=== PATIENT | female | born 1975 | race Caucasian/White ===

== ENCOUNTER → 2017-10-26 19:13 | Outpatient (CLI) | payer OTHER, SELFPAY ==
[2017-10-29 11:42] LABS: HPV Reflexed? NOT INDICATED
== END ==
PROVIDERS: Family Provider Family Medicine; PCP Family Medicine; Visit Provider Obstetrics & Gynecology
DX: Z12.4 Encounter for screening for malignant neoplasm of cervix (principal)
CPT/HCPCS: 88175; G0145

== ENCOUNTER → 2017-11-24 14:36 | Outpatient (CLI) | payer OTHER, SELFPAY ==
[2017-11-24 14:49] LABS: Red Blood Cells-Urine 0 SEEN /hpf (0-5)
[2017-11-24 16:14] LABS: Color, Urine Yellow (Yellow); Glucose, Dipstick Normal (Normal); Ketone-Dipstick Negative (Negative); Leukocyte Esterase-Dipstick 25 /ul (Negative); Nitrite-Dipstick Negative (Negative); Occult Blood-Urine 25 /ul (Negative); Protein-Dipstick 100 mg/dl (Negative); Specific Gravity, Urine 1.025 (1.002-1.030); Urine Bilirubin Dipstick Negative (Negative); Urine Clarity Sl. Cloudy (Clear); Urine Urobilinogen Normal (Normal)
[2017-11-24 16:24] LABS: Bacteria RARE /hpf (None Seen); Mucous, Urine 1+ /hpf (<or=2+); Squamous Epithelial Cells - UA 5-10 SEEN /hpf (5-10); White Blood Cells 0-5 SEEN /hpf (0-5)
== END ==
PROVIDERS: Family Provider Family Medicine; PCP Family Medicine
DX: N39.0 Urinary tract infection, site not specified (principal)
CPT/HCPCS: 81001; 87086; 87088

== ENCOUNTER → 2017-11-29 09:33 | Outpatient (CLI) | payer SELFPAY ==
--- NOTE | 2017-11-29 09:44 | US_ITS ---
STUDY: RENAL ULTRASOUND - COMPLETE REASON FOR EXAM: Female, 42 years old. Hematuria TECHNIQUE: Ultrasound evaluation of the kidneys was performed with real-time and static sneed-scale imaging. COMPARISON: None. FINDINGS: The study is technically limited secondary to patient obesity. RIGHT KIDNEY: Normal location of the right kidney, which is normal in size. The right kidney measures 13.3 x 4.5 x 5.9 cm. There is a normal cortex of the right kidney. The renal cortex measures 1.9 cm. There is no right renal mass or cyst. There are no right renal calculi. There is no right hydronephrosis. DISTAL RIGHT URETER: There is non-visualization of the distal right ureter. There is no demonstrated right ureterovesical junction calculus. There is no demonstrated right ureteral jet. LEFT KIDNEY: Normal location of the left kidney, which is normal in size. The left kidney measures 12.1 x 4.6 x 4.4 cm. There is a normal cortex of the left kidney. The renal cortex measures 1.3 cm. There is no left renal mass or cyst. There are no left renal calculi. There is no left hydronephrosis. DISTAL LEFT URETER: There is non-visualization of the distal left ureter. There is no demonstrated left ureterovesical junction calculus. There is a visualized left ureteral jet. BLADDER: The distended urinary bladder has a volume of 54 ml. There is a normal wall thickness of the distended urinary bladder. There is no demonstrated mass within the urinary bladder. There are no demonstrated bladder calculi. US/Kidney and Bladder IMPRESSION: Technically limited study secondary to patient obesity. The kidneys appear within normal limits. The left ureteral jet was identified. The right ureteral jet was not seen. The bladder is unremarkable. Electronically Signed: Michael Alejandro MD at 23:48 EDT , Service support ,
--- NOTE | 2017-11-29 11:03 | RAD_ITS ---
STUDY: X-RAY - ABDOMEN/PELVIS REASON FOR EXAM: Female, 42 years old. Hematuria times several months TECHNIQUE: Two AP supine views of the abdomen and pelvis. COMPARISON: None. FINDINGS: The lung bases are not included in the [id number] of the study. There is an unremarkable bowel gas pattern. There is no demonstrated free abdominal air. The visualized liver, spleen and kidneys are grossly normal in size and morphology. Normal soft tissue structures. Normal visualized osseous structures. RAD/Abdomen Single View IMPRESSION: Normal x-ray examination of the abdomen and pelvis. Electronically Signed: Michael Alejandro MD at 23:49 EDT , Service support ,
== END ==
PROVIDERS: Family Provider Family Medicine; PCP Family Medicine
DX: R31.9 Hematuria, unspecified (principal)
CPT/HCPCS: 74018; 76770

== ENCOUNTER 2017-12-10 13:23 | Emergency (ER) | payer OTHER, SELFPAY ==
[2017-12-10 13:25] VITALS: BP 156/86; PULSE 112; RESP 16; TEMP 36.8; O2SAT 100; BMI 35.0
[2017-12-10 13:41] VITALS: BP 129/99; BP 139/100; BP 140/91; PULSE 101; PULSE 105; PULSE 117
[2017-12-10 14:06] LABS: Absolute Lymphocyte Count 2.28 X10^3/ul (0.83-4.51); Basophil# 0.02 X10^3/uL; Basophil% 0.3 % (0-1); Eosinophil# 0.03 X10^3/uL; Eosinophils% 0.4 % (0-5); Hematocrit 41.7 % (37-47); Hemoglobin 13.7 g/dl (12.0-15.0); Lymphocyte # 2.28 X10^3/ul (4.0); Lymphocyte % 29.3 % (19-41); Mean Corp Hgb Conc 32.9 g/gl (32-36); Mean Corpuscular Hgb 29.7 pg (27.0-32.0); Mean Corpuscular Volume 90.5 fL (81-99); Monocyte# 0.42 X10^3/uL; Monocyte% 5.4 % (0-10); Neutrophil # 5.03 X10^3/uL (2.7-7.7); Neutrophil % 64.6 % (47-70); Platelet Count 83 K/mm3 (150-450); RBC Distribution Width CV 12.9 % (11.6-14.6); RBC Distribution Width SD 42.6 fl (35.1-43.9); Red Blood Count 4.61 M/mm3 (4.2-5.4); White Blood Count 7.8 K/mm3 (4.4-11.0)
[2017-12-10 14:09] LABS: POSITIVE COUNT NO; POSITIVE DIFFERENTIAL NO; POSITIVE MORPHOLOGY NO
[2017-12-10 14:24] LABS: Anion Gap 7 (5-15); BUN 14 mg/dL (7-18); BUN/Creat Ratio 22.2 RATIO (10-20); Calcium,Total 8.8 mg/dL (8.5-10.1); Chloride 108 mmol/L (98-107); Creatinine, Serum 0.63 mg/dL (0.55-1.02); EST Glomerular Filtration Rate 110 mL/min (>60); Est Glom Filt Rate - Afr Amer 133 mL/min (>60); Estimated Creatinine Clearance 101.48 ml/min; Glucose 89 mg/dL (74-106); Potassium 3.7 mmol/L (3.5-5.1); Sodium Level 139 mmol/L (136-145)
[2017-12-10 14:30] VITALS: BP 141/101
[2017-12-10 14:45] VITALS: BP 139/90
[2017-12-10 15:00] VITALS: BP 146/100
[2017-12-10 15:25] LABS: Bacteria 0 SEEN /hpf (None Seen); Mucous, Urine 0 SEEN /hpf (<or=2+); White Blood Cells 0 SEEN /hpf (0-5)
[2017-12-10 15:26] VITALS: BP 139/104; PULSE 93; RESP 14; O2SAT 98
[2017-12-10 15:28] LABS: Color, Urine Yellow (Yellow); Glucose, Dipstick Normal (Normal); Ketone-Dipstick Negative (Negative); Leukocyte Esterase-Dipstick Negative /ul (Negative); Nitrite-Dipstick Negative (Negative); Occult Blood-Urine 25 /ul (Negative); Protein-Dipstick 100 mg/dl (Negative); Urine Bilirubin Dipstick Negative (Negative); Urine Clarity Sl. Cloudy (Clear); Urine Urobilinogen Normal (Normal)
[2017-12-10 15:54] LABS: Red Blood Cells-Urine 0-5 SEEN /hpf (0-5); Squamous Epithelial Cells - UA 0-5 SEEN /hpf (5-10)
[2017-12-10 16:23] LABS: Platelet Count 207 K/mm3 (150-450)
--- NOTE | 2017-12-10 16:23 | ED.DCSUM_ITS ---
- ER Visit Summary Date of Service: 12/10/17 Chief Complaint: [Abnormal labs] History of Present Illness: The patient is a 42 F [presents the emergency department with complaint of abnormal labs and was told that she needed a blood transfusion. Patient states that she had blood work done at her primary care physician's office 2 days ago and today she was called and told that she may have lymphoma and that she needed a blood transfusion. Patient states that she had several urinary tract infections over last several months and is been having a lot of fatigue so basic labs were done yesterday. Patient denies urinary symptoms currently. Patient denies any fevers currently. She denies any chest pain or shortness of breath. Patient's last menstrual period was 5 days ago and it was very light. Patient denies any rectal bleeding. Blood work sent with patient showed a hemoglobin of 4.7 along with a platelet count of 18,000 and a white blood cell count of 1.6.] Physical Examination: [HEENT-PERRLA, EOMI. Cranial nerves II through XII grossly intact. TMs clear. Mucous membranes moist. No adenopathy. Cardiovascular-regular rate and rhythm without murmur or ectopy Lungs-clear to auscultation, chest wall stable without crepitus or subcu emphysema Abdomen-normoactive bowel sounds, soft, nontender, no rebound or rigidity, no peritoneal signs. Extremities-intact ?4, normal range of motion, normal pulses, atraumatic] Test Results: [CBC with differential obtained here showed a white count of 7.8, hemoglobin 13.7, hematocrit 46, platelets 83. Chemistries unremarkable. BUN was 14 and creatinine 0.63. Urinalysis was normal. Orthostatic vital signs were negative.] Emergency Department Course and Treatment: [I discussed case with patient's primary care physician who was able to send old lab values the patient had had drawn prior to the labs done on 12/09/2017. On prior CBCs one dated from September 2017 it was noted that her CBC was normal. Patient also had a CBC from 2016 and October which also was normal. I did discuss case with Dr. Erickson is on-call for oncology who asked that I send off a repeat platelet count and a sodium citrate tube and if normal then the patient did not need to follow-up with normal their office however if the platelet count is still low patient to follow -up as an outpatient with her office for the thrombocytopenia. At this point is felt that either a lab error occurred on the blood work from 2 days ago versus possibly accidental exchange of patient lab values. Patient clinically does not appear ill.] Treatment Plan: [Follow-up with primary care physician and Dr. Erickson] Disposition: [Discharged home in stable condition] Impression: [Feared complaint of abnormal labs] This note was generated with [employer] dictation software. It may contain incorrect words, spelling, and punctuation that were not noted in review of the chart prior to signing ED Disposition - Plan for ED Patient: Chief Complaint: General Illness Referrals: Scott Kurtz [Primary Care Provider] -
--- NOTE | 2017-12-10 16:23 | ED.DEP ---
ED Disposition - Plan for ED Patient: Chief Complaint: General Illness Referrals: Scott Kurtz [Primary Care Provider] - 3-5 Days Linnea Erickson MD [STAFF PHYSICIAN] - As Needed Additional Instructions: Concern for abnormal labs may have been to Laboratory error or accidental mixing of patient results.
== END 2017-12-10 16:54 | disposition home or self-care (01) ==
PROVIDERS: Emergency Provider Emergency Medicine
DX: Z03.89 Encounter for observation for other suspected diseases and conditions ruled out (principal); R79.9 Abnormal finding of blood chemistry, unspecified; R53.83 Other fatigue; Z87.440 Personal history of urinary (tract) infections; I25.10 Atherosclerotic heart disease of native coronary artery without angina pectoris; E11.9 Type 2 diabetes mellitus without complications; E03.9 Hypothyroidism, unspecified; Z86.79 Personal history of other diseases of the circulatory system; Z86.39 Personal history of other endocrine, nutritional and metabolic disease; Z79.899 Other long term (current) drug therapy
CPT/HCPCS: 80048; 81001; 85025; 85049; 86850; 86900; 99284; A4216

== ENCOUNTER → 2018-01-17 13:05 | Outpatient (CLI) | payer OTHER, SELFPAY ==
[2018-01-17 16:11] LABS: hCG Titer Quant., Serum 14 mIU/mL (<9 non-preg)
== END ==
PROVIDERS: Visit Provider Obstetrics & Gynecology
DX: O20.0 Threatened abortion (principal); N91.2 Amenorrhea, unspecified; Z3A.00 Weeks of gestation of pregnancy not specified
CPT/HCPCS: 36415; 84702

== ENCOUNTER → 2018-01-24 14:33 | Outpatient (CLI) | payer OTHER, SELFPAY ==
[2018-01-24 15:00] LABS: Hematocrit 43.1 % (37-47); Hemoglobin 14.2 g/dl (12.0-15.0); Mean Corp Hgb Conc 32.9 g/gl (32-36); Mean Corpuscular Hgb 30.3 pg (27.0-32.0); Mean Corpuscular Volume 92.1 fL (81-99); Mean Platelet Vol. 10.4 fl (6.2-12.0); Platelet Count 180 K/mm3 (150-450); RBC Distribution Width CV 12.5 % (11.6-14.6); RBC Distribution Width SD 41.2 fl (35.1-43.9); Red Blood Count 4.68 M/mm3 (4.2-5.4); White Blood Count 7.9 K/mm3 (4.4-11.0)
[2018-01-24 15:02] LABS: Scan Indicated on CBC? Y/N NO
== END ==
PROVIDERS: Visit Provider Obstetrics & Gynecology
DX: O03.9 Complete or unspecified spontaneous abortion without complication (principal); R51 Headache; R42 Dizziness and giddiness
CPT/HCPCS: 36415; 85027

== ENCOUNTER → 2018-03-22 15:09 | Outpatient (CLI) | payer OTHER, SELFPAY ==
[2018-03-22 15:57] LABS: Color, Urine Yellow (Yellow); Glucose, Dipstick Normal (Normal); Ketone-Dipstick 5 mg/dl (Negative); Leukocyte Esterase-Dipstick 25 /ul (Negative); Nitrite-Dipstick Negative (Negative); Occult Blood-Urine 25 /ul (Negative); Protein-Dipstick 100 mg/dl (Negative); Specific Gravity, Urine 1.025 (1.002-1.030); Urine Bilirubin Dipstick Negative (Negative); Urine Clarity Clear (Clear); Urine Urobilinogen 1 mg/dl (Normal)
[2018-03-22 16:11] LABS: Red Blood Cells-Urine 0-5 SEEN /hpf (0-5); Squamous Epithelial Cells - UA 0-5 SEEN /hpf (5-10); White Blood Cells 0-5 SEEN /hpf (0-5)
[2018-03-22 16:12] LABS: Bacteria 1+ /hpf (None Seen); Mucous, Urine RARE /hpf (<or=2+)
[2018-03-22 16:39] LABS: Anion Gap 10 (5-15); Chloride 105 mmol/L (98-107); Potassium 3.9 mmol/L (3.5-5.1); Sodium Level 139 mmol/L (136-145); Thyroid Stim Hormone (TSH) 0.08 uIU/mL (0.358-3.74)
== END ==
DX: E03.9 Hypothyroidism, unspecified (principal); E66.9 Obesity, unspecified
CPT/HCPCS: 36415; 80051; 81001; 84443; 84481

== ENCOUNTER → 2018-03-24 09:10 | Outpatient (CLI) | payer OTHER, SELFPAY ==
[2018-03-24 10:43] LABS: PTHIN 86.8 pg/mL (18.4-80.1)
[2018-03-25 09:02] LABS: Thyroid Peroxidase AB 9 IU/mL (0-34)
== END ==
DX: E03.9 Hypothyroidism, unspecified (principal); E66.9 Obesity, unspecified
CPT/HCPCS: 83970; 86376

== ENCOUNTER → 2018-04-12 15:18 | Outpatient (CLI) | payer OTHER, SELFPAY ==
[2018-04-12 16:34] LABS: Calcium,Total 9.1 mg/dL (8.5-10.1)
[2018-04-13 09:14] LABS: PTHIN 63.9 pg/mL (18.4-80.1)
[2018-04-13 09:16] LABS: Vitamin D,25 Hydroxy 18.4 ng/mL (29.95-100.01)
== END ==
DX: E03.9 Hypothyroidism, unspecified (principal); E21.0 Primary hyperparathyroidism
CPT/HCPCS: 36415; 82306; 82310; 82330; 83970

== ENCOUNTER → 2018-04-22 12:30 | Outpatient (CLI) | payer OTHER, SELFPAY ==
[2018-04-22 13:43] LABS: Calcium,Total 8.6 mg/dL (8.5-10.1)
[2018-04-22 13:58] LABS: PTHIN 165.3 pg/mL (18.4-80.1)
== END ==
DX: E21.0 Primary hyperparathyroidism (principal)
CPT/HCPCS: 36415; 82310; 82330; 83970

== ENCOUNTER → 2018-06-08 09:29 | Outpatient (CLI) | payer OTHER, SELFPAY ==
[2018-06-08 11:14] LABS: Calcium,Total 9.2 mg/dL (8.5-10.1); Free T3 5.2 pg/mL (2.18-3.98)
[2018-06-08 11:17] LABS: Vitamin D,25 Hydroxy 38.1 ng/mL (29.95-100.01)
--- OUTSIDE RECORDS SUMMARY | 2018-08-03 16:46 | XMS RPT_ITS ---
:1975 Author Organization OHIP Support Name Relationship Address Phone UE Unavailable Unavailable Unavailable GOODTONI BETANCOURTE Unavailable [address] + [place] [address] UE Unavailable Unavailable Unavailable GOODPATRIA BETANCOURT Unavailable [address] + [place] [address] UE Unavailable Unavailable Unavailable GOODTONI BETANCOURTE Unavailable [address] + [place] [address] UE Unavailable Unavailable Unavailable GOODTONIE Unavailable [address] + [place] [address] UE Unavailable Unavailable Unavailable GOODTONI BETANCOURTE Unavailable [address] + [place] [address] UE Unavailable Unavailable Unavailable GOODTONI BETANCOURTE Unavailable [address] + [place] [address] UE Unavailable Unavailable Unavailable GOODTONI BETANCOURTE Unavailable [address] + [place] [address] UE Unavailable Unavailable Unavailable GOOD PATRIA Unavailable [address] + [place] [address] UE Unavailable Unavailable Unavailable GOOD PATRIA Unavailable [address] + [place] [address] UE Unavailable Unavailable Unavailable GOOD PATRIA Unavailable [address] + [place] [address] UE Unavailable Unavailable Unavailable GOOD PATRIA Unavailable [address] + [place] [address] UE Unavailable Unavailable Unavailable GOOD PATRIA Unavailable [address] + [place] [address] UE Unavailable Unavailable Unavailable GOOD, PATRIA Unavailable [address] [phone] [place] [address] UE Unavailable Unavailable Unavailable GOOD, PATRIA Unavailable [address] [phone] [place] [address] UE Unavailable Unavailable Unavailable GOOD, PATRIA Unavailable [address] [phone] [place] [address] Care Team Providers Name Role Phone MARV LOUIE, DR. GEORGES Attending Unavailable MARV LOUIE, DR. GEORGES Primary Care Unavailable FANNING, CONCEPCION Oconnor Referring Unavailable FANNING, CONCEPCION Oconnor Referring Unavailable FANNING, CONCEPCION Oconnor Attending Unavailable RESSEGERSCOTT BENJIE Referring Unavailable FANNING, CONCEPCION Oconnor Referring Unavailable FANNING, CONCEPCION cOonnor Attending Unavailable FANNING, CONCEPCION Oconnor Referring Unavailable KilConnie cleary Attending Unavailable Ashtyn, Dennis Attending Unavailable RESSEGERSCOTT Referring Unavailable Benekos, Lindsey Attending Unavailable Luis Alberto, Skip Primary Care Unavailable Benekos, Lindsey Referring Unavailable Luis Alberto, Skip Primary Care Unavailable RESSCOTT KNOWLES Attending Unavailable RESSESCOTT MATTA Referring Unavailable RESSEPAXTON, SCOTT Attending Unavailable RESSEGER, SCOTT Referring Unavailable Luis Alberto, Skip Primary Care Unavailable Ashtyn, Dennis Attending Unavailable Ashtyn, Dennis Referring Unavailable RESSEGER, SCOTT Primary Care Unavailable UngSanjuana laird Attending Unavailable BERESESCOTT MATTA Primary Care Unavailable Benekoshravan, Lindsey Attending Unavailable BenekoLindsey cheney Attending Unavailable BERESEGER SCOTT Primary Care Unavailable RESSEGERSCOTT Attending Unavailable RESSEGER, SCOTT Primary Care Unavailable RESSEGERSCOTT Referring Unavailable RESSEGERSCOTT Attending Unavailable RESSESCOTT MATTA Primary Care Unavailable RESELENI SCOTT Referring Unavailable SHAHEEN ELIAS Attending Unavailable SHAHEEN ELIAS Referring Unavailable SCOTT KURTZ Primary Care Unavailable SCOTT KURTZ Consulting Unavailable SHAHEEN ELIAS Attending Unavailable SCOTT KURTZ Primary Care Unavailable SHAHEEN ELIAS Referring Unavailable SCOTT KURTZ Attending Unavailable SCOTT KURTZ Primary Care Unavailable SCOTT KURTZ Referring Unavailable SCOTT KURTZ Attending Unavailable BERESEGER, SCOTT Referring Unavailable RESSEGER, SCOTT Primary Care Unavailable PROBLEMS PROBLEMS DATE TYPE CONDITION / CODE ATTENDING STATUS SOURCE 06/27/2018 Unknown R06.09 - Other Ashtyn, Dennis Active [place] forms of dyspnea / Community R06.09(ICD-10) Hospital Repository 06/16/2018 Unknown E03.9 - RESSEGER, Active [place] Hypothyroidism, [facility] unspecified / Hospital E03.9(ICD-10) Repository 06/16/2018 Unknown N39.0 - Urinary RESSEGER, Active [place] tract infection, [facility] site not specified Hospital / N39.0(ICD-10) Repository 06/16/2018 Unknown E87.8 - Other RESSEGER, Active [place] disorders of [facility] electrolyte and Hospital fluid balance, not Repository elsewhere classified / E87.8(ICD-10) 06/21/2018 Unknown E55.9 - Vitamin D RESSEGER, Active [place] deficiency, [facility] unspecified / Hospital E55.9(ICD-10) Repository 01/17/2018 Unknown O20.0 - Threatened Lindsey Whaley Active [place] / Community O20.0(ICD-10) Hospital Repository 01/17/2018 Unknown N91.2 - Jovana Lindsey Active [place] Amenorrhea, Community unspecified / Hospital N91.2(ICD-10) Repository 12/15/2017 Active Other pancytopenia NA Active [facility] / D61.818(ICD-10) Main [place] Repository 04/18/2018 Unknown Z03.89 - Encounter Sanjuana Branch Active [place] for observation Community for other Hospital suspected diseases Repository and conditions ruled out / Z03.89(ICD-10) 10/27/2017 Unknown Z12.4 - Encounter Lindsey Whaley Active [place] for screening for Community malignant neoplasm [facility] cervix / Repository Z12.4(ICD-10) PROCEDURES PROCEDURES No Procedure Records FoundRESULTS RESULTS T4 TOTAL, THYROXIN Collected: 06/24/2018 Status: F Source: [place] 3:04 PM [facility] REPOSITORY TYPE CODE TESTS RESULT OUT OF RANGE REFERENCE UNITS LAB L501.9310 4.8-13.9 ug/dL T4 Normal THYROXIN 11.6 Performed By: #### L501.9310, L501.9520 #### [place] [facility] [place], [address] THYROID STIM HORMONE Collected: 06/24/2018 Status: F Source: [place] (TSH) 3:04 PM [facility] REPOSITORY TYPE CODE TESTS RESULT OUT OF RANGE REFERENCE UNITS LAB L501.9520 0.358-3.74 uIU/mL Low TSH 0.01 Performed By: #### L501.9310, L501.9520 #### [facility] [address] [place], [place], [address] BNP,B-TYPE NATRIURETIC Collected: 06/24/2018 Status: F Source: [place] PEPTIDE 3:04 PM [facility] REPOSITORY TYPE CODE TESTS RESULT OUT OF RANGE REFERENCE UNITS LAB L503.6620 0-100 pg/mL Normal B-TYPE 3.4 STORMY PEP Performed By: #### L503.6620 #### [facility] [address] [place], [address] CARDIOLOGY VISIT Observed: 06/24/2018 Status: F Source: [place] REPORT 2:08 PM [facility] REPOSITORY [facility] [address] [place] [address] OFFICE VISIT Date of Service: 06/24/18 MR#: [id number] Acct: [id number] Name: RAYA GOOD I Rep #: [id number] : 1975 Provider: Dennis Chamorro MD Age/Sex: 42/F [place] [facility] Status: Signed HPI HPI Chief Complaint: Initial visit Details: RAYA GOOD, is a 42 F who presents to the office today for an initial visit. She is a lady with a history of thyroid disease who says that she has been having fluid retention as well as fatigue for a number of weeks and months. She also has some shortness of breath and has complained of some chest tightness. She thinks that she has gained over 25 pounds in weight. She denies any chest pain per se no palpitations no dizziness or diaphoresis no near syncope or syncope. Her mood is not like it used to be before. She is on [place] Thyroid at this time. Her physical exam demonstrates clear lung vargas regular rate and rhythm no pedal edema is noted. Her blood pressure is under good control. Intake Vital Signs06/24/18 Height 5 ft 2 in Intake Visit Reasons: pcp referred Allergies amitriptyline Adverse Reaction (Verified 06/24/18 13:26) Unknown liothyronine [From Cytomel] Adverse Reaction (Verified 06/24/18 13:26) Unknown Medications Thyroid,Pork [[place] Thyroid] 180 mg PO DAILY 06/09/17 [History Confirmed 06/24/18] ergocalciferol (vitamin D2) 50,000 unit tablet unit PO tab 06/24/18 [History Confirmed 06/24/18] furosemide 20 mg tablet 20 mg PO DAILY 30 Days #30 tab 06/24/18 [History Confirmed 06/24/18] [facility] Medical History Hypothyroidism (Chronic) Obesity (Chronic) Vitamin D deficiency (Chronic) Surgical History History of (Resolved) History of dilatation and curettage (Resolved) Social History Smoking Status: Never smoker ROS Const Const: Positive for fatigue (for the past year), weakness and weight gain (C/O increase in weight 25 lbs since last May); negative for difficulty sleeping, frequent falls, excessive sweating or headache(s) Eyes Eyes: Negative for loss of peripheral vision, transient loss of vision, blurry vision, tunnel vision or double vision ENT ENT: Negative for headache(s), dizziness, Nosebleed/epistaxis or balance problems Cardio Chest Pain: Yes Frequency: monthly Character: tightness Onset: other (with anxiety) Palpitations: No Edema: None Muscle aches with walking: None Resp Respiratory: Positive for SOB with activity (when climbing stairs); negative for SOB at rest, SOB orthopnea\SOB lying down, paroxysmal nocturnal dyspnea or Cough GI GI: Negative nausea, heartburn, black,tarry stools or vomiting : Negative for hematuria Musc Musc: Negative for balance problems, muscle aches/ myalgia, muscle weakness or joint pain Skin Skin: Negative non-healing lesions, unusual bruising or rash Neuro Neuro: Positive for weakness and memory loss (C/O brain fog); negative for frequent falls, headache(s), blurry vision, double vision, dizziness, lightheadedness, orthostatic symptoms, near syncope, syncope or lack of coordination Hima Hematologic/Lymphatic: Negative for easy bruising or easy bleeding Endo Endo: Positive for fatigue (for the past year); negative for excessive sweating or increased thirst/drinking Psych Psych: Negative for anxiety or depression Allergy Allergy/Immunology: Negative for hives, Negative for rash Cardiology Exam Const Appearance: cooperative, healthy appearing, well developed, well groomed and no acute distress Nutritional Appearance: well nourished and average body habitus Orientation: alert, awake and oriented x3 Head Head: normal to inspection, normocephalic and atraumatic Ears: hearing grossly normal bilaterally and external ears normal Nose: external nose normal, nasal mucous membranes and turbinates normal, nares normal, septum normal, no nasal discharge Face and Sinus: face symmetric Mouth: oral mucosae normal, tongue normal, oropharynx normal and moist mucous membranes Teeth and gingiva: dentition normal Throat: posterior oropharynx normal, tonsils normal and uvula midline Eyes General: appearance normal, both eyes and all related structures Eyelids: eyelids normal Conjunctivae: conjunctivae normal Pupils: PERRL, normal by confrontation and accommodation normal EOM: EOM intact bilaterally Neck Neck: normal visual inspection, trachea midline and no JVD JVD: +5 Carotids: normal carotid upstroke and bounding pulses Chest Chest inspection: normal inspection of the chest, symmetric chest movement and normal respiratory effort Auscultation: Bilateral: Clear to Auscultation Cardio Palpation: normal PMI Rate: regular rate Rhythm: regular rhythm Heart sounds: S1 normal, S2 normal and normal, physiologic split S2; negative rub, gallop or murmur GI GI: normal to inspection, soft, no hepatosplenomegaly and bowel sounds present Neuro General: alert, awake, oriented x3, no focal sensory deficit, gait normal and moves all extremities Skin Skin: no rashes or lesions noted Extremities Pulses: Normal: Right Femoral Pulse, Left Femoral Pulse, Right Dorsalis Pedis Pulse, Left Dorsalis Pedis Pulse, Right Posterior Tibial Pulse, Left Posterior Tibial Pulse, Right Radial Pulse, Left Radial Pulse Lower Extremity Edema: None: Bilateral Musculoskel Musculoskeletal: No joint tenderness Psych Psychological: normal affect Assessment AND Plan 1. Dyspnea on exertion R06.09 Plan She does have dyspnea on exertion as well as fatigue her last EKG demonstrated sinus rhythm a year ago. Her hemoglobin is noted to be normal and her chemistries are normal. Her TSH was 0.08 in March 2018 with a free T3 of 3.8. T4 was not performed. At this time my recommendation will be to obtain a natruretic peptide as well as an echocardiogram and depending on the findings further recommendations will be made. Orders Orders: Plan Detail Follow Up 6 Weeks (mmm) Coding Level of Care Code Off vis,new,level 3 Diagnoses Dyspnea on exertion R06.09 Coding Level of Care Code Off vis,new,level 3 Diagnoses Dyspnea on exertion R06.09 06/24/18 1408 <Electronically signed by Dennis Chamorro MD> Date Dennis Chamorro MD Cosigner Signature: Date (if applicable) CC: SCOTT KURTZ 12 LEAD EKG PERFORMED Observed: 06/24/2018 Status: F Source: [place] [facility] 2:07 PM [facility] REPOSITORY [facility] [address] [place] [address] 12 Lead EKG performed by [facility] 06/24/18 1404 MR#: [id number] Acct: [id number] Name: RAYA GOOD I Rep #: [id number] : 1975 42 From: Dennis Chamorro MD Attending Dr: Dennis Chamorro MD Status: DEP AMB Ordering Dr: Dennis Chamorro MD Date: 06/24/18 [place] [facility] [place]: F C Admitted: [facility]/12 Lead EKG performed by [facility] Sinus Rhythm WITHIN NORMAL LIMITS 06/25/18 1147 <Electronically signed by Dennis Chamorro MD> Date Dennis Chamorro MD CC: SCOTT KURTZ Date Dictated: 06/24/181403 Date Transcribed: 06/24/181403 Hand Packer: CO Signed URINALYSIS, ROUTINE Collected: 06/14/2018 Status: F Source: [place] ([place]IP[place]) 10:04 AM [facility] REPOSITORY Order Comment: How was Urine Obtained? CLEAN CATCH TYPE CODE TESTS RESULT OUT OF RANGE REFERENCE UNITS LAB L400.3000 Yellow COLOR Normal Yellow LAB L400.3050 Clear Normal CLARITY Clear LAB L400.3200 Normal mg/dl Normal GLUCOSE, UR Normal LAB L400.3300 Negative mg/dL Normal BILIRUBIN URINE Negative LAB L400.3400 Negative mg/dl Normal KETONE UR Negative LAB L400.3465 1.002-1.030 Normal SP.GR. DIPSTX 1.025 LAB L400.3550 5.0 - 8.0 pH UR Normal 5.0 LAB L400.3600 Negative mg/dl High PROT DIPSTX 100 LAB L400.3700 Normal mg/dl Normal UROBILI Normal LAB L400.3750 Negative Normal NITRITE UR Negative LAB L400.3780 Negative /ul High 10 OCCULT BLOOD-UR LAB L400.3800 Negative /ul LEUK Normal ESTERASE Negative Performed By: #### L400.2010 #### [facility] [address] [place], [place], [address] CBC W/DIFF, AUTOMATED Collected: 06/14/2018 Status: F Source: [place] 10:04 AM [facility] REPOSITORY TYPE CODE TESTS RESULT OUT OF RANGE REFERENCE UNITS LAB L100.1000 4.4-11.0 K/mm3 Normal WBC 7.6 LAB L100.1200 4.2-5.4 M/mm3 Normal RBC 4.68 LAB L100.1300 12.0-15.0 g/dl Normal HGB 14.1 LAB L100.1400 37-47 % Normal HCT 42.1 LAB L100.1500 81-99 fL Normal MCV 90.0 LAB L100.1600 27.0-32.0 pg Normal MCH 30.1 LAB L100.1700 32-36 g/gl Normal MCHC 33.5 LAB L100.1810 11.6-14.6 % Normal RDW CV 12.2 LAB L100.1820 35.1-43.9 fl Normal RDW SD 39.8 LAB L100.1900 150-450 K/mm3 Normal PLT 156 LAB L100.2000 6.2-12.0 fl Normal MPV 10.6 LAB L100.2100 47-70 % Normal NEUT% 65.9 LAB L100.2200 19-41 % Normal LY% 27.5 LAB L100.2300 0-10 % Normal MONO% 5.8 LAB L100.2400 0-5 % Normal EO% 0.7 LAB L100.2500 0-1 % Normal BASO% 0.1 LAB L100.2550 0.0-0.9 % Normal IM GRAN % 0.000 Result Comment: IG% - Immature Granulocytes (promyelocytes, myelocytes and metamyelocytes) > 1% indicates that a LEFT SHIFT is Present. LAB L100.2620 2.0-7.7 X10 3/uL Normal Absolute Neut 5.0 LAB L100.2720 0.83-4.51 X10 3/ul Normal Absolute Lymph 2.08 Performed By: #### L100.0100 #### [facility] [address], [place], [address] HEMOGLOBIN A1C Collected: 06/14/2018 Status: F Source: [place] 10:04 [facility] REPOSITORY TYPE CODE TESTS RESULT OUT OF RANGE REFERENCE UNITS LAB L501.9985 4.2-6.3 % Normal HGB A1C 5.3 Performed By: #### L501.9985 #### [facility] [address] [facility] [place], [address] SERUM CREATININE AND Collected: 06/14/2018 Status: F Source: [place] GFR 10:04 [facility] REPOSITORY TYPE CODE TESTS RESULT OUT OF RANGE REFERENCE UNITS LAB L501.1100 0.55-1.02 mg/dL Normal 0.63 CREAT,SERUM Result Comment: The validity of the calculated GFR AND GFRAA in patients over 70 years has not been determined. Clinical correlation is essential. LAB L501.1110 >60 mL/min Normal EST GFR 110 Result Comment: Non- GFR Calc LAB L501.1115 >60 mL/min Normal EST GFR - AA 133 Result Comment: GFR Calc Performed By: #### L501.1105, L501.5200, L501.5294, L501.60182 #### [facility] [address] [place], [address] MAGNESIUM Collected: 06/14/2018 Status: F Source: [place] 10:04 AM [facility] REPOSITORY TYPE CODE TESTS RESULT OUT OF RANGE REFERENCE UNITS LAB L501.5200 1.6-2.6 mg/dL Normal MG 1.9 Performed By: #### L501.1105, L501.5200, L501.5294, L501.56989 #### [facility] [address] [place], [address] ELECTROLYTE PANEL Collected: 06/14/2018 Status: F Source: [place] 10:04 AM [facility] REPOSITORY TYPE CODE TESTS RESULT OUT OF RANGE REFERENCE UNITS LAB L501.5300 136-145 mmol/L Normal NA 140 LAB L501.5600 3.5-5.1 mmol/L Normal K 4.0 LAB L501.5900 98-107 mmol/L Normal CL 106 LAB L501.6100 21.0-32.0 mmol/L Normal CO2 23.0 LAB L501.6200 5-15 Normal GAP 11 Performed By: #### L501.1105, L501.5200, L501.5294, L501.41850 #### [facility] [address] [place], [address] FREE T3 Collected: 06/14/2018 Status: F Source: [place] 10:04 AM [facility] REPOSITORY TYPE CODE TESTS RESULT OUT OF RANGE REFERENCE UNITS LAB L501.15081 2.18-3.98 pg/mL Normal FREE T3 3.8 Performed By: #### L501.1105, L501.5200, L501.5294, L501.52388 #### [facility] [address] [place], [address] CALCIUM,TOTAL Collected: 06/08/2018 Status: F Source: [place] 9:32 AM [facility] REPOSITORY Order Comment: Comments: [id number] IODINE ROYAL BLUE RT PLASMA TYPE CODE TESTS RESULT OUT OF RANGE REFERENCE UNITS LAB L501.2200 8.5-10.1 mg/dL Normal CA 9.2 Performed By: #### L501.2200, L501.14933 #### [facility] [address] [place], [address] FREE T3 Collected: 06/08/2018 Status: F Source: [place] 9:32 AM [facility] REPOSITORY Order Comment: Comments: [id number] IODINE ROYAL BLUE RT PLASMA TYPE CODE TESTS RESULT OUT OF RANGE REFERENCE UNITS LAB L501.14487 2.18-3.98 pg/mL High FREE T3 5.2 Performed By: #### L501.2200, L501.42633 #### [facility] [address] [place], [address] VITAMIN D,25 HYDROXY Collected: 06/08/2018 Status: F Source: [place] 9:32 AM [facility] REPOSITORY TYPE CODE TESTS RESULT OUT OF RANGE REFERENCE UNITS LAB L506.1000 29.95-100.01 ng/mL Normal Vitamin D 38.1 25-OH Result Comment: Vitamin D 25(OH) Status Range Deficiency <20 ng/mL (50nmol/L) Insuffciency 20 - 30 ng/mL (50 - 75 nmol/L) Sufficiency 30 - 100 ng/mL (75 - 250 nmol/L) Toxicity >100 ng/mL (>250 nmol/L) Performed By: #### L506.1000 #### [facility] [address] [place], [address] MISCELLANEOUS LAB Collected: 06/08/2018 Status: F Source: [place] PROCEDURE 9:32 AM [facility] REPOSITORY Order Comment: Comments: [id number] IODINE ROYAL BLUE RT PLASMA Test(s) Ordered: [id number] IODINE ROYAL BLUE RT PLASMA TYPE CODE TESTS RESULT OUT OF RANGE REFERENCE UNITS LAB L801.1541 Normal [facility] LAB TEST Result Comment: TEST RESULT UNITS REFERENCE INTERVAL IODINE, SERUM OR PLASMA 47.3 ug/L 40.0 - 92.0 limit of quantitation = 20 TESTING PERFORMED AT [facility]. ORIGINAL REPORT ON FILE IN LAB CONTAINS ADDITIONAL TEST SITE INFORMATION. Performed By: #### L801.1541 #### [facility] [address] [place], [address] CALCIUM,TOTAL Collected: 04/22/2018 Status: F Source: [place] 12:39 PM [facility] REPOSITORY TYPE CODE TESTS RESULT OUT OF RANGE REFERENCE UNITS LAB L501.2200 8.5-10.1 mg/dL Normal CA 8.6 Performed By: #### L501.2200 #### [facility] [address] [place], [address] PTHIN Collected: 04/22/2018 Status: F Source: [place] 12:39 PM [facility] REPOSITORY TYPE CODE TESTS RESULT OUT OF RANGE REFERENCE UNITS LAB L509.1000 18.4-80.1 pg/mL High PTHIN 165.3 Performed By: #### L509.1000 #### [facility] [address] [place], [address] CALCIUM IONIZED Collected: 04/22/2018 Status: F Source: [place] 12:39 PM [facility] REPOSITORY TYPE CODE TESTS RESULT OUT OF RANGE REFERENCE UNITS LAB L3100.9600 4.5-5.6 mg/dL Normal IONIZED CA 5.2 Result Comment: Performed at: - [facility] [address] [id number] Practice Representative: Jose Harrell PhD, Phone: [phone] Performed By: #### L3100.9600 #### [facility] (refer to report for specific site) refer to report for address and phone number CALCIUM,TOTAL Collected: 04/12/2018 Status: F Source: [place] 3:33 PM [facility] REPOSITORY Order Comment: WANTS THE CA DR.ERMIAS WANTS THE CA VITD PTH IONIZED CA TYPE CODE TESTS RESULT OUT OF RANGE REFERENCE UNITS LAB L501.2200 8.5-10.1 mg/dL Normal CA 9.1 Performed By: #### L501.2200 #### [facility] [address] [facility] [place], [address] PTHIN Collected: 04/12/2018 Status: F Source: [place] 3:33 PM [facility] REPOSITORY Order Comment: WANTS THE CA WANTS THE CA VITD PTH IONIZED CA TYPE CODE TESTS RESULT OUT OF RANGE REFERENCE UNITS LAB L509.1000 18.4-80.1 pg/mL Normal PTHIN 63.9 Performed By: #### L509.1000 #### [facility] [address] [facility] [place], [place], [id number] VITAMIN D,25 HYDROXY Collected: 04/12/2018 Status: F Source: [place] 3:33 PM [facility] REPOSITORY Order Comment: WANTS THE CA WANTS THE CA VITD PTH IONIZED CA TYPE CODE TESTS RESULT OUT OF REFERENCE UNITS RANGE LAB L506.1000 29.95-100.01 ng/mL Low Vitamin D 18.4 25-OH Result Comment: Vitamin D 25(OH) Status Range Deficiency <20 ng/mL (50nmol/L) Insuffciency 20 - 30 ng/mL (50 - 75 nmol/L) Sufficiency 30 - 100 ng/mL (75 - 250 nmol/L) Toxicity >100 ng/mL (>250 nmol/L) Performed By: #### L506.1000 #### [facility] [address] [place], [place], [address] CALCIUM IONIZED Collected: 04/12/2018 Status: F Source: [place] 3:33 PM [facility] REPOSITORY Order Comment: WANTS THE CA WANTS THE CA VITD PTH IONIZED CA TYPE CODE TESTS RESULT OUT OF RANGE REFERENCE UNITS LAB L3100.9600 4.5-5.6 mg/dL Normal IONIZED CA 5.4 Result Comment: Performed at: [address] [id number] Practice Representative: Jose Harrell PhD, Phone: [phone] Performed By: #### L3100.9600 #### [facility] (refer to report for specific site) refer to report for address and phone number PTHIN Collected: 03/24/2018 Status: F Source: [place] 9:16 AM [facility] REPOSITORY Order Comment: NO VRO CHARGE REDRAW TYPE CODE TESTS RESULT OUT OF RANGE REFERENCE UNITS LAB L509.1000 18.4-80.1 pg/mL High PTHIN 86.8 Performed By: #### L509.1000 #### [facility] [address] [place], [address] THYROID PEROXIDASE AB Collected: 03/24/2018 Status: F Source: [place] 9:16 AM [facility] REPOSITORY Order Comment: NO VRO CHARGE REDRAW TYPE CODE TESTS RESULT OUT OF RANGE REFERENCE UNITS LAB L3300.6900 0-34 IU/mL Normal TPO AB 9 [id number] Result Comment: [facility] - [facility] [facility] [address], [place] [id number] Practice Representative: Jose Harrell PhD, Phone: [phone] Performed By: #### [id number] #### [facility] (refer to report for specific site) refer to report for address and phone number URINALYSIS, COMPLETE Collected: 03/22/2018 Status: F Source: [place] 3:17 PM [facility] REPOSITORY Order Comment: Comments: REFLEX CULTURE How was Urine Obtained? CLEAN CATCH TYPE CODE TESTS RESULT OUT OF RANGE REFERENCE UNITS LAB L400.3000 Yellow COLOR Normal Yellow LAB L400.3050 Clear Normal CLARITY Clear LAB L400.3200 Normal mg/dl Normal GLUCOSE, UR Normal LAB L400.3300 Negative mg/dL Normal BILIRUBIN URINE Negative LAB L400.3400 Negative mg/dl High 5 KETONE UR LAB L400.3465 1.002-1.030 Normal SP.GR. DIPSTX 1.025 LAB L400.3550 5.0 - 8.0 pH UR Normal 5.0 LAB L400.3600 Negative mg/dl High PROT DIPSTX 100 LAB L400.3700 Normal mg/dl High 1 UROBILI LAB L400.3750 Negative Normal NITRITE UR Negative LAB L400.3780 Negative /ul High 25 OCCULT BLOOD-UR LAB L400.3800 Negative /ul High LEUK 25 ESTERASE LAB L400.4050 0-5 /hpf WBC Normal 0-5 SEEN LAB L400.4100 0-5 /hpf Normal RBC-UA 0-5 SEEN LAB L400.4150 5-10 /hpf SQUAM Normal EPI 0-5 SEEN LAB L400.4300 None Seen /hpf 1+ Normal BACTERIA LAB L400.4350 <or=2+ /hpf Normal MUCUS, URINE RARE Performed By: #### L400.0001 #### [facility] [address], [address] ELECTROLYTE PANEL Collected: 03/22/2018 Status: F Source: [place] 3:17 PM [facility] REPOSITORY Order Comment: Comments: REFLEX CULTURE TYPE CODE TESTS RESULT OUT OF RANGE REFERENCE UNITS LAB L501.5300 136-145 mmol/L Normal NA 139 LAB L501.5600 3.5-5.1 mmol/L Normal K 3.9 LAB L501.5900 98-107 mmol/L Normal CL 105 LAB L501.6100 21.0-32.0 mmol/L Normal CO2 24.0 LAB L501.6200 5-15 Normal GAP 10 Performed By: #### L501.5294, L501.04964, L501.9520 #### [facility] [address] [place], [place], [address] FREE T3 Collected: 03/22/2018 Status: F Source: [place] 3:17 PM [facility] REPOSITORY Order Comment: Comments: REFLEX CULTURE TYPE CODE TESTS RESULT OUT OF RANGE REFERENCE UNITS LAB L501.61029 2.18-3.98 pg/mL High FREE T3 4.0 Performed By: #### L501.5294, L501.15394, L501.9520 #### [facility] [address] [place], [address] THYROID STIM HORMONE Collected: 03/22/2018 Status: F Source: [place] (TSH) 3:17 PM [facility] REPOSITORY Order Comment: Comments: REFLEX CULTURE TYPE CODE TESTS RESULT OUT OF RANGE REFERENCE UNITS LAB L501.9520 0.358-3.74 uIU/mL Low TSH 0.08 Performed By: #### L501.5294, L501.57925, L501.9520 #### [facility] [address] [place], [address] CBC-COMPLETE BLOOD CNT Collected: 01/24/2018 Status: F Source: [place] NO DIFF 2:34 PM [facility] REPOSITORY TYPE CODE TESTS RESULT OUT OF RANGE REFERENCE UNITS LAB L100.1000 4.4-11.0 K/mm3 Normal WBC 7.9 LAB L100.1200 4.2-5.4 M/mm3 Normal RBC 4.68 LAB L100.1300 12.0-15.0 g/dl Normal HGB 14.2 LAB L100.1400 37-47 % Normal HCT 43.1 LAB L100.1500 81-99 fL Normal MCV 92.1 LAB L100.1600 27.0-32.0 pg Normal MCH 30.3 LAB L100.1700 32-36 g/gl Normal MCHC 32.9 LAB L100.1810 11.6-14.6 % Normal RDW CV 12.5 LAB L100.1820 35.1-43.9 fl Normal RDW SD 41.2 LAB L100.1900 150-450 K/mm3 Normal PLT 180 LAB L100.2000 6.2-12.0 fl Normal MPV 10.4 Performed By: #### L100.0500 #### [facility] [address] [place], [place], [address] HCG TITER QUANT., Collected: 01/17/2018 Status: F Source: [place] 1:09 PM [facility] REPOSITORY TYPE CODE TESTS RESULT OUT OF RANGE REFERENCE UNITS LAB L700.8000 <9 non-preg mIU/mL High HCG 14 QUANT. Performed By: #### L700.8000 #### [facility] [address] [place], [address] PROGRESS Observed: 12/29/2017 Status: COMPLETED Source: [place] 2:46 PM [facility] [place] REPOSITORY HNO ID: [id number] Author: Concepcion Diaz Service: (none) Author Type: Physician Type: Progress Notes Filed: 12/29/2017 2:48 PM Note Text: HPI Raya Good is a 42 year old female who presents in follow up. Lab work up negative overall. I suspect lab error. She saw me December 15, 2017 with severe pancytopenia. She had some edema and swelling in her fingers and toes. This has resolved. On December 09 her white count 1.6 hemoglobin 4.7 platelet count of 18. MCV was normal. She was typed and crossed, given 2 units of packed red cells at [facility]. Liver function tests and chemistries were normal. When she saw me in consultation her white blood cell count is a little bit elevated 11 but her hemoglobin and platelets are otherwise normal. She is not pale or peeked and did not have any symptoms or signs of dyspnea on exertion, chest pain with exertion, etc. her color has not changed. Current Outpatient Prescriptions: ARMOUR THYROID 180 mg tablet TAKE ONE TABLET ONCE EVERY DAY No current facility-administered medications for this visit. ALLERGIES No Known Allergies REVIEW OF SYSTEMS GENERAL: No weight loss, malaise or fevers., SEE HPI HEENT: Negative for frequent or significant headaches, No changes in hearing or vision, no nose bleeds or other nasal problems NECK: Negative for lumps, goiter, pain and significant neck swelling RESPIRATORY: Negative for cough, wheezing or shortness of breath. CARDIOVASCULAR: Negative for chest pain, leg swelling or palpitations. GI: Negative for abdominal discomfort, blood in stools or black stools or change in bowel habits MUSCULOSKELETAL: Negative for joint pain or swelling, back pain or muscle pain. SKIN: Negative for lesions, rash, and itching. PSYCH: Negative for sleep disturbance, mood disorder and recent psychosocial stressors. HEMATOLOGY/LYMPHOLOGY: Negative for prolonged bleeding, bruising easily or swollen nodes. NEURO: No history of headaches, syncope, paralysis, seizures or tremors All other reviewed and negative other than HPI. PHYSICAL EXAM: BP 155/89 Pulse 78 Temp 36.3 ?C (97.4 ?F) (Oral) Resp 18 Ht 156.2 cm (5' 1.5) Wt 92.6 kg (204 lb 3.2 oz) SpO2 98% BMI 37.96 kg/m? General Appearance: alert and oriented, appearing in no acute distress Skin: skin color, texture, turgor normal, no suspicious rashes or lesions. Head: normal. Eyes: Anicteric sclera. Pupils are equally round. Extraocular movements are intact. . Ears: external ears normal Neck: Supple, no adenopathy; thyroid symmetric, normal size, no bruits. Back:no pain with ambulation Lungs: good air exchange overall Heart: RRR Abdomen: No obvious evidence of rebound tenderness or guarding Extremities: Extremities normal. No deformities, edema, or skin discoloration. Good capillary refill.. Musculoskeletal: Spine range of motion normal. Muscular strength intact. Peripheral Pulses: Normal. Neurologic: Gait normal. No gross cerebellar defects Psychiatric: the patient has an appropriate affect Hemoglobin (g/dL) Date Value 12/15/2017 14.0 Hematocrit (%) Date Value 12/15/2017 40.9 WBC (k/uL) Date Value 12/15/2017 11.43 Platelet Count (k/uL) Date Value 12/15/2017 253 ASSESSMENT/PLAN: 1. Other pancytopenia (HCC) - ICD9: 284.19, ICD10: D61.818 Lab error most likely Follow up with PCP Concepcion Diaz MD CNOVSP Observed: 12/29/2017 Status: COMPLETED Source: [place] 2:30 PM [facility] REPOSITORY Visit (SP) Office ([place]) RAYA GOOD I ([id number]) 1975 F Date Time Provider Department 12/29/17 2:30 PM CONCEPCION DIAZ During your visit today, we recorded the following information about you: Temperature Pulse Respiration Blood pressure 97.4 degrees 78/minute 18/minute 155/89 Weight Height 92.6 kg 1.562 m Concepcion Diaz MD 12/29/2017 2:48 PM Signed HPI Raya Guillory Latisha is a 42 year old female who presents in follow up. Lab work up negative overall. I suspect lab error. She saw me December 15, 2017 with severe pancytopenia. She had some edema and swelling in her fingers and toes. This has resolved. On December 09 her white count 1.6 hemoglobin 4.7 platelet count of 18. MCV was normal. She was typed and crossed, given 2 units of packed red cells at [facility]. Liver function tests and chemistries were normal. When she saw me in consultation her white blood cell count is a little bit elevated 11 but her hemoglobin and platelets are otherwise normal. She is not pale or peeked and did not have any symptoms or signs of dyspnea on exertion, chest pain with exertion, etc. her color has not changed. Current Outpatient Prescriptions: ARMOUR THYROID 180 mg tablet TAKE ONE TABLET ONCE EVERY DAY No current facility-administered medications for this visit. ALLERGIES No Known Allergies REVIEW OF SYSTEMS GENERAL: No weight loss, malaise or fevers., SEE HPI HEENT: Negative for frequent or significant headaches, No changes in hearing or vision, no nose bleeds or other nasal problems NECK: Negative for lumps, goiter, pain and significant neck swelling RESPIRATORY: Negative for cough, wheezing or shortness of breath. CARDIOVASCULAR: Negative for chest pain, leg swelling or palpitations. GI: Negative for abdominal discomfort, blood in stools or black stools or change in bowel habits MUSCULOSKELETAL: Negative for joint pain or swelling, back pain or muscle pain. SKIN: Negative for lesions, rash, and itching. PSYCH: Negative for sleep disturbance, mood disorder and recent psychosocial stressors. HEMATOLOGY/LYMPHOLOGY: Negative for prolonged bleeding, bruising easily or swollen nodes. NEURO: No history of headaches, syncope, paralysis, seizures or tremors All other reviewed and negative other than HPI. PHYSICAL EXAM: BP 155/89 Pulse 78 Temp 36.3 ?C (97.4 ?F) (Oral) Resp 18 Ht 156.2 cm (5' 1.5) Wt 92.6 kg (204 lb 3.2 oz) SpO2 98% BMI 37.96 kg/m? General Appearance: alert and oriented, appearing in no acute distress Skin: skin color, texture, turgor normal, no suspicious rashes or lesions. Head: normal. Eyes: Anicteric sclera. Pupils are equally round. Extraocular movements are intact. . Ears: external ears normal Neck: Supple, no adenopathy; thyroid symmetric, normal size, no bruits. Back:no pain with ambulation Lungs: good air exchange overall Heart: RRR Abdomen: No obvious evidence of rebound tenderness or guarding Extremities: Extremities normal. No deformities, edema, or skin discoloration. Good capillary refill.. Musculoskeletal: Spine range of motion normal. Muscular strength intact. Peripheral Pulses: Normal. Neurologic: Gait normal. No gross cerebellar defects Psychiatric: the patient has an appropriate affect Hemoglobin (g/dL) Date Value 12/15/2017 14.0 Hematocrit (%) Date Value 12/15/2017 40.9 WBC (k/uL) Date Value 12/15/2017 11.43 Platelet Count (k/uL) Date Value 12/15/2017 253 ASSESSMENT/PLAN: 1. Other pancytopenia (HCC) - ICD9: 284.19, ICD10: D61.818 Lab error most likely Follow up with PCP Concepcion Diaz MD Referring Provider: CONCEPCION DIAZ [[id number]] Allergies As of Date: 12/29/2017 (No Known Allergies) Date Reviewed: 12/29/2017 Reviewed by: Mamta Lund - Fully Assessed Reason for Visit: Other pancytopenia [Other] Cmt: 2 week follow up Primary Visit Diagnosis:Other pancytopenia (HCC) [D61.818] Follow-up and Disposition History Recorded Prescriptions as of 12/29/2017 Sig: ARMOUR THYROID 180 MG TABLET TAKE ONE TABLET ONCE EVERY DAY Problem List As Of Date 12/29/2017 Noted Resolved Other pancytopenia (HCC) [D61.818] INVALID FOR* Encounter Status:Closed by CONCEPCION DIAZ MD on 12/29/17 PROGRESS Observed: 12/15/2017 Status: COMPLETED Source: [place] 3:53 PM [facility] [place] REPOSITORY HNO ID: [id number] Author: Concepcion Diaz Service: (none) Author Type: Physician Type: Progress Notes Filed: 12/15/2017 3:59 PM Note Text: HPI Raya Good is a 42 year old female who presents consultation December 15, 2017 with severe pancytopenia. She had some edema and swelling in her fingers and toes. This has resolved. On December 09 her white count 1.6 hemoglobin 4.7 platelet count of 18. MCV was normal. She was typed and crossed, given 2 units of packed red cells at [facility]. Liver function tests and chemistries were normal. Today in consultation her white blood cell count is a little bit elevated 11 but her hemoglobin and platelets are otherwise normal. She is not pale or peeked and did not have any symptoms or signs of dyspnea on exertion, chest pain with exertion, etc. her color has not changed. PAST MEDICAL HISTORY Diagnosis Date - Abnormal complete blood count - Chronic cystitis - Chronic fatigue syndrome - Hypothyroidism - Hypothyroidism - Thrombocytopenia (HCC) PAST SURGICAL HISTORY Procedure Laterality Date - PAST SURGICAL HISTORY OF C section Social History Substance Use Topics - Smoking status: Never Smoker - Smokeless tobacco: Not on file - Alcohol use Not on file No family history on file. Current Outpatient Prescriptions: NETO THYROID 180 mg tablet TAKE ONE TABLET ONCE EVERY DAY No current facility-administered medications for this visit. ALLERGIES No Known Allergies REVIEW OF SYSTEMS GENERAL: No weight loss, malaise or fevers., SEE HPI HEENT: Negative for frequent or significant headaches, No changes in hearing or vision, no nose bleeds or other nasal problems NECK: Negative for lumps, goiter, pain and significant neck swelling RESPIRATORY: Negative for cough, wheezing or shortness of breath. CARDIOVASCULAR: Negative for chest pain, leg swelling or palpitations. GI: Negative for abdominal discomfort, blood in stools or black stools or change in bowel habits MUSCULOSKELETAL: Negative for joint pain or swelling, back pain or muscle pain. SKIN: Negative for lesions, rash, and itching. PSYCH: Negative for sleep disturbance, mood disorder and recent psychosocial stressors. HEMATOLOGY/LYMPHOLOGY: Negative for prolonged bleeding, bruising easily or swollen nodes. NEURO: No history of headaches, syncope, paralysis, seizures or tremors All other reviewed and negative other than HPI. PHYSICAL EXAM: BP 155/87 Pulse 85 Temp 36.6 ?C (97.8 ?F) (Oral) Resp 18 Ht 156.2 cm (5' 1.5) Wt 92.9 kg (204 lb 12.8 oz) SpO2 98% BMI 38.07 kg/m? General Appearance: alert and oriented, appearing in no acute distress Skin: skin color, texture, turgor normal, no suspicious rashes or lesions. Head: normal. Eyes: Anicteric sclera. Pupils are equally round. Extraocular movements are intact. . Ears: external ears normal Neck: Supple, no adenopathy; thyroid symmetric, normal size, no bruits. Back:no pain with ambulation Lungs: good air exchange overall Heart: RRR Abdomen: No obvious evidence of rebound tenderness or guarding Extremities: Extremities normal. No deformities, edema, or skin discoloration. Good capillary refill.. Musculoskeletal: Spine range of motion normal. Muscular strength intact. Peripheral Pulses: Normal. Neurologic: Gait normal. No gross cerebellar defects Psychiatric: the patient has an appropriate affect Hemoglobin (g/dL) Date Value 12/15/2017 14.0 Hematocrit (%) Date Value 12/15/2017 40.9 WBC (k/uL) Date Value 12/15/2017 11.43 Platelet Count (k/uL) Date Value 12/15/2017 253 ASSESSMENT/PLAN: 1. Other pancytopenia (HCC) - ICD9: 284.19, ICD10: D61.818 I strongly suspect lab error. For her counts to be so severely low and to go to essentially normal in 6 days I suspect this was more lab error than anything. Nevertheless, I will recommend we check some basic tests today. We'll see her back in 2 weeks. Her pancytopenia has resolved on our lab check today. Concepcion Diaz MD CNOVSP Observed: 12/15/2017 Status: COMPLETED Source: [place] 3:30 PM [facility] REPOSITORY Visit (SP) Office ([place]) RAYA GOOD I ([id number]) 1975 F Date Time Provider Department 12/15/17 3:30 PM CONCEPCION DIAZ During your visit today, we recorded the following information about you: Temperature Pulse Respiration Blood pressure 97.8 degrees 85/minute 18/minute 155/87 Weight Height 92.9 kg 1.562 m Concepcion Diaz MD 12/15/2017 3:59 PM Signed HPI Raya Good is a 42 year old female who presents consultation December 15, 2017 with severe pancytopenia. She had some edema and swelling in her fingers and toes. This has resolved. On December 09 her white count 1.6 hemoglobin 4.7 platelet count of 18. MCV was normal. She was typed and crossed, given 2 units of packed red cells at [facility]. Liver function tests and chemistries were normal. Today in consultation her white blood cell count is a little bit elevated 11 but her hemoglobin and platelets are otherwise normal. She is not pale or peeked and did not have any symptoms or signs of dyspnea on exertion, chest pain with exertion, etc. her color has not changed. PAST MEDICAL HISTORY Diagnosis Date - Abnormal complete blood count - Chronic cystitis - Chronic fatigue syndrome - Hypothyroidism - Hypothyroidism - Thrombocytopenia (HCC) PAST SURGICAL HISTORY Procedure Laterality Date - PAST SURGICAL HISTORY OF C section Social History Substance Use Topics - Smoking status: Never Smoker - Smokeless tobacco: Not on file - Alcohol use Not on file No family history on file. Current Outpatient Prescriptions: ARMOUR THYROID 180 mg tablet TAKE ONE TABLET ONCE EVERY DAY No current facility-administered medications for this visit. ALLERGIES No Known Allergies REVIEW OF SYSTEMS GENERAL: No weight loss, malaise or fevers., SEE HPI HEENT: Negative for frequent or significant headaches, No changes in hearing or vision, no nose bleeds or other nasal problems NECK: Negative for lumps, goiter, pain and significant neck swelling RESPIRATORY: Negative for cough, wheezing or shortness of breath. CARDIOVASCULAR: Negative for chest pain, leg swelling or palpitations. GI: Negative for abdominal discomfort, blood in stools or black stools or change in bowel habits MUSCULOSKELETAL: Negative for joint pain or swelling, back pain or muscle pain. SKIN: Negative for lesions, rash, and itching. PSYCH: Negative for sleep disturbance, mood disorder and recent psychosocial stressors. HEMATOLOGY/LYMPHOLOGY: Negative for prolonged bleeding, bruising easily or swollen nodes. NEURO: No history of headaches, syncope, paralysis, seizures or tremors All other reviewed and negative other than HPI. PHYSICAL EXAM: BP 155/87 Pulse 85 Temp 36.6 ?C (97.8 ?F) (Oral) Resp 18 Ht 156.2 cm (5' 1.5) Wt 92.9 kg (204 lb 12.8 oz) SpO2 98% BMI 38.07 kg/m? General Appearance: alert and oriented, appearing in no acute distress Skin: skin color, texture, turgor normal, no suspicious rashes or lesions. Head: normal. Eyes: Anicteric sclera. Pupils are equally round. Extraocular movements are intact. . Ears: external ears normal Neck: Supple, no adenopathy; thyroid symmetric, normal size, no bruits. Back:no pain with ambulation Lungs: good air exchange overall Heart: RRR Abdomen: No obvious evidence of rebound tenderness or guarding Extremities: Extremities normal. No deformities, edema, or skin discoloration. Good capillary refill.. Musculoskeletal: Spine range of motion normal. Muscular strength intact. Peripheral Pulses: Normal. Neurologic: Gait normal. No gross cerebellar defects Psychiatric: the patient has an appropriate affect Hemoglobin (g/dL) Date Value 12/15/2017 14.0 Hematocrit (%) Date Value 12/15/2017 40.9 WBC (k/uL) Date Value 12/15/2017 11.43 Platelet Count (k/uL) Date Value 12/15/2017 253 ASSESSMENT/PLAN: 1. Other pancytopenia (HCC) - ICD9: 284.19, ICD10: D61.818 I strongly suspect lab error. For her counts to be so severely low and to go to essentially normal in 6 days I suspect this was more lab error than anything. Nevertheless, I will recommend we check some basic tests today. We'll see her back in 2 weeks. Her pancytopenia has resolved on our lab check today. Concepcion Diaz MD Referring Provider: SCOTT KURTZ [[id number]] Allergies As of Date: 12/15/2017 (No Known Allergies) Date Reviewed: 01/30/2010 Reviewed by: Hoda [address] - Reviewed Reason for Visit: leukocytosis [Other] Cmt: New patient consult Thrombocytopenia [603] Reason For Visit History Recorded Primary Visit Diagnosis:Other pancytopenia (HCC) [D61.818] Disposition: Return in about 2 weeks (around 12/29/2017). Follow-up and Disposition History Recorded Prescriptions as of 12/15/2017 Sig: ARMOUR THYROID 180 MG TABLET TAKE ONE TABLET ONCE EVERY DAY Problem List As Of Date 12/15/2017 Noted Resolved Other pancytopenia (HCC) [D61.818] INVALID FOR* Encounter Status:Closed by CONCEPCION DIAZ MD on 12/15/17 SED RATE WESTERGREN Collected: 12/15/2017 Status: F Source: [place] 3:21 PM [facility] REPOSITORY TYPE CODE TESTS RESULT OUT OF REFERENCE UNITS RANGE LAB WSR 0-20 mm/hr Sed Rate Westergren 13 Performed By: #### WSR, LD6, IRON, BMP, HFP, FERR, B12, SERFOL, SEPG, MMA #### [facility] [employer] [address] [place] [id number] LD Collected: 12/15/2017 Status: F Source: [facility] 3:21 PM [facility] REPOSITORY TYPE CODE TESTS RESULT OUT OF RANGE REFERENCE UNITS LAB LD 135-214 U/L LD 159 Performed By: #### WSR, LD6, IRON, BMP, HFP, FERR, B12, SERFOL, SEPG, MMA #### [facility] [employer] [address] [place] [address] IRON AND TIBC Collected: 12/15/2017 Status: F Source: [place] 3:21 PM [facility] REPOSITORY TYPE CODE TESTS RESULT OUT OF REFERENCE UNITS RANGE LAB IRN 41-186 ug/dL Iron 65 LAB TIBC 232-386 ug/dL TIBC 291 LAB SAT 15-57 % Transferrin Saturatn 22 Performed By: #### WSR, LD6, IRON, BMP, HFP, FERR, B12, SERFOL, SEPG, MMA #### [facility] [employer] [address] [place] [address] BASIC METABOLIC PANL Collected: 12/15/2017 Status: F Source: [place] 3:21 PM [facility] REPOSITORY TYPE CODE TESTS RESULT OUT OF REFERENCE UNITS RANGE LAB GLU 74-99 mg/dL Glucose 81 Result Comment: The [place] [employer] (ADA) provides guidance for cutoff values for fasting glucose and random glucose. The ADA defines fasting as no caloric intake for at least 8 hours. Fas ting plasma glucose results between 100 to 125 mg/dL indicate increased risk for diabetes (prediabetes). Fasting plasma glucose results greater than or equal to 126 mg/dL meet the criteria for diagnosis of diabetes. In the absence of unequivocal hyperglycemia, results should be confirmed by repeat testing. In a patient with classic symptoms of hyperglycemia or hyperglycemic crisis, random plasma glucose results greater than or equal to 200 mg/dL meet the criteria for diagnosis of diabetes. Reference: Standards of Medical Care in Diabetes 2016, [place] [employer]. Diabetes Care. 2016.39(Suppl 1). LAB BUN 7-21 mg/dL BUN 11 LAB CRET 0.58-0.96 mg/dL Creatinine 0.61 LAB NA 136-144 mmol/L Sodium 138 LAB K 3.7-5.1 mmol/L Potassium 4.2 LAB CL 97-105 mmol/L Chloride 99 LAB CO2 22-30 mmol/L CO2 29 LAB AGAP 9-18 mmol/L Anion Gap 10 LAB CA 8.5-10.2 mg/dL Calcium, Total 8.6 LAB GFRAA eGFR- Amer. >60 LAB GFRNAA . eGFR-All Other Races >60 Result Comment: eGFR (Estimated GFR) Units of measure: mL/min/1.73 meters squared eGFR is derived from the reexpressed MDRD Study equation using the following parameters: serum creatinine, age, gender and race. The creatinine assay has been calibrated to be traceable to IDMS. An eGFR <60 mL/min/1.73m2 for >3 months is consistent with chronic kidney disease. Refer to KDOQI guidelines for clinical interpretation. In patients with unstable renal function, e.g. those with acute kidney injury, the eGFR may not accurately reflect actual GFR. Performed By: #### WSR, LD6, IRON, BMP, HFP, FERR, B12, SERFOL, SEPG, MMA #### [facility] [address] [place], [place] [address] HEPATIC FUNCTN PANEL Collected: 12/15/2017 Status: F Source: [place] 3:21 PM [facility] REPOSITORY TYPE CODE TESTS RESULT OUT OF REFERENCE UNITS RANGE LAB ALB 3.9-4.9 g/dL Albumin 4.3 LAB TBIL 0.2-1.3 mg/dL Bilirubin, Total 0.2 LAB CBIL <0.2 mg/dL Bilirubin,Conjuga <0.2 armin LAB ALKP 32-117 U/L Alkaline Phosphatase 55 LAB AST 13-35 U/L AST 13 LAB ALT 7-38 U/L ALT 13 LAB TP 6.3-8.0 g/dL Protein, Total 7.5 Performed By: #### WSR, LD6, IRON, BMP, HFP, FERR, B12, SERFOL, SEPG, MMA #### [facility] [employer] [address] [place] [address] FERRITIN Collected: 12/15/2017 Status: F Source: [place] 3:21 PM [facility] REPOSITORY TYPE CODE TESTS RESULT OUT OF REFERENCE UNITS RANGE LAB FERR 14.7-205.1 ng/mL Ferritin 57.3 Performed By: #### WSR, LD6, IRON, BMP, HFP, FERR, B12, SERFOL, SEPG, MMA #### [place] [address] VITAMIN B12 Collected: 12/15/2017 Status: F Source: [place] 3:21 PM [facility] REPOSITORY TYPE CODE TESTS RESULT OUT OF REFERENCE UNITS RANGE LAB B12 232-1245 pg/mL Vitamin B12 449 Performed By: #### WSR, LD6, IRON, BMP, HFP, FERR, B12, SERFOL, SEPG, MMA #### [place] [address] FOLATE, SERUM Collected: 12/15/2017 Status: F Source: [place] 3:21 PM [facility] REPOSITORY TYPE CODE TESTS RESULT OUT OF REFERENCE UNITS RANGE LAB SERFOL >4.7 ng/mL Folate, 14.9 Serum Performed By: #### WSR, LD6, IRON, BMP, HFP, FERR, B12, SERFOL, SEPG, MMA #### [place] [address] PROTEIN ELECTROPHOR. Collected: 12/15/2017 Status: F Source: [place] 3:21 PM [facility] REPOSITORY TYPE CODE TESTS RESULT OUT OF REFERENCE UNITS RANGE LAB TPSPE 6.0-8.4 g/dL Total Protein, SPE 7.3 LAB ALBE 3.37-4.23 gm/dL Albumin 3.71 LAB A1GL 0.18-0.31 gm/dL Alpha 1 Globulin 0.26 LAB A2GL 0.52-0.97 gm/dL Alpha 2 Globulin 0.82 LAB BEGL 0.84-1.36 gm/dL Beta Globulin 1.09 LAB GAGL 0.70-1.44 gm/dL Gamma Globulin 1.43 LAB SPEINT Interpretation SEE COMMENT Result Comment: No definitive M protein is identified on protein electrophoresis. LAB LOC M Protein N/A Location LAB GPERDL 0.00 gm/dL M Edwin 0.00 Concentratn LAB SPESTF SPE Staff Review Reviewed [place] De[place] Pearce [place] ([id number]) Performed By: #### WSR, LD6, IRON, BMP, HFP, FERR, B12, SERFOL, SEPG, MMA #### [facility] [employer] [address], [place] [address] METHYLMALONIC ACID Collected: 12/15/2017 Status: F Source: [place] 3:21 PM [facility] REPOSITORY TYPE CODE TESTS RESULT OUT OF REFERENCE UNITS RANGE LAB MMA 79-376 nmol/L Methylmalonic Acid 188 Result Comment: This test was developed and its performance characteristics determined by [facility]'s [facility] [place] ([facility] It has not been cleared or approved by the FDA. [facility] is regulated under CLIA as qualified to perform high-complexity testing. This test is used for clinical purposes. It should not be regarded as investigational or for research. Performed By: #### WSR, LD6, IRON, BMP, HFP, FERR, B12, SERFOL, SEPG, MMA #### [facility] [employer] [address] [place], [place] [address] REMOTE ABS GRAN + Collected: 12/15/2017 Status: F Source: [place] CBC (FOR [facility] USE 3:20 PM [facility] ONLY) REPOSITORY TYPE CODE TESTS RESULT OUT OF REFERENCE UNITS RANGE LAB WBC 3.70-11.00 k/uL WBC High 11.43 LAB RBC 3.90-5.20 m/uL RBC 4.46 LAB HGB 11.5-15.5 g/dL Hemoglobin 14.0 LAB HCT 36.0-46.0 % Hematocrit 40.9 LAB MCV 80.0-100.0 fL MCV 91.7 LAB MCH 26.0-34.0 pG MCH 31.4 LAB MCHC 30.5-36.0 g/dL MCHC 34.2 LAB RDWCV 11.5-15.0 % RDW-CV 12.7 LAB PLTCT 150-400 k/uL Platelet Count 253 LAB MPV 9.0-12.7 fL MPV 9.8 LAB ABGRAN 1.45-7.50 k/uL Absol High Gran Count 7.84 CBC Collected: 12/14/2017 Status: C Source: [facility] 11:42 AM [facility] REPOSITORY TYPE CODE TESTS RESULT OUT OF REFERENCE UNITS RANGE LAB WBC(LOINC) 4.60-10.80 10 3/mcL WBC 9.40 LAB RBCCT(LOINC 4.20-5.40 10 6/mcL ) RBC 4.71 LAB HGB(LOINC) 12.0-16.0 G/dL Hgb 14.3 LAB HCT(LOINC) 37.0-47.0 % Hct 42.4 LAB MCV(LOINC) 80.0-94.0 fL MCV 90.0 LAB MCH(LOINC) 27.0-31.2 pg MCH 30.3 LAB MCHC(LOINC) 33.0-37.0 G/dL MCHC 33.6 LAB RDW(LOINC) 11.5-14.5 % RDW 13.4 LAB PLT(LOINC) 130-400 10 3/mcL Platelet 240 Result Comment: Due to Platelete clump. Recollect specimen. Called result @[phone] LAB MPV(LOINC) 7.4-10.4 fL MPV 8.1 Performed By: #### THOMAS, NANCY, ANEU, FE #### [employer] [address] [address] .AUTO DIFF Collected: 12/14/2017 Status: F Source: [facility] 11:42 AM [facility] REPOSITORY TYPE CODE TESTS RESULT OUT OF REFERENCE UNITS RANGE LAB JOSE GUADALUPE(LOINC) 37.0-80.0 % Neutrophil % 62.2 LAB LYM(LOINC) 10.0-50.0 % Lymphocyte % 30.3 LAB MON(LOINC) 1.7-13.0 % Monocyte % 6.0 LAB EO(LOINC) 0.0-7.0 % Eosinophil % 0.6 LAB BAS(LOINC) 0.0-2.5 % Basophil % 0.9 LAB ABLYM(LOIN 0.77-3.85 10 3/mcL C) Lymphocyte, 2.90 Absolute LAB JOSH(LOINC 0.15-1.00 10 3/mcL ) Monocyte, 0.60 Absolute LAB AEOS(LOINC 0.00-0.40 10 3/mcL ) Eosinophil, 0.10 Absolute LAB ABAS(LOINC 0.00-0.19 10 3/mcL ) Basophil, 0.10 Absolute Performed By: #### CBC, ADIFF, ANEU, FE #### [place] [address] .NEUABS Collected: 12/14/2017 Status: F Source: [facility] 11:42 [facility] REPOSITORY TYPE CODE TESTS RESULT OUT OF REFERENCE UNITS RANGE LAB ANEU(LOINC) 2.85-6.16 10 3/mcL Neutrophil, 5.90 Absolute Performed By: #### CBC ADIFF ANEU, FE #### [place] [address] FE Collected: 12/14/2017 Status: F Source: [facility] 11:42 [facility] REPOSITORY TYPE CODE TESTS RESULT OUT OF RANGE REFERENCE UNITS LAB FE(LOINC) 65-170 mcg/dL Iron 90 Performed By: #### CBC, ADIFF, ANEU, FE #### [place] [address] UA Collected: 12/14/2017 Status: F Source: [facility] 11:42 [facility] REPOSITORY TYPE CODE TESTS RESULT OUT OF REFERENCE UNITS RANGE LAB SPCUA(LOIN C) UA Specimen Type Not Given LAB CLRUA(LOIN C) UA Color YELLOW LAB APPUA(LOIN C) UA Appear SL CLOUDY LAB SGUA(LOINC ) UA Spec Grav 1.025 LAB GLUA(LOINC mg/dL ) UA Glucose NEGATIVE LAB BILUA(LOIN C) UA Bili NEGATIVE LAB KETUA(LOIN mg/dL C) UA Ketones NEGATIVE LAB BLDUA(LOIN C) UA Blood NEGATIVE LAB PHUA(LOINC ) UA pH 7.0 LAB PROUA(LOIN Negative mg/dL C) UA Protein 30 LAB UROUA(LOIN E.U./dL C) UA Urobilinogen 0.2 LAB NITUA(LOIN C) UA Nitrite NEGATIVE LAB LEUUA(LOIN C) UA Leuk Est NEGATIVE Performed By: #### UA, UAMICAO #### [facility] [place] [address] [place], [place] [address] .URINALYSIS MICROSCOPIC Collected: 12/14/2017 Status: F Source: [place] ([place]) 11:42 AM [facility] REPOSITORY TYPE CODE TESTS RESULT OUT OF RANGE REFERENCE UNITS LAB WBCUA(LOIN None Seen /hpf C) Unknown UA WBC 0-5 LAB RBCUA(LOIN None Seen /hpf C) Unknown UA RBC 0-5 LAB EPIUA(LOIN None Seen /hpf C) Unknown UA Squam Epithelial 0-5 Performed By: #### UA, UAMICAO #### [employer] [address] [address] EMERGENCY DEPARTMENT Observed: 12/10/2017 Status: F Source: [place] SUMMARY 4:44 PM [facility] REPOSITORY [facility] Medical Records Department [address] [place] [address] Emergency Department Summary 12/10/17 1617 MR#: [id number] Acct: [id number] Name: RAYA GOOD I Rep #: [id number] : 1975 42 From: Sanjuana Branch DO PCP: SCOTT KURTZ Status: REG ER ADDENDUM by Esthela Chavarria MD on 12/10/17 at 1644 Patient was signed out to me pending repeat platelet count. Second platelet count requested by Dr. Umanzor is 207,000. Patient be updated with this finding and advised to follow with primary care physician. Date Esthela Chavarria MD cc: SCOTT KURTZ * Signed - ER Visit Summary Date of Service: 12/10/17 Chief Complaint: [Abnormal labs] History of Present Illness: The patient is a 42 F [presents the emergency department with complaint of abnormal labs and was told that she needed a blood transfusion. Patient states that she had blood work done at her primary care physician's office 2 days ago and today she was called and told that she may have lymphoma and that she needed a blood transfusion. Patient states that she had several urinary tract infections over last several months and is been having a lot of fatigue so basic labs were done yesterday. Patient denies urinary symptoms currently. Patient denies any fevers currently. She denies any chest pain or shortness of breath. Patient's last menstrual period was 5 days ago and it was very light. Patient denies any rectal bleeding. Blood work sent with patient showed a hemoglobin of 4.7 along with a platelet count of 18,000 and a white blood cell count of 1.6.] Physical Examination: [HEENT-PERRLA, FAMILIAMI. Cranial nerves II through XII grossly intact. TMs clear. Mucous membranes moist. No adenopathy. Cardiovascular-regular rate and rhythm without murmur or ectopy Lungs-clear to auscultation, chest wall stable without crepitus or subcu emphysema Abdomen-normoactive bowel sounds, soft, nontender, no rebound or rigidity, no peritoneal signs. Extremities-intact 4, normal range of motion, normal pulses, atraumatic] Test Results: [CBC with differential obtained here showed a white count of 7.8, hemoglobin 13.7, hematocrit 46, platelets 83. Chemistries unremarkable. BUN was 14 and creatinine 0.63. Urinalysis was normal. Orthostatic vital signs were negative.] Emergency Department Course and Treatment: [I discussed case with patient's primary care physician who was able to send old lab values the patient had had drawn prior to the labs done on 12/09/2017. On prior CBCs one dated from September 2017 it was noted that her CBC was normal. Patient also had a CBC from 2016 and October which also was normal. I did discuss case with Dr. Segura is on-call for oncology who asked that I send off a repeat platelet count and a sodium citrate tube and if normal then the patient did not need to follow-up with normal their office however if the platelet count is still low patient to follow- up as an outpatient with her office for the thrombocytopenia. At this point is felt that either a lab error occurred on the blood work from 2 days ago versus possibly accidental exchange of patient lab values. Patient clinically does not appear ill.] Treatment Plan: [Follow-up with primary care physician and Dr. Segura] Disposition: [Discharged home in stable condition] Impression: [Feared complaint of abnormal labs] This note was generated with [employer] dictation software. It may contain incorrect words, spelling, and punctuation that were not noted in review of the chart prior to signing ED Disposition - Plan for ED Patient: Chief Complaint: General Illness Referrals: Scott Kurtz [Primary Care Provider] - What to do if you have Problems For any increased pain, shortness of breath, bleeding, nausea or vomiting, chest pain, or any unexpected problems, contact your Primary Care Provider. Call [facility] ([phone]) or report to the closest Emergency Room. Call 911 if necessary. 12/10/17 162 <Electronically signed by Sanjuana Branch DO> Date Sanjuana Branch DO Cosigner Signature (If Indicated): Date CC: SCOTT KURTZ DISCHARGE INSTRUCTION Observed: 12/10/2017 Status: F Source: [place] 4:24 PM [facility] REPOSITORY [facility] Medical Records Department [address] [place] [address] Discharge Instruction 12/10/173 MR#: [id number] Acct: [id number] Name: RAYA GOOD I Rep #: [id number] : 1975 42 From: Sanjuana Branch DO PCP: SCOTT KURTZ Status: REG ER ED Disposition - Plan for ED Patient: Chief Complaint: General Illness Referrals: Scott Kurtz [Primary Care Provider] - 3-5 Days Linnea Segura MD [STAFF PHYSICIAN] - As Needed Additional Instructions: Concern for abnormal labs may have been to Laboratory error or accidental mixing of patient results. What to do if you have Problems For any increased pain, shortness of breath, bleeding, nausea or vomiting, chest pain, or any unexpected problems, contact your Primary Care Provider. Call [facility] ([phone]) or report to the closest Emergency Room. Call 911 if necessary. 12/10/17 1624 <Electronically signed by Sanjuana Branch DO> Date Sanjuana Branch DO Cosigner Signature (If Indicated): Date CC: SCOTT KURTZ URINALYSIS, COMPLETE Collected: 12/10/2017 Status: F Source: [place] 3:15 PM [facility] REPOSITORY Order Comment: Order Date: 12/10/17 Has pt arrived? Y How was Urine Obtained? PHOTONICS ENGINEERING TECHNICIAN TO SPECIFY TYPE CODE TESTS RESULT OUT OF RANGE REFERENCE UNITS LAB L400.3000 Yellow COLOR Normal Yellow LAB L400.3050 Clear Normal CLARITY Sl. Cloudy LAB L400.3200 Normal mg/dl Normal GLUCOSE, UR Normal LAB L400.3300 Negative mg/dL Normal BILIRUBIN URINE Negative LAB L400.3400 Negative mg/dl Normal KETONE UR Negative LAB L400.3465 1.002-1.030 Normal SP.GR. DIPSTX 1.020 LAB L400.3550 5.0 - 8.0 pH UR Normal 6.0 LAB L400.3600 Negative mg/dl High PROT DIPSTX 100 LAB L400.3700 Normal mg/dl Normal UROBILI Normal LAB L400.3750 Negative Normal NITRITE UR Negative LAB L400.3780 Negative /ul High 25 OCCULT BLOOD-UR LAB L400.3800 Negative /ul LEUK Normal ESTERASE Negative LAB L400.4050 0-5 /hpf WBC 0 Normal SEEN LAB L400.4100 0-5 /hpf Normal RBC-UA 0-5 SEEN LAB L400.4150 5-10 /hpf SQUAM Normal EPI 0-5 SEEN LAB L400.4300 None Seen /hpf 0 Normal BACTERIA SEEN LAB L400.4350 <or=2+ /hpf 0 Normal MUCUS, URINE SEEN Performed By: #### L400.0001 #### [facility] [address] [facility] [place], [address] BASIC METABOLIC Collected: 12/10/2017 Status: F Source: [place] PROFILE (BMP) 2:04 PM [facility] REPOSITORY TYPE CODE TESTS RESULT OUT OF RANGE REFERENCE UNITS LAB L501.0100 74-106 mg/dL Normal GLU 89 Result Comment: Please note revised GLUCOSE reference range effective 2017. LAB L501.1000 7-18 mg/dL Normal BUN 14 LAB L501.1100 0.55-1.02 mg/dL Normal CREAT,SERUM 0.63 Result Comment: The validity of the calculated GFR AND GFRAA in patients over 70 years has not been determined. Clinical correlation is essential. LAB L501.1110 >60 mL/min Normal EST GFR 110 Result Comment: Non- GFR Calc LAB L501.1115 >60 mL/min Normal EST GFR - AA 133 Result Comment: GFR Calc LAB L501.1255 ml/min Normal Estimated CRCL 101.48 LAB L501.1300 10-20 RATIO High BUN/CRE 22.2 LAB L501.2200 8.5-10 mg/dL .1 CA Normal 8.8 LAB L501.5300 136-14 mmol/L 5 NA Normal 139 LAB L501.5600 3.5-5. mmol/L 1 K Normal 3.7 LAB L501.5900 98-107 mmol/L High CL 108 LAB L501.6100 21.0-3 mmol/L 2.0 CO2 Normal 24.0 LAB L501.6200 5-15 GAP Normal 7 Performed By: #### L500.2500 #### [facility] [address] [facility] [place], [address] TYPE AND SCREEN Collected: 12/10/2017 Status: F Source: [place] 2:04 PM [facility] REPOSITORY Order Comment: Reason for Type AND Screen/Red Cells: ANEMIA TYPE CODE TESTS RESULT OUT OF RANGE REFERENCE UNITS LAB B10.0800 A Normal BLOOD TYPE GEL POSITIVE LAB B100.4000 Normal Antibody NEGATIVE Screen Performed By: #### B101.7450 #### [facility] [address] [facility] [place], [place], [id number] PLATELET COUNT Collected: 12/10/2017 Status: F Source: [place] 2:04 PM [facility] REPOSITORY Order Comment: RAN ON NA CITRATE TUBE PER DR SEGURA TYPE CODE TESTS RESULT OUT OF RANGE REFERENCE UNITS LAB L100.1900 150-450 K/mm3 Normal PLT 207 Performed By: #### L100.1900 #### [facility] [address] [place], [address] CBC W/DIFF, AUTOMATED Collected: 12/10/2017 Status: F Source: [place] 1:58 PM [facility] REPOSITORY TYPE CODE TESTS RESULT OUT OF RANGE REFERENCE UNITS LAB L100.1000 4.4-11.0 K/mm3 Normal WBC 7.8 LAB L100.1200 4.2-5.4 M/mm3 Normal RBC 4.61 LAB L100.1300 12.0-15.0 g/dl Normal HGB 13.7 LAB L100.1400 37-47 % Normal HCT 41.7 LAB L100.1500 81-99 fL Normal MCV 90.5 LAB L100.1600 27.0-32.0 pg Normal MCH 29.7 LAB L100.1700 32-36 g/gl Normal MCHC 32.9 LAB L100.1810 11.6-14.6 % Normal RDW CV 12.9 LAB L100.1820 35.1-43.9 fl Normal RDW SD 42.6 LAB L100.1900 150-450 K/mm3 Low PLT 83 LAB L100.2000 6.2-12.0 fl Normal MPV 11.0 LAB L100.2100 47-70 % Normal NEUT% 64.6 LAB L100.2200 19-41 % Normal LY% 29.3 LAB L100.2300 0-10 % Normal MONO% 5.4 LAB L100.2400 0-5 % Normal EO% 0.4 LAB L100.2500 0-1 % Normal BASO% 0.3 LAB L100.2550 0.0-0.9 % Normal IM GRAN % 0.000 Result Comment: IG% - Immature Granulocytes (promyelocytes, myelocytes and metamyelocytes) > 1% indicates that a LEFT SHIFT is Present. LAB L100.2620 2.0-7.7 X10 3/uL Normal Absolute Neut 5.0 LAB L100.2720 0.83-4.51 X10 3/ul Normal Absolute Lymph 2.28 Performed By: #### L100.0100 #### [facility] [address] [place], [address] ABDOMEN SINGLE VIEW Observed: 11/29/2017 Status: F Source: [place] 10:29 AM [facility] REPOSITORY [facility] Imaging Services [address] [place] [address] Abdomen Single View MR#: [id number] Acct: [id number] Name: RAYA GOOD I Rep #: [id number] : 1975 F 42 From: Michael Alejandro MD PCP: Skip Sahu MD Status: REG CLI Study: Abdomen Single View Date of Exam: 11/29/17 Exam# [id number] Ordering Dr: Scott Kurtz STUDY: X-RAY - ABDOMEN/PELVIS REASON FOR EXAM: Female, 42 years old. Hematuria times several months TECHNIQUE: Two AP supine views of the abdomen and pelvis. COMPARISON: None. FINDINGS: The lung bases are not included in the syazg-af-jczb of the study. There is an unremarkable bowel gas pattern. There is no demonstrated free abdominal air. The visualized liver, spleen and kidneys are grossly normal in size and morphology. Normal soft tissue structures. Normal visualized osseous structures. RAD/Abdomen Single View IMPRESSION: Normal x-ray examination of the abdomen and pelvis. Electronically Signed: Michael Alejandro MD at 23:49 EDT , Service support , CC: SCOTT KURTZ; Skip Sahu MD Hand Packer: Signed KIDNEY AND BLADDER Observed: 11/29/2017 Status: F Source: [place] 9:44 AM [facility] REPOSITORY [facility] Imaging Services [address] [place] [address] Kidney and Bladder MR#: [id number] Acct: [id number] Name: RAYA GOOD I Rep #: [id number] : 1975 F 42 From: Michael Alejandro MD PCP: Skip Sahu MD Status: REG CLI Study: Kidney and Bladder Date of Exam: 11/29/17 Exam# [id number] Ordering Dr: Scott Kurtz STUDY: RENAL ULTRASOUND - COMPLETE REASON FOR EXAM: Female, 42 years old. Hematuria TECHNIQUE: Ultrasound evaluation of the kidneys was performed with real-time and static sneed-scale imaging. COMPARISON: None. FINDINGS: The study is technically limited secondary to patient obesity. RIGHT KIDNEY: Normal location of the right kidney, which is normal in size. The right kidney measures 13.3 x 4.5 x 5.9 cm. There is a normal cortex of the right kidney. The renal cortex measures 1.9 cm. There is no right renal mass or cyst. There are no right renal calculi. There is no right hydronephrosis. DISTAL RIGHT URETER: There is non-visualization of the distal right ureter. There is no demonstrated right ureterovesical junction calculus. There is no demonstrated right ureteral jet. LEFT KIDNEY: Normal location of the left kidney, which is normal in size. The left kidney measures 12.1 x 4.6 x 4.4 cm. There is a normal cortex of the left kidney. The renal cortex measures 1.3 cm. There is no left renal mass or cyst. There are no left renal calculi. There is no left hydronephrosis. DISTAL LEFT URETER: There is non-visualization of the distal left ureter. There is no demonstrated left ureterovesical junction calculus. There is a visualized left ureteral jet. BLADDER: The distended urinary bladder has a volume of 54 ml. There is a normal wall thickness of the distended urinary bladder. There is no demonstrated mass within the urinary bladder. There are no demonstrated bladder calculi. US/Kidney and Bladder IMPRESSION: Technically limited study secondary to patient obesity. The kidneys appear within normal limits. The left ureteral jet was identified. The right ureteral jet was not seen. The bladder is unremarkable. Electronically Signed: Michael Alejandro MD at 23:48 EDT , Service support , CC: SCOTT KURTZ; Skip Sahu MD Hand Packer: Signed URINALYSIS, COMPLETE Collected: 11/24/2017 Status: F Source: [place] 2:48 PM [facility] REPOSITORY Order Comment: How was Urine Obtained? CLEAN CATCH TYPE CODE TESTS RESULT OUT OF RANGE REFERENCE UNITS LAB L400.3000 Yellow COLOR Normal Yellow LAB L400.3050 Clear Normal CLARITY Sl. Cloudy LAB L400.3200 Normal mg/dl Normal GLUCOSE, UR Normal LAB L400.3300 Negative mg/dL Normal BILIRUBIN URINE Negative LAB L400.3400 Negative mg/dl Normal KETONE UR Negative LAB L400.3465 1.002-1.030 Normal SP.GR. DIPSTX 1.025 LAB L400.3550 5.0 - 8.0 pH UR Normal 5.0 LAB L400.3600 Negative mg/dl High PROT DIPSTX 100 LAB L400.3700 Normal mg/dl Normal UROBILI Normal LAB L400.3750 Negative Normal NITRITE UR Negative LAB L400.3780 Negative /ul High 25 OCCULT BLOOD-UR LAB L400.3800 Negative /ul High LEUK 25 ESTERASE LAB L400.4050 0-5 /hpf WBC Normal 0-5 SEEN LAB L400.4100 0-5 /hpf 0 Normal RBC-UA SEEN LAB L400.4150 5-10 /hpf SQUAM Normal EPI 5-10 SEEN LAB L400.4300 None Seen /hpf Normal BACTERIA RARE LAB L400.4350 <or=2+ /hpf 1+ Normal MUCUS, URINE Performed By: #### L400.0001 #### [facility] [address], [address] Observed: 11/24/2017 Status: F Source: [place] CULTURE, URINE 2:48 PM [facility] REPOSITORY Urine Culture Below infection level. ORGANISM 1: Mixed Gram Positive Organisms [place] Count 1000-10,000 MIX CULTURE Mixed contaminants. Submit a new specimen if indicated. Performed By: #### M100.0650 #### [facility] [place], [address] PAP I-G W/RFX HRHPV Collected: 10/26/2017 Status: F Source: [place] 2:30 PM [facility] REPOSITORY Order Comment: CYTOLOGY INFORMATION: - CLINICAL INFORMATION: - DATE LMP/MENOPAUSE: LMP not given - COLLECTION VIAL: Thin Prep Vial - RESEARCH GROUP DIRECTOR SOURCE: CERVICAL/ENDOCERVICAL - COLLECTION TECHNIQUE: BRUSH/SPATULA Specimen Comment: [id number] Specimen Comment: No. of containers..01 ThinPrep Vial TYPE CODE TESTS RESULT OUT OF RANGE REFERENCE UNITS LAB L7400.0800 . Normal DIAGN Comment Result Comment: NEGATIVE FOR INTRAEPITHELIAL LESION AND MALIGNANCY. LAB L7400.0900 . Normal ADEQ Comment Result Comment: Satisfactory for evaluation. Endocervical and/or squamous metaplastic cells (endocervical component) are present. LAB L7400.1400 . Normal PERFORM Comment Result Comment: Demetrice Soares, Nonprofit Fundraiser (ASCP) LAB L7400.2575 . Normal TEST METHOD Comment Result Comment: This liquid based ThinPrep(R) pap test was screened with the use of an image guided system. LAB L7400.2600 . Normal . COMM LAB L7400.2700 . Normal PAPSMR Comment Result Comment: The Pap smear is a screening test designed to aid in the detection of premalignant and malignant conditions of the uterine cervix. It is not a diagnostic procedure and should not be used as the sole means of detecting cervical cancer. Both false-positive and false-negative reports do occur. LAB L7400.2800 . Normal HPV RFLX Comment Result Comment: The HPV DNA reflex criteria were not met with this specimen result therefore, no HPV testing was performed. Performed at: [facility] Lab[facility] [id number] Practice Representative: Lisa Mabry MD, Phone: [phone] Performed By: #### L7400.0350 #### [facility] (refer to report for specific site) refer to report for address and phone number ALLERGIES ALLERGIES DATE TYPE / CODE NAME / CODE REACTION SEVERITY SOURCE 06/24/2018 Drug amitriptyline/F0 Unknown Unknown [facility]416 [id number](RXNORM) [facility] 911109(SNOM Repository ED CT) 06/24/2018 Drug liothyronine/F00 Unknown Unknown [facility]/734 [id number](RXNORM) [facility] 176878(SNOM Repository ED CT) 12/10/2017 Drug No Known Unknown [facility]/416 Allergies/C43441 Hospital 338468(SNOM 0388(RXNORM) Repository ED CT) Drug NO KNOWN [facility] Class/75642 ALLERGIES Main [place] 1003(SNOMED Repository CT) ENCOUNTERS ENCOUNTERS ADMIT/DISCHARGE ACCOUNT NUMBER ADMITTING ENCOUNTER LOCATION SOURCE CLASS 06/24/2018 [id number] [facility] ding:LAB Repository 06/24/2018/06/24/20 [id number] [facility]/24/2018 [id number] Ambulatory BMSBuilding: Regino [facility] Repository 06/14/2018 [id number] Ambulatory [facility] ding:LAB Repository 06/08/2018 [id number] Ambulatory [facility] ding:LAB.FUT Repository URE 04/22/2018 [id number] [facility] ding:LAB.FUT Repository URE 04/12/2018 [id number] [facility] ding:LAB Repository 03/24/2018 [id number] Ambulatory [facility] ding:LAB.FUT Repository URE 03/22/2018 [id number] Ambulatory [facility] ding:LAB.FUT Repository URE 01/24/2018 [id number] Ambulatory [facility] ding:LAB.FUT Repository URE 01/17/2018 [id number] [facility] ding:WOBLAB Repository 12/29/2017/12/31/19 [id number] Ambulatory [address] [place] Repository 12/29/2017/12/30/19 [id number] Ambulatory [address] Repository 12/15/2017/12/16/19 [id number] Ambulatory [address] Repository 12/15/2017/12/16/19 [id number] Ambulatory [address] Repository 12/15/2017/12/17/19 [id number] Ambulatory [address] Repository 12/14/2017/12/15/19 [id number] Ambulatory [address] ding:OLAB [facility] Repository 12/10/2017/12/11/19 [id number] Emergency [address] ding:ED Repository 11/29/2017 [id number] Ambulatory [facility] ding:US Repository 11/24/2017 [id number] Ambulatory [facility] ding:LAB Repository 10/26/2017 [id number] [facility] ding:LABSPEC Repository PAYERS PAYERS ENCOUNTER GUARANTOR PAYER SUBSCRIBER SOURCE 06/24/2018 RAYA I [id number] Primary RAYA I YODERDOB: Regino JOSEPHINE Insurance:MOSQUE [id number], [place] [address]Ylw: GROUPPolicy Number: Repository [id number] () Date: [address] [address]FA: 06/24/2018 Secondary NOT GIVENUNK [place] Insurance:SELF PAY [facility] Number: Effective Repository Date:2018-06-24 06/24/2018 RAYA I [id number] Primary NOT GIVENUNK Regino [place] Insurance:[place]LF [place], [place] [address]Ttu: Number: Effective Repository Date:2018-06-24 () 06/24/2018 RAYA I [id number] Primary RAYA I YODERDOB: Regino JOSEPHINE Insurance:MOSQUE [id number] AIDPolicy Number: [place], [place] [address]Zls: [id number] Repository Date:2018-06-24 (HP) 06/24/2018 Secondary NOT GIVENUNK [place] Insurance:SELF PAY [facility] Number: Effective Repository Date:2018-06-24 06/14/2018 RAYA I [id number] Primary RAYA I YODERDOB: [place] Insurance:MOSQUE [id number] Number: [place], [place] [address]Abh: [id number] Repository Date:2018-06-14 (HP) 06/14/2018 Secondary NOT GIVENUNK [place] Insurance:SELF PAY [facility] Number: Effective Repository Date:2018-06-14 06/08/2018 RAYA I [id number] Primary RAYA I YODERDOB: Regino JOSEPHINE Insurance:MOSQUE [id number], [place] [address]Gpx: GROUPPolicy Number: Repository [id number] () Date: [address] [address]JF: 06/08/2018 Secondary NOT GIVENUNK [place] Insurance:SELF PAY [facility] Number: Effective Repository Date:2018-05-31 04/22/2018 RAYA I [id number] Primary RAYA I YODERDOB: Regino JOSEPHINE Insurance:MOSQUE [id number], [place] [address]Zxr: GROUPPolicy Number: Repository [id number] () Date: [address] [address]RH: 04/22/2018 Secondary NOT GIVENUNK [place] Insurance:SELF PAY [facility] Number: Effective Repository Date:2018-04-21 04/12/2018 RAYA I [id number] Primary RAYA I YODERDOB: [place] Insurance:MOSQUE [id number], [place] [address]Wdz: GROUPPolicy Number: Repository [id number] (HP) Date: [address] [place] [address]XW: 04/12/2018 Secondary NOT GIVENUNK [place] Insurance:SELF PAY [facility] Number: Effective Repository Date:2018-04-12 03/24/2018 RAYA I [id number] Primary RAYA I YODERDOB: Regino Josephine Insurance:MOSQUE [id number], [place] [address]Odi: GROUPPolicy Number: Repository [id number] (HP) Date: [address] [address]BI: 03/24/2018 Secondary NOT GIVENUNK [place] Insurance:SELF PAY [facility] Number: Effective Repository Date:2018-03-23 03/22/2018 RAYA I [id number] Primary RAYA I YODERDOB: Regino Josephine Insurance:MOSQUE [id number] [facility] [place] , [place] [address]Xtu: GROUPPolicy Number: Repository [id number] (HP) Date: [address] [address]SM: 03/22/2018 Secondary NOT GIVENUNK [place] Insurance:SELF PAY [facility] Number: Effective Repository Date:2018-03-21 01/24/2018 RAYA I [id number] Primary RAYA I YODERDOB: [place] Insurance:MOSQUE [id number], [place] [address]Eqk: GROUPPolicy Number: Repository [id number] (HP) Date: [address] [address]CF: 01/24/2018 Secondary NOT GIVENUNK [place] Insurance:SELF PAY [facility] Number: Effective Repository Date:2018-01-24 01/17/2018 RAYA I [id number] Primary RAYA I YODERDOB: Regino Josephine Insurance:MOSQUE [id number] , [place] [address]Jub: GROUPPolicy Number: Repository [id number] (HP) Date: [address] [address]SF: 01/17/2018 Secondary NOT GIVENUNK [place] Insurance:SELF PAY [facility] Number: Effective Repository Date:2018-01-17 12/14/2017 RAYA YODERDOB: Primary RAYA YODERDOB: [facility] Insurance:SELF [id number] Foundation [place] [facility] Number: [address] [place] Repository [facility] Effective [place], [place] [address]Jmi: Date:2017-12-14 [place] [address]Frb: [id number] Name: () (HP) () 12/10/2017 RAYA I [id number] Primary RAYA I YODERDOB: Regino JOSEPHINE Insurance:MOSQUE [id number] [facility] [place] , [place] [address]Jgw: GROUPPolicy Number: Repository [id number] () Date: [address] [address]YU: 12/10/2017 Secondary NOT GIVENUNK [place] Insurance:SELF PAY [facility] Number: Effective Repository Date:2017-12-10 11/29/2017 RAYA I [id number] Primary Insurance:[facility] RAYA I YODERDOB: Regino Josephine [facility] [id number] Number: Effective [place], [place] [address]Kny: Date:2017-11-26 Repository (HP) 11/29/2017 Secondary NOT GIVENUNK [place] Insurance:SELF PAY [facility] Number: Effective Repository Date:2017-11-26 11/24/2017 RAYA I [id number] Primary RAYA I YODERDOB: [place] Insurance:MOSQUE [id number] Park Medical [facility] , [place] [address]Imm: GROUPPolicy Number: Repository [phone] [id number] (HP) Date: [address] [address]SX: 11/24/2017 Secondary NOT GIVENUNK [place] Insurance:SELF PAY [facility] Number: Effective Repository Date:2017-11-24 10/26/2017 RAYA I [id number] Primary RAYA I YODERDOB: [place] Insurance:MOSQUE [id number] Park [facility] , [place] [address]Ffz: GROUPPolicy Number: Repository [id number] (HP) Date: [address] [address]PO: 10/26/2017 Secondary NOT GIVENUNK Regino Insurance:SELF PAY [facility] Number: Effective Repository Date:2017-10-26
== END ==
DX: E55.9 Vitamin D deficiency, unspecified (principal); E03.9 Hypothyroidism, unspecified
CPT/HCPCS: 36415; 82306; 82310; 84481

== ENCOUNTER → 2018-06-14 09:59 | Outpatient (CLI) | payer OTHER, SELFPAY ==
[2018-06-14 10:31] LABS: Absolute Lymphocyte Count 2.08 X10^3/ul (0.83-4.51); Basophil# 0.01 X10^3/uL; Basophil% 0.1 % (0-1); Eosinophil# 0.05 X10^3/uL; Eosinophils% 0.7 % (0-5); Hematocrit 42.1 % (37-47); Hemoglobin 14.1 g/dl (12.0-15.0); Lymphocyte # 2.08 X10^3/ul (4.0); Lymphocyte % 27.5 % (19-41); Mean Corp Hgb Conc 33.5 g/gl (32-36); Mean Corpuscular Hgb 30.1 pg (27.0-32.0); Mean Platelet Vol. 10.6 fl (6.2-12.0); Monocyte# 0.44 X10^3/uL; Monocyte% 5.8 % (0-10); Neutrophil # 4.98 X10^3/uL (2.7-7.7); Neutrophil % 65.9 % (47-70); Platelet Count 156 K/mm3 (150-450); RBC Distribution Width CV 12.2 % (11.6-14.6); RBC Distribution Width SD 39.8 fl (35.1-43.9); Red Blood Count 4.68 M/mm3 (4.2-5.4); White Blood Count 7.6 K/mm3 (4.4-11.0)
[2018-06-14 10:36] LABS: Color, Urine Yellow (Yellow); Glucose, Dipstick Normal (Normal); Ketone-Dipstick Negative (Negative); Leukocyte Esterase-Dipstick Negative /ul (Negative); Nitrite-Dipstick Negative (Negative); Occult Blood-Urine 10 /ul (Negative); Protein-Dipstick 100 mg/dl (Negative); Specific Gravity, Urine 1.025 (1.002-1.030); Urine Bilirubin Dipstick Negative (Negative); Urine Clarity Clear (Clear); Urine Urobilinogen Normal (Normal)
[2018-06-14 10:38] LABS: POSITIVE COUNT NO; POSITIVE DIFFERENTIAL NO; POSITIVE MORPHOLOGY NO
[2018-06-14 10:53] LABS: Hemoglobin A1c 5.3 % (4.2-6.3)
[2018-06-14 11:27] LABS: Anion Gap 11 (5-15); Chloride 106 mmol/L (98-107); Creatinine, Serum 0.63 mg/dL (0.55-1.02); EST Glomerular Filtration Rate 110 mL/min (>60); Est Glom Filt Rate - Afr Amer 133 mL/min (>60); Free T3 3.8 pg/mL (2.18-3.98); Magnesium 1.9 mg/dL (1.6-2.6); Sodium Level 140 mmol/L (136-145)
== END ==
DX: E03.9 Hypothyroidism, unspecified (principal); N39.0 Urinary tract infection, site not specified; E87.8 Other disorders of electrolyte and fluid balance, not elsewhere classified; D51.0 Vitamin B12 deficiency anemia due to intrinsic factor deficiency
CPT/HCPCS: 36415; 80051; 81002; 82565; 83036; 83735; 84481; 85025

== ENCOUNTER → 2018-06-24 14:53 | Outpatient (CLI) | payer OTHER, SELFPAY ==
[2018-06-24 13:41] VITALS: BMI 37.8
[2018-06-24 16:00] LABS: T4 Total, Thyroxin 11.6 ug/dL (4.8-13.9); Thyroid Stim Hormone (TSH) 0.01 uIU/mL (0.358-3.74)
[2018-06-24 16:07] LABS: BNP,B-Type NATRIURETIC PEPTIDE 3.4 pg/mL (0-100)
--- OUTSIDE RECORDS SUMMARY | 2018-09-28 06:12 | XMS RPT_ITS ---
:1975 Author Organization OHIP Support Name Relationship Address Phone UE Unavailable Unavailable Unavailable GOODTONI BETANCOURTE Unavailable [address] + [place] [address] UE Unavailable Unavailable Unavailable GOODPATRIA BETANCOURT Unavailable [address] + [place] [address] UE Unavailable Unavailable Unavailable GOODTONI BETANCOURTE Unavailable [address] + [place] [address] UE Unavailable Unavailable Unavailable GOODTONI BETANCOURTE Unavailable [address] + [place] [address] UE Unavailable Unavailable Unavailable GOODTONI BETANCOURTE Unavailable [address] + [place] [address] UE Unavailable Unavailable Unavailable GOODTONI BETANCOURTE Unavailable [address] + [place] [address] UE Unavailable Unavailable Unavailable GOODTONI BETANCOURTE Unavailable [address] + [place] [address] UE Unavailable Unavailable Unavailable GOOD PATRIA Unavailable [address] + [place] [address] UE Unavailable Unavailable Unavailable GOODTONIE Unavailable [address] + [place] [address] UE Unavailable Unavailable Unavailable GOOD PATRIA Unavailable [address] + [place] [address] UE Unavailable Unavailable Unavailable GOOD, PATRIA Unavailable [address] + [place] [address] UE Unavailable Unavailable Unavailable GOOD PATRIA Unavailable [address] + [place] [address] UE Unavailable Unavailable Unavailable GOOD, PATRIA Unavailable [address] + [place] [address] UE Unavailable Unavailable Unavailable GOOD, PATRIA Unavailable [address] + [place] [address] UE Unavailable Unavailable Unavailable GOOD, PATRIA Unavailable [address] [phone] [place] [address] UE Unavailable Unavailable Unavailable GOOD, PATRIA Unavailable [address] [phone] [place] [address] UE Unavailable Unavailable Unavailable GOOD, PATRIA Unavailable [address] [phone] [place] [address] Care Team Providers Name Role Phone Connie Haque Attending Unavailable Dennis Chamorro Attending Unavailable RESSEGER, SCOTT Referring Unavailable AshtynDennis patton Attending Unavailable Ashtyn, Dennis Referring Unavailable RESSEGER, SCOTT Primary Care Unavailable Denzel Huddleston Attending Unavailable Denzel Huddleston Referring Unavailable RESSEGER, SCOTT Primary Care Unavailable BenekosLindsey Attending Unavailable RESSEGER, SCOTT Primary Care Unavailable Benekos, Lindsey Attending Unavailable Luis Alberto, Skip Primary Care Unavailable Benekos, Lindsey Referring Unavailable Luis Alberto, Skip Primary Care Unavailable RESSEGER, SCOTT Attending Unavailable RESSEGER, SCOTT Referring Unavailable RESSEGER, SCOTT Attending Unavailable RESSEGER, SCOTT Referring Unavailable Luis Alberto, Skip Primary Care Unavailable Ungur, Lulius Attending Unavailable RESSEGER, SCOTT Primary Care Unavailable Benekos, Lindsey Attending Unavailable Benekos, Lindsey Attending Unavailable RESSEGER, SCOTT Primary Care Unavailable RESSEGER, SCOTT Attending Unavailable RESSEGER, SCOTT Primary Care Unavailable RESSEGER, SCOTT Referring Unavailable RESSEGER, SCOTT Attending Unavailable RESSEGER, SCOTT Primary Care Unavailable RESSEGER, SCOTT Referring Unavailable SHAHEEN ELIAS Attending Unavailable SHAHEEN ELIAS Referring Unavailable RESSEGER, SCOTT Primary Care Unavailable RESSEGER, SCOTT Consulting Unavailable SHAHEEN ELIAS Attending Unavailable BERESEGER, SCOTT Primary Care Unavailable SHAHEEN ELIAS Referring Unavailable RESSEGER, SCOTT Attending Unavailable RESSEGER, SCOTT Primary Care Unavailable RESSEGER, SCOTT Referring Unavailable RESSEGER, SCOTT Attending Unavailable RESSEGER, SCOTT Referring Unavailable RESSEGER, SCOTT Primary Care Unavailable MARV LOUIE, DR. GEORGES Attending Unavailable MARV LOUIE, DR. GEORGES Primary Care Unavailable FANNING, CONCEPCION Oconnor Referring Unavailable FANNING, CONCEPCION Oconnor Referring Unavailable FANNING, CONCEPCION Oconnor Attending Unavailable RESSEGER, SCOTT BENJIE Referring Unavailable FANNING, CONCEPCION Oconnor Referring Unavailable FANNING, CONCEPCION Oconnor Attending Unavailable FANNING, CONCEPCION Oconnor Referring Unavailable PROBLEMS PROBLEMS DATE TYPE CONDITION / CODE ATTENDING STATUS SOURCE 07/25/2018 Unknown R06.09 - Other Denzel Huddleston Active [place] forms of dyspnea / Community R06.09(ICD-10) Hospital Repository 06/16/2018 Unknown E03.9 - RESSEGER, Active [place] Hypothyroidism, [facility] unspecified / Hospital E03.9(ICD-10) Repository 06/16/2018 Unknown N39.0 - Urinary RESSEGER, Active [place] tract infection, [facility] site not specified Hospital / N39.0(ICD-10) Repository 06/16/2018 Unknown E87.8 - Other RESSEGER, Active [place] disorders of [facility] electrolyte and Hospital fluid balance, not Repository elsewhere classified / E87.8(ICD-10) 06/21/2018 Unknown E55.9 - Vitamin D RESSEGER, Active [place] deficiency, [facility] unspecified / Hospital E55.9(ICD-10) Repository 01/17/2018 Unknown O20.0 - Threatened Lindsey Whaley Active [place] / Community O20.0(ICD-10) Hospital Repository 01/17/2018 Unknown N91.2 - Lindsey Whaley Active [place] Amenorrhea, Community unspecified / Hospital N91.2(ICD-10) Repository 12/15/2017 Active Other pancytopenia NA Active [facility] / D61.818(ICD-10) Main [place] Repository 04/18/2018 Unknown Z03.89 - Encounter Sanjuana Branch Active [place] for observation Community for other Hospital suspected diseases Repository and conditions ruled out / Z03.89(ICD-10) 10/27/2017 Unknown Z12.4 - Encounter Lindsey Whaley Active [place] for screening for Community malignant neoplasm [facility] / Repository Z12.4(ICD-10) PROCEDURES PROCEDURES No Procedure Records FoundRESULTS RESULTS HCG TITER QUANT., Collected: 2018 Status: F Source: [place] SERUM 1:42 PM [facility] REPOSITORY TYPE CODE TESTS RESULT OUT OF RANGE REFERENCE UNITS LAB L700.8000 <9 non-preg mIU/mL Normal HCG 1 QUANT. Performed By: #### L700.8000 #### [facility] [address] [place], [address] ECHO, COMPLETE W/ Observed: 07/25/2018 Status: F Source: [place] CONTRAST 5:42 PM [facility] REPOSITORY [facility] Cardiovascular Services [address] [place] [address] Echo Complete W/ Contrast 07/25/18 1257 MR#: [id number] Acct: [id number] Name: RAYA GOOD I Rep #: [id number] : 1975 42 From: Dennis Chamorro MD Attending Dr: Denzel Huddleston MD Status: REG CLI Ordering Dr: Dennis Chamorro MD Date: 07/25/18 Location: CVS Sex: F C Admitted: Reason For Study: DYSPNEA/SOB Procedure This was a 2D Doppler, Color Flow transthoracic echocardiogram. The study was technically difficult. Due to body habitus. Contrast injection was performed. Exam performed in department. Left Ventricle Normal LV size. Left ventricular systolic function is normal. The estimated ejection fraction is 55 %. Stage 1 diastolic dysfunction. No regional wall motion abnormalities noted. Right Ventricle Normal RV size. Normal systolic function. Atria Normal left atrium. Normal right atrium. Mitral Valve Mitral valve not well visualized. Tricuspid Valve The tricuspid valve is not well visualized. Mild tricuspid valve insufficiency. Pulmonary artery systolic pressure is 25 mmHg. Aortic Valve The aortic valve is not well visualized. Pulmonic Valve The pulmonic valve is not well visualized. Great Vessels Normal aortic root. The pulmonary artery is normal size. Normal inferior vena cava. Pericardium/Pleural No pericardial effusion. Medication 22 gauge I.V. with prn adaptor inserted into right arm. Diluted definity 0.2ml given slow IV push to enhance endocardial definition. MMode/2D Measurements AND Calculations LVIDd: 5.0 cm IVSd: 0.91 cm Ao root diam: 2.7 cm LVIDs: 3.3 cm LVPWd: 1.1 cm RVDd: 3.1 cm FS: 35.1 % LAV(MOD-bp): 57.5 ml LA A4 area: 19.0 cm2 LA dimension(2D): 3.4 cm LAV(MOD-bp) Indexed: 29.3 ml/m2 LAV(MOD-sp2): 54.0 ml LAV(MOD-sp4): 54.8 ml RA A4 area: 13.5 cm2 Doppler Measurements AND Calculations MV E max raudel: 67.2 cm/sec Lat Peak E' Raudel: 10.6 cm/sec Med Peak E' Raudel: 9.1 cm/sec MV A max raudel: 78.2 cm/sec E/E' lat: 6.3 E/E' med: 7.4 MV E/A: 0.86 Ao V2 max: 132.2 cm/sec LV V1 max: 86.2 cm/sec PA V2 max: 88.3 cm/sec Ao max P.0 mmHg LV V1 max P.0 mmHg TR max raudel: 233.8 cm/sec TR max P.9 mmHg Interpretation Summary Normal LV size. Left ventricular systolic function is normal. The estimated ejection fraction is 55 %. Stage 1 diastolic dysfunction. The study was technically difficult. Contrast injection was performed. Ordering Physician: Dennis Chamorro Referring Physician: Scott Kurtz Performed By: Alma Villalobos, KATHLEEN, RVT 07/25/181740 Date Dennis Chamorro MD CC: SCOTT KURTZ; Dennis Chamorro MD; Denzel Huddleston MD Date Dictated: 07/25/18 1257 Date Transcribed: 07/25/181740 Paralegal Internship: Signed T4 TOTAL, THYROXIN Collected: 06/24/2018 Status: F Source: [place] 3:04 PM [facility] REPOSITORY TYPE CODE TESTS RESULT OUT OF RANGE REFERENCE UNITS LAB L501.9310 4.8-13.9 ug/dL T4 Normal THYROXIN 11.6 Performed By: #### L501.9310, L501.9520 #### [facility] [address] [place], [address] THYROID STIM HORMONE Collected: 06/24/2018 Status: F Source: [place] (TSH) 3:04 PM [facility] REPOSITORY TYPE CODE TESTS RESULT OUT OF RANGE REFERENCE UNITS LAB L501.9520 0.358-3.74 uIU/mL Low TSH 0.01 Performed By: #### L501.9310, L501.9520 #### [facility] [address] [place], [address] BNP,B-TYPE NATRIURETIC Collected: 06/24/2018 Status: F Source: [place] PEPTIDE 3:04 PM [facility] REPOSITORY TYPE CODE TESTS RESULT OUT OF RANGE REFERENCE UNITS LAB L503.6620 0-100 pg/mL Normal B-TYPE 3.4 STORMY PEP Performed By: #### L503.6620 #### [facility] [address] [place], [address] CARDIOLOGY VISIT Observed: 06/24/2018 Status: F Source: [place] REPORT 2:08 PM [facility] REPOSITORY [facility] [address] [place] [address] OFFICE VISIT Date of Service: 06/24/18 MR#: [id number] Acct: [id number] Name: RAYA GOOD I Rep #: [id number] : 1975 Provider: Dennis Chamorro MD Age/Sex: 42/F Location: [facility] Status: Signed HPI HPI Chief Complaint: Initial [...] used to be before. She is on [place] Thyroid at this time. Her physical exam demonstrates clear lung vargas regular rate and rhythm no pedal edema is noted. Her blood pressure is under good control. Intake Vital Signs06/24/18 Height 5 ft 2 in Intake Visit Reasons: pcp referred Allergies amitriptyline Adverse Reaction (Verified 06/24/18 13:26) Unknown liothyronine [From Cytomel] Adverse Reaction (Verified 06/24/18 13:26) Unknown Medications Thyroid,Pork [[place] Thyroid] 180 mg PO DAILY 06/09/17 [History Confirmed 06/24/18] ergocalciferol (vitamin D2) 50,000 unit tablet unit PO tab 06/24/18 [History Confirmed 06/24/18] furosemide 20 mg tablet 20 mg PO DAILY 30 Days #30 tab 06/24/18 [History Confirmed 06/24/18] PFSH Medical History Hypothyroidism (Chronic) Obesity (Chronic) Vitamin [...] Observed: 06/24/2018 Status: F Source: [place] BY [facility] 2:07 PM [facility] REPOSITORY [address] [address] 12 Lead EKG performed by [facility] 06/24/18 140 MR#: [id number] Acct: [id number] Name: RAYA GOOD I Rep #: [id number] : 1975 42 From: Dennis Chamorro MD Attending Dr: Dennis Chamorro MD Status: DEP AMB Ordering Dr: Dennis Chamorro MD Date: 06/24/18 Location: [facility] Sex: F C Admitted: [facility]/12 Lead EKG performed by [facility] ECG Report Interpretation Sinus Rhythm WITHIN NORMAL LIMITSElectronically signed on 08/02/2018 at 16:35 by Dennis Chamorro [employer] Version [id number] 08/02/18 1645 Date Dennis Chamorro MD CC: SCOTT KURTZ Date Dictated: 06/24/181403 Date Transcribed: 12/14/18 1404 Paralegal Internship: [place] Signed URINALYSIS, ROUTINE Collected: 06/14/2018 Status: F Source: [place] (DIPSTICK) 10:04 AM [facility] REPOSITORY Order Comment: How was Urine Obtained? [...] ESTERASE Negative Performed By: #### L400.2010 #### [facility] [address] [place], [address] CBC W/DIFF, AUTOMATED Collected: 06/14/2018 Status: F Source: [place] 10:04 AM [facility] REPOSITORY TYPE CODE TESTS RESULT OUT [...] Lymph 2.08 Performed By: #### L100.0100 #### [facility] [address], [address] HEMOGLOBIN A1C Collected: 06/14/2018 Status: F Source: [place] 10:04 [facility] REPOSITORY TYPE CODE TESTS RESULT OUT OF RANGE REFERENCE UNITS LAB L501.9985 4.2-6.3 % Normal HGB A1C 5.3 Performed By: #### L501.9985 #### [facility] [address] [place], [address] SERUM CREATININE AND Collected: 06/14/2018 Status: F Source: [place] GFR 10:04 [facility] REPOSITORY TYPE CODE TESTS RESULT OUT OF [...] Calc Performed By: #### L501.1105, L501.5200, L501.5294, L501.99915 #### [facility] [address] [place], [address] MAGNESIUM Collected: 06/14/2018 Status: F Source: [place] 10:04 AM [facility] REPOSITORY TYPE CODE TESTS RESULT OUT OF RANGE REFERENCE UNITS LAB L501.5200 1.6-2.6 mg/dL Normal MG 1.9 Performed By: #### L501.1105, L501.5200, L501.5294, L501.98179 #### [facility] [address] [place], [address] ELECTROLYTE PANEL Collected: 06/14/2018 Status: F Source: [place] 10:04 AM [facility] REPOSITORY TYPE CODE TESTS RESULT OUT OF RANGE REFERENCE UNITS LAB L501.5300 136-145 mmol/L Normal NA 140 LAB L501.5600 3.5-5.1 mmol/L Normal K 4.0 LAB L501.5900 98-107 mmol/L Normal CL 106 LAB L501.6100 21.0-32.0 mmol/L Normal CO2 23.0 LAB L501.6200 5-15 Normal GAP 11 Performed By: #### L501.1105, L501.5200, L501.5294, L501.55837 #### [facility] [address] [place], [address] FREE T3 Collected: 06/14/2018 Status: F Source: [place] 10:04 AM [facility] REPOSITORY TYPE CODE TESTS RESULT OUT OF RANGE REFERENCE UNITS LAB L501.45305 2.18-3.98 pg/mL Normal FREE T3 3.8 Performed By: #### L501.1105, L501.5200, L501.5294, L501.16533 #### [facility] [address] [place], [address] CALCIUM,TOTAL Collected: 06/08/2018 Status: F Source: [place] 9:32 AM [facility] REPOSITORY Order Comment: Comments: [id number] IODINE ROYAL BLUE RT PLASMA TYPE CODE TESTS RESULT OUT OF RANGE REFERENCE UNITS LAB L501.2200 8.5-10.1 mg/dL Normal CA 9.2 Performed By: #### L501.2200, L501.25490 #### [facility] [address] [place], [address] FREE T3 Collected: 06/08/2018 Status: F Source: [place] 9:32 AM [facility] REPOSITORY Order Comment: Comments: [id number] IODINE ROYAL BLUE RT PLASMA TYPE CODE TESTS RESULT OUT OF RANGE REFERENCE UNITS LAB L501.58614 2.18-3.98 pg/mL High FREE T3 5.2 Performed By: #### L501.2200, L501.19673 #### [facility] [address] [place], [address] VITAMIN D,25 HYDROXY Collected: 06/08/2018 Status: F Source: [place] 9:32 AM [facility] REPOSITORY TYPE CODE TESTS RESULT OUT OF RANGE REFERENCE UNITS LAB L506.1000 29.95-100.01 ng/mL Normal Vitamin D 38.1 25-OH Result Comment: Vitamin D 25(OH) Status Range Deficiency <20 ng/mL (50nmol/L) Insuffciency 20 - 30 ng/mL (50 - 75 nmol/L) Sufficiency 30 - 100 ng/mL (75 - 250 nmol/L) Toxicity >100 ng/mL (>250 nmol/L) Performed By: #### L506.1000 #### [facility] [address] [place], [address] MISCELLANEOUS LAB Collected: 06/08/2018 Status: F Source: [place] PROCEDURE 9:32 AM [facility] REPOSITORY Order Comment: Comments: [id number] IODINE ROYAL BLUE RT PLASMA Test(s) Ordered: [id number] IODINE ROYAL BLUE RT PLASMA TYPE CODE TESTS RESULT OUT OF RANGE REFERENCE UNITS LAB L801.1541 Normal [facility] [place] Result Comment: TEST RESULT UNITS REFERENCE INTERVAL IODINE, SERUM OR PLASMA 47.3 ug/L 40.0 - 92.0 limit of quantitation = 20 [facility]. ORIGINAL REPORT ON FILE IN LAB CONTAINS ADDITIONAL TEST SITE INFORMATION. Performed By: #### L801.1541 #### [facility] [address] [place], [address] CALCIUM,TOTAL Collected: 04/22/2018 Status: F Source: [place] 12:39 PM [facility] REPOSITORY TYPE CODE TESTS RESULT OUT OF RANGE REFERENCE UNITS LAB L501.2200 8.5-10.1 mg/dL Normal CA 8.6 Performed By: #### L501.2200 #### [facility] [address] [place], [address] PTHIN Collected: 04/22/2018 Status: F Source: [place] 12:39 PM [facility] REPOSITORY TYPE CODE TESTS RESULT OUT OF RANGE REFERENCE UNITS LAB L509.1000 18.4-80.1 pg/mL High PTHIN 165.3 Performed By: #### L509.1000 #### [facility] [address] [place], [address] CALCIUM IONIZED Collected: 04/22/2018 Status: F Source: [place] 12:39 PM [facility] REPOSITORY TYPE CODE TESTS RESULT OUT OF RANGE REFERENCE UNITS LAB L3100.9600 4.5-5.6 mg/dL Normal IONIZED CA 5.2 Result Comment: Performed at: - [facility] [id number] Car Dumper Operator Helper: Jose Harrell PhD, Phone: [phone] Performed By: #### L3100.9600 #### [facility] (refer to report for specific site) refer to report for address and phone number CALCIUM,TOTAL Collected: 04/12/2018 Status: F Source: [place] 3:33 PM [facility] REPOSITORY Order Comment: WANTS THE CA WANTS THE CA VITD PTH IONIZED CA TYPE CODE TESTS RESULT OUT OF RANGE REFERENCE UNITS LAB L501.2200 8.5-10.1 mg/dL Normal CA 9.1 Performed By: #### L501.2200 #### [facility] [address] [facility] [place], [place], [address] PTHIN Collected: 04/12/2018 Status: F Source: [place] 3:33 PM [facility] REPOSITORY Order Comment: WANTS THE CA WANTS THE CA VITD PTH IONIZED CA TYPE CODE TESTS RESULT OUT OF RANGE REFERENCE UNITS LAB L509.1000 18.4-80.1 pg/mL Normal PTHIN 63.9 Performed By: #### L509.1000 #### [facility] [place], [place], [address] VITAMIN D,25 HYDROXY Collected: 04/12/2018 Status: F Source: [place] 3:33 PM [facility] REPOSITORY Order Comment: WANTS THE CA WANTS [...] (>250 nmol/L) Performed By: #### L506.1000 #### [facility] [facility] [place], [place], [address] CALCIUM IONIZED Collected: 04/12/2018 Status: F Source: [place] 3:33 PM [facility] REPOSITORY Order Comment: WANTS THE CA WANTS THE CA VITD PTH IONIZED CA TYPE CODE TESTS RESULT OUT OF RANGE REFERENCE UNITS LAB L3100.9600 4.5-5.6 mg/dL Normal IONIZED CA 5.4 Result Comment: Performed at: [address] [id number] Car Dumper Operator Helper: Jose Harrell PhD, Phone: [phone] Performed By: #### L3100.9600 #### [facility] (refer to report for specific site) refer to report for address and phone number PTHIN Collected: 03/24/2018 Status: F Source: [place] 9:16 AM [facility] REPOSITORY Order Comment: NO VRO CHARGE REDRAW TYPE CODE TESTS RESULT OUT OF RANGE REFERENCE UNITS LAB L509.1000 18.4-80.1 pg/mL High PTHIN 86.8 Performed By: #### L509.1000 #### [facility] [address] [place], [place], [address] THYROID PEROXIDASE AB Collected: 03/24/2018 Status: F Source: [place] 9:16 AM [facility] REPOSITORY Order Comment: NO VRO CHARGE REDRAW TYPE CODE TESTS RESULT OUT OF RANGE REFERENCE UNITS LAB L3300.6900 0-34 IU/mL Normal TPO AB 9 6676 Result Comment: Performed at: [facility] [id number] Car Dumper Operator Helper: Jose Harrell PhD, Phone: [phone] Performed By: #### L3300.6900 #### [facility] (refer to report for specific site) refer to report for address and phone number URINALYSIS, COMPLETE Collected: 03/22/2018 Status: F Source: [place] 3:17 PM [facility] REPOSITORY Order Comment: Comments: REFLEX CULTURE How [...] URINE RARE Performed By: #### L400.0001 #### [facility] [address] [place], [place], [address] ELECTROLYTE PANEL Collected: 03/22/2018 Status: F Source: [place] 3:17 PM [facility] REPOSITORY Order Comment: Comments: REFLEX CULTURE TYPE CODE TESTS RESULT OUT OF RANGE REFERENCE UNITS LAB L501.5300 136-145 mmol/L Normal NA 139 LAB L501.5600 3.5-5.1 mmol/L Normal K 3.9 LAB L501.5900 98-107 mmol/L Normal CL 105 LAB L501.6100 21.0-32.0 mmol/L Normal CO2 24.0 LAB L501.6200 5-15 Normal GAP 10 Performed By: #### L501.5294, L501.70726, L501.9520 #### [facility] [address] [facility] [place], [place], [address] FREE T3 Collected: 03/22/2018 Status: F Source: [place] 3:17 PM [facility] REPOSITORY Order Comment: Comments: REFLEX CULTURE TYPE CODE TESTS RESULT OUT OF RANGE REFERENCE UNITS LAB L501.91800 2.18-3.98 pg/mL High FREE T3 4.0 Performed By: #### L501.5294, L501.83256, L501.9520 #### [facility] [address] [facility] [place], [place], [address] THYROID STIM HORMONE Collected: 03/22/2018 Status: F Source: [place] (TSH) 3:17 PM [facility] REPOSITORY Order Comment: Comments: REFLEX CULTURE TYPE CODE TESTS RESULT OUT OF RANGE REFERENCE UNITS LAB L501.9520 0.358-3.74 uIU/mL Low TSH 0.08 Performed By: #### L501.5294, L501.70444, L501.9520 #### [facility] [address] [facility] [place], [place], [address] CBC-COMPLETE BLOOD CNT Collected: 01/24/2018 Status: F Source: [place] NO DIFF 2:34 PM [facility] REPOSITORY TYPE CODE TESTS RESULT OUT [...] MPV 10.4 Performed By: #### L100.0500 #### [facility] [address] [facility] [place], [place], [address] HCG TITER QUANT., Collected: 01/17/2018 Status: F Source: [place] SERUM 1:09 PM [facility] REPOSITORY TYPE CODE TESTS RESULT OUT OF RANGE REFERENCE UNITS LAB L700.8000 <9 non-preg mIU/mL High HCG 14 QUANT. Performed By: #### L700.8000 #### [facility] [address] [place], [place], [address] PROGRESS Observed: 12/29/2017 Status: COMPLETED Source: [place] 2:46 PM [facility] REPOSITORY HNO ID: [id number] Author: Concepcion Diaz Service: (none) Author Type: [...] 2 units of packed red cells at [facility]. Liver function tests and chemistries were normal. [...] MD CNOVSP Observed: 12/29/2017 Status: COMPLETED Source: [place] 2:30 PM [facility] REPOSITORY Visit (SP) Office ([place]) RAYA GOOD I ([id number]) 1975 F Date Time Provider Department 12/29/17 2:30 PM CONCEPCION DIAZ During your visit today, we recorded the following information about you: Temperature Pulse Respiration Blood pressure 97.4 degrees 78/minute 18/minute 155/89 Weight Height 92.6 kg 1.562 m Concepcion Diaz MD 12/29/2017 2:48 PM Signed [facility] Raya Guillory Latisha is a 42 year [...] 2 units of packed red cells at [facility]. Liver function tests and chemistries were normal. When she saw me in consultation her white blood cell count is a little bit elevated 11 but her hemoglobin and platelets are otherwise normal. She is not pale or peeked and did not have any symptoms or signs of dyspnea on exertion, chest pain with exertion, etc. her color has not changed. Current Outpatient Prescriptions: NETO THYROID 180 mg [...] Concepcion Diaz MD Referring Provider: CONCEPCION DIAZ [[id number]] Allergies As of Date: 12/29/2017 (No Known [...] 12/29/17 PROGRESS Observed: 12/15/2017 Status: COMPLETED Source: [place] 3:53 PM [facility] [place] RE[facility]IT[facility] ID: [id number] Author: Concepcion Diaz Service: (none) Author Type: Physician Type: Progress Notes Filed: 12/15/2017 3:59 PM Note Text: SHAYLEE Good is a 42 year old female who presents consultation December 15, 2017 with severe pancytopenia. She had some edema and swelling in her fingers and toes. This has resolved. On December 09 her white count 1.6 hemoglobin 4.7 platelet count of 18. MCV was normal. She was typed and crossed, given 2 units of packed red cells at [facility]. Liver function tests and chemistries were normal. [...] MD CNOVSP Observed: 12/15/2017 Status: COMPLETED Source: [place] 3:30 PM [facility] REPOSITORY Visit (SP) Office ([place]) RAYA GOOD I ([id number]) 1975 F Date Time Provider Department 12/15/17 [...] 2 units of packed red cells at [facility]. Liver function tests and chemistries were normal. [...] Concepcion Diaz MD Referring Provider: SCOTT KURTZ [[id number]] Allergies As of Date: 12/15/2017 (No Known [...] RATE WESTERGREN Collected: 12/15/2017 Status: F Source: [place] 3:21 PM [facility] REPOSITORY TYPE CODE TESTS RESULT OUT OF REFERENCE UNITS RANGE LAB WSR 0-20 mm/hr Sed Rate Westergren 13 Performed By: #### WSR, LD6, IRON, BMP, HFP, FERR, B12, SERFOL, SEPG, MMA #### [facility] [employer] [address], [place] [address] LD Collected: 12/15/2017 Status: F Source: [facility] 3:21 PM [facility] REPOSITORY TYPE CODE TESTS RESULT OUT OF RANGE REFERENCE UNITS LAB LD 135-214 U/L LD 159 Performed By: #### WSR, LD6, IRON, BMP, HFP, FERR, B12, SERFOL, SEPG, MMA #### [facility] [employer] [address] [place], [place] [address] IRON AND TIBC Collected: 12/15/2017 Status: F Source: [place] 3:21 PM [facility] REPOSITORY TYPE CODE TESTS RESULT OUT OF REFERENCE UNITS RANGE LAB IRN 41-186 ug/dL Iron 65 LAB TIBC 232-386 ug/dL TIBC 291 LAB SAT 15-57 % Transferrin Saturatn 22 Performed By: #### WSR, LD6, IRON, BMP, HFP, FERR, B12, SERFOL, SEPG, MMA #### [facility] [employer] [address] [place], [place] [address] BASIC METABOLIC PANL Collected: 12/15/2017 Status: F Source: [place] 3:21 PM [facility] REPOSITORY TYPE CODE TESTS RESULT OUT OF REFERENCE UNITS RANGE LAB GLU 74-99 mg/dL Glucose 81 Result Comment: The [place] Diabetes Association (ADA) provides guidance for cutoff [...] Standards of Medical Care in Diabetes 2016, [place] Diabetes Association. Diabetes Care. 2016.39(Suppl 1). LAB [...] HFP, FERR, B12, SERFOL, SEPG, MMA #### [facility] [address] [place] [address] HEPATIC FUNCTN PANEL Collected: 12/15/2017 Status: F Source: [place] 3:21 PM [facility] REPOSITORY TYPE CODE TESTS RESULT [...] HFP, FERR, B12, SERFOL, SEPG, MMA #### [facility] [address] [place] [address] FERRITIN Collected: 12/15/2017 Status: F Source: [place] 3:21 PM [facility] REPOSITORY TYPE CODE TESTS RESULT OUT OF REFERENCE UNITS RANGE LAB FERR 14.7-205.1 ng/mL Ferritin 57.3 Performed By: #### WSR, LD6, IRON, BMP, HFP, FERR, B12, SERFOL, SEPG, MMA #### [place] [address] VITAMIN B12 Collected: 12/15/2017 Status: F Source: [place] 3:21 [facility] REPOSITORY TYPE CODE TESTS RESULT OUT OF REFERENCE UNITS RANGE LAB B12 232-1245 pg/mL Vitamin B12 449 Performed By: #### WSR, LD6, IRON, BMP, HFP, FERR, B12, SERFOL, SEPG, MMA #### [place] [address] FOLATE, SERUM Collected: 12/15/2017 Status: F Source: [place] 3:21 PM [facility] REPOSITORY TYPE CODE TESTS RESULT OUT OF REFERENCE UNITS RANGE LAB SERFOL >4.7 ng/mL Folate, 14.9 Serum Performed By: #### WSR, LD6, IRON, BMP, HFP, FERR, B12, SERFOL, SEPG, MMA #### [place] [address] PROTEIN ELECTROPHOR. Collected: 12/15/2017 Status: F Source: [place] 3:21 PM [facility] REPOSITORY TYPE CODE TESTS RESULT OUT [...] Staff Review Reviewed [place]ce [place] ([id number]) Performed By: #### WSR, LD6, IRON, BMP, HFP, FERR, B12, SERFOL, SEPG, MMA #### [facility] [employer] [address], [place] [id number] METHYLMALONIC ACID Collected: 12/15/2017 Status: F Source: [place] 3:21 PM [facility] REPOSITORY TYPE CODE TESTS RESULT OUT OF REFERENCE UNITS RANGE LAB MMA 79-376 nmol/L Methylmalonic Acid 188 Result Comment: This test was developed and its performance characteristics determined by [facility]'s Edmond Stark [facility] Pathology and Laboratory Medicine [place] (-PLMI). It has not been cleared or approved by the FDA. -[facility] is regulated under CLIA as qualified to perform high-complexity testing. This test is used for clinical purposes. It should not be regarded as investigational or for research. Performed By: #### WSR, LD6, IRON, BMP, HFP, FERR, B12, SERFOL, SEPG, MMA #### [facility] [employer] [address], [place] [id number] REMOTE ABS GRAN + Collected: 12/15/2017 Status: F Source: [place] CBC (FOR [facility] USE 3:20 PM [facility] ONLY) REPOSITORY TYPE CODE TESTS RESULT [...] 7.84 CBC Collected: 12/14/2017 Status: C Source: [facility] 11:42 AM [facility] REPOSITORY TYPE CODE TESTS RESULT OUT OF [...] to Platelete clump. Recollect specimen. Called result @[phone] LAB MPV(LOINC) 7.4-10.4 fL MPV 8.1 Performed By: #### CBC, ADRAYMOND, ANEU, FE #### [facility] [place] [id number] .AUTO DIFF Collected: 12/14/2017 Status: F Source: [facility] 11:42 AM [facility] REPOSITORY TYPE CODE TESTS RESULT OUT OF [...] By: #### CBC, ADIFF, ANEU, FE #### [place] [address] .NEUABS Collected: 12/14/2017 Status: F Source: [facility] 11:42 [facility] REPOSITORY TYPE CODE TESTS RESULT OUT OF REFERENCE UNITS RANGE LAB ANEU(LOINC) 2.85-6.16 10 3/mcL Neutrophil, 5.90 Absolute Performed By: #### CBC, ADIFF, ANEU, FE #### [address] [address] FE Collected: 12/14/2017 Status: F Source: [facility] 11:42 [facility] REPOSITORY TYPE CODE TESTS RESULT OUT OF RANGE REFERENCE UNITS LAB FE(LOINC) 65-170 mcg/dL Iron 90 Performed By: #### CBC, ADIFF, ANEU, FE #### [place] [address] UA Collected: 12/14/2017 Status: F Source: [facility] 11:42 [facility] REPOSITORY TYPE CODE TESTS RESULT [...] Performed By: #### UA, UAMICAO #### [facility] [place] [address] [place], [place] [address] .URINALYSIS MICROSCOPIC Collected: 12/14/2017 Status: F Source: [place] ([place]) 11:42 AM [facility] REPOSITORY TYPE CODE TESTS RESULT OUT OF RANGE REFERENCE UNITS LAB WBCUA(LOIN None Seen /hpf C) Unknown UA WBC 0-5 LAB RBCUA(LOIN None Seen /hpf C) Unknown UA RBC 0-5 LAB EPIUA(LOIN None Seen /hpf C) Unknown UA Squam Epithelial 0-5 Performed By: #### UA, UAMICAO #### [facility] [address] [address] EMERGENCY DEPARTMENT Observed: 12/10/2017 Status: F Source: [place] SUMMARY 4:44 PM [facility] REPOSITORY [facility] Medical Records Department [address] [place] [address] Emergency Department Summary 12/10/17 1617 MR#: [id number] Acct: [id number] Name: RAYA GOOD I Rep #: [id number] : 1975 42 From: Sanjuana Branch DO [...] cell count of 1.6.] Physical Examination: [HEENT-PERRLA, EOMI. Cranial nerves II through XII grossly intact. [...] abnormal labs] This note was generated with [employer] dictation software. It may contain incorrect words, [...] problems, contact your Primary Care Provider. Call [facility] ([phone]) or report to the closest Emergency Room. Call 911 if necessary. 12/10/17 1623 <Electronically signed by Sanjuana Branch DO> Date Sanjuana Branch DO Cosigner Signature (If Indicated): Date CC: SCOTT KURTZ DISCHARGE INSTRUCTION Observed: 12/10/2017 Status: F Source: [place] 4:24 PM [facility] REPOSITORY [facility] Medical Records Department [address] [place] [address] Discharge Instruction 12/10/17 1623 MR#: [id number] Acct: [id number] Name: RAYA GOOD I Rep #: [id number] : 1975 42 From: Sanjuana Branch DO [...] problems, contact your Primary Care Provider. Call [facility] ([phone]) or report to the closest Emergency Room. Call 911 if necessary. 12/10/17 1624 <Electronically signed by Snajuana Branch DO> Date Sanjuana Branch DO Cosigner Signature (If Indicated): Date CC: SCOTT KURTZ URINALYSIS, COMPLETE Collected: 12/10/2017 Status: F Source: [place] 3:15 PM [facility] REPOSITORY Order Comment: Order Date: 12/10/17 Has pt arrived? Y How was Urine Obtained? HOME CARE COMPANION TO SPECIFY TYPE CODE TESTS RESULT OUT [...] URINE SEEN Performed By: #### L400.0001 #### [facility] [address] [place], [place], [address] BASIC METABOLIC Collected: 12/10/2017 Status: F Source: [place] PROFILE (BMP) 2:04 PM [facility] REPOSITORY TYPE CODE TESTS RESULT OUT [...] Normal 7 Performed By: #### L500.2500 #### [facility] [address] [place], [address] TYPE AND SCREEN Collected: 12/10/2017 Status: F Source: [place] 2:04 PM [facility] REPOSITORY Order Comment: Reason for Type AND Screen/Red Cells: ANEMIA TYPE CODE TESTS RESULT OUT OF RANGE REFERENCE UNITS LAB B10.0800 A Normal BLOOD TYPE GEL POSITIVE LAB B100.4000 Normal Antibody NEGATIVE Screen Performed By: #### B101.7450 #### [facility] [address] [facility] [place], [place], [address] PLATELET COUNT Collected: 12/10/2017 Status: F Source: [place] 2:04 PM [facility] REPOSITORY Order Comment: RAN ON NA CITRATE TUBE PER DR SEGURA TYPE CODE TESTS RESULT OUT OF RANGE REFERENCE UNITS LAB L100.1900 150-450 K/mm3 Normal PLT 207 Performed By: #### L100.1900 #### [place] [facility] [address] [place], [address] CBC W/DIFF, AUTOMATED Collected: 12/10/2017 Status: F Source: [place] 1:58 PM [facility] REPOSITORY TYPE CODE TESTS RESULT OUT [...] Lymph 2.28 Performed By: #### L100.0100 #### [facility] [address] [place], [address] ABDOMEN SINGLE VIEW Observed: 11/29/2017 Status: F Source: [place] 10:29 AM [facility] REPOSITORY [facility] Imaging Services [address] [place] [address] Abdomen Single View MR#: [id number] Acct: [id number] Name: RAYA GOOD I Rep #: [id number] : 1975 F 42 From: Michael Alejandro MD PCP: Skip Sahu MD Status: REG CLI Study: Abdomen Single View Date of Exam: 11/29/17 Exam# [id number] Ordering Dr: Scott Kurtz STUDY: X-RAY - ABDOMEN/PELVIS REASON FOR EXAM: Female, 42 years old. Hematuria times several months TECHNIQUE: Two AP supine views of the abdomen and pelvis. COMPARISON: None. FINDINGS: The lung bases are not included in the ofzah-pj-arkf of the study. There is an unremarkable [...] , CC: SCOTT KURTZ; Skip Sahu MD Paralegal Internship: Signed KIDNEY AND BLADDER Observed: 11/29/2017 Status: F Source: [place] 9:44 AM [facility] REPOSITORY [facility] Imaging Services [address] [place] [address] Kidney and Bladder MR#: [id number] Acct: [id number] Name: RAYA GOOD I Rep #: [id number] : 1975 F 42 From: Michael Alejandro MD PCP: Skip Sahu MD Status: REG CLI Study: Kidney and Bladder Date of Exam: 11/29/17 Exam# [id number] Ordering Dr: Scott Kurtz STUDY: RENAL ULTRASOUND [...] , CC: SCOTT KURTZ; Skip Sahu MD Paralegal Internship: Signed URINALYSIS, COMPLETE Collected: 11/24/2017 Status: F Source: [place] 2:48 PM [facility] REPOSITORY Order Comment: How was Urine Obtained? [...] MUCUS, URINE Performed By: #### L400.0001 #### [facility] [address] [place], [address] Observed: 11/24/2017 Status: F Source: [place] CULTURE, URINE 2:48 PM [facility] REPOSITORY Urine Culture Below infection level. ORGANISM 1: Mixed Gram Positive Organisms [place] Count 1000-10,000 MIX CULTURE Mixed contaminants. Submit a new specimen if indicated. Performed By: #### M100.0650 #### [facility] [place], [address] PAP I-G W/RFX HRHPV Collected: 10/26/2017 Status: F Source: [place] 2:30 PM [facility] REPOSITORY Order Comment: CYTOLOGY INFORMATION: - CLINICAL INFORMATION: - DATE LMP/MENOPAUSE: LMP not given - COLLECTION VIAL: Thin Prep Vial - DATA LEAD SOURCE: CERVICAL/ENDOCERVICAL - COLLECTION TECHNIQUE: BRUSH/SPATULA Specimen Comment: [id number] Specimen Comment: No. of containers..01 ThinPrep Vial TYPE CODE TESTS RESULT OUT OF RANGE REFERENCE UNITS LAB L7400.0800 . Normal DIAGN Comment Result Comment: NEGATIVE FOR INTRAEPITHELIAL LESION AND MALIGNANCY. LAB L7400.0900 . Normal ADEQ Comment Result Comment: Satisfactory for evaluation. Endocervical and/or squamous metaplastic cells (endocervical component) are present. LAB L7400.1400 . Normal PERFORM Comment Result Comment: Demetrice Soares, Brush Trimming Machine Setter (ASCP) LAB L7400.2575 . Normal TEST METHOD [...] no HPV testing was performed. Performed at: [address] [id number] Car Dumper Operator Helper: Lisa Mabry MD, Phone: [phone] Performed By: #### L7400.0350 #### [facility] (refer to report for specific site) refer to report for address and phone number ALLERGIES ALLERGIES DATE TYPE / CODE NAME / CODE REACTION SEVERITY SOURCE 06/24/2018 Drug amitriptyline/F0 Unknown Unknown [place] Allergy/416 02021564(RXNORM) [facility] 935297(SNOM Repository ED CT) 06/24/2018 Drug liothyronine/F00 Unknown Unknown [place] [facility] Allergy/957 0318476(RXNORM) Hospital 504853(SNOM Repository ED CT) 12/10/2017 Drug No Known Unknown [facility] Allergy/416 Allergies/S82934 Hospital 312043(SNOM 0388(RXNORM) Repository ED CT) Drug NO KNOWN [facility] Class/12176 ALLERGIES [facility] [place] 1003(SNOMED Repository CT) ENCOUNTERS ENCOUNTERS ADMIT/DISCHARGE ACCOUNT NUMBER ADMITTING ENCOUNTER LOCATION SOURCE CLASS 2018 [id number] Ambulatory [facility] ding:WOBLAB Repository 07/25/2018 [id number] [facility] ding:[facility] Repository 06/24/2018 [id number] [facility] ding:LAB Repository 06/24/2018/06/24/20 [id number] Ambulatory BMSBuilding: [place] 18 [facility] Repository 06/24/2018 [id number] Ambulatory BMSBuilding: [place] [facility] Repository 06/14/2018 [id number] Ambulatory [facility] ding:LAB Repository 06/08/2018 [id number] [facility] ding:LAB.FUT Repository URE 04/22/2018 [id number] [facility] ding:LAB.FUT Repository URE 04/12/2018 [id number] Ambulatory [facility] ding:LAB Repository 03/24/2018 [id number] Ambulatory [facility] ding:LAB.FUT Repository URE 03/22/2018 [id number] [facility] ding:LAB.FUT Repository URE 01/24/2018 [id number] [facility] ding:LAB.FUT Repository URE 01/17/2018 [id number] [facility] ding:WOBLAB Repository 12/29/2017/12/31/19 [id number] Ambulatory [address] Repository 12/29/2017/12/30/19 [id number] Ambulatory [address] Repository 12/15/2017/12/16/19 [id number] Ambulatory [address] Repository 12/15/2017/12/16/19 [id number] Ambulatory [address] Repository 12/15/2017/12/17/19 [id number] Ambulatory [address] Repository 12/14/2017/12/15/19 [id number] Ambulatory [address] ding:OLAB [facility] Repository 12/10/2017/12/11/19 [id number] Emergency [address] ding:ED Repository 11/29/2017 [id number] Ambulatory [facility] ding:US Repository 11/24/2017 [id number] Ambulatory [facility] ding:LAB Repository 10/26/2017 [id number] Ambulatory [facility] ding:LABSPEC Repository PAYERS PAYERS ENCOUNTER GUARANTOR PAYER SUBSCRIBER SOURCE 2018 RAYA I [id number] Primary NOT GIVENUNK [place] Insurance:SELF PAY [place], [place] [address]Doo: Number: Effective Repository Date:2018 () 07/25/2018 RAYA I [id number] [facility] RAYA I YODERDOB: [place] PACKAGE [facility] [id number] Number: [place], [place] [address]Hvz: [id number] Repository Date:2018-06-24 () 07/25/2018 Secondary NOT GIVENUNK [place] Insurance:SELF PAY [facility] Number: Effective Repository Date:2018-06-24 06/24/2018 RAYA I [id number] Primary RAYA I YODERDOB: [place] Insurance:TEMPLE [id number], [place] [address]Rin: GROUPPolicy Number: Repository [id number] () Date: [address] [place] [address]HF: 06/24/2018 Secondary NOT GIVENUNK [place] Insurance:SELF PAY [facility] Number: Effective Repository Date:2018-06-24 06/24/2018 RAYA I [id number] Primary NOT GIVENUNK [place] Insurance:SELF PAY [place], [place] [address]Dno: Number: Effective Repository Date:2018-06-24 () 06/24/2018 RAYA I [id number] Primary RAYA I YODERDOB: [place] Insurance:TEMPLE [id number] Number: [place], [place] [address]Gdj: [id number] Repository Date:2018-06-24 () 06/24/2018 Secondary NOT GIVENUNK [place] Insurance:SELF PAY [facility] Number: Effective Repository Date:2018-06-24 06/14/2018 RAYA I [id number] Primary RAYA I YODERDOB: [place] Insurance:TEMPLE [id number] Number: [place], [place] [address]Igb: [id number] Repository Date:2018-06-14 () 06/14/2018 Secondary NOT GIVENUNK [place] Insurance:SELF PAY [facility] Number: Effective Repository Date:2018-06-14 06/08/2018 RAYA I [id number] Primary RAYA I YODERDOB: [place] Insurance:TEMPLE [id number], [place] [address]Tbw: GROUPPolicy Number: Repository [id number] () Date: [address] [address]MM: 06/08/2018 Secondary NOT GIVENUNK [place] Insurance:SELF PAY [facility] Number: Effective Repository Date:2018-05-31 04/22/2018 RAYA I [id number] Primary RAYA I YODERDOB: [place] Insurance:TEMPLE [id number] [facility] , [place] [address]Geu: GROUPPolicy Number: Repository [id number] (HP) Date: [address] [address]WH: 04/22/2018 Secondary NOT GIVENUNK [place] Insurance:SELF PAY [facility] Number: Effective Repository Date:2018-04-21 04/12/2018 RAYA I [id number] Primary RAYA I YODERDOB: [place] Insurance:TEMPLE [id number] Memorial [facility] , [place] [address]Mrl: GROUPPolicy Number: Repository [id number] (HP) Date: [address] [address]YM: 04/12/2018 Secondary NOT GIVENUNK [place] Insurance:SELF PAY [facility] Number: Effective Repository Date:2018-04-12 03/24/2018 RAYA I [id number] Primary RAYA I YODERDOB: [place] Insurance:TEMPLE [id number] Jewish Health , [place] [address]Prd: GROUPPolicy Number: Repository [id number] (HP) Date: [address] [address]DI: 03/24/2018 Secondary NOT GIVENUNK [place] Insurance:SELF PAY [facility] Number: Effective Repository Date:2018-03-23 03/22/2018 RAYA I [id number] Primary RAYA I YODERDOB: [place] Insurance:TEMPLE [id number], [place] [address]Vao: GROUPPolicy Number: Repository [id number] (HP) Date: [address] [address]HZ: 03/22/2018 Secondary NOT GIVENUNK [place] Insurance:SELF PAY [facility] Number: Effective Repository Date:2018-03-21 01/24/2018 RAYA I [id number] Primary RAYA I YODERDOB: [place] Insurance:TEMPLE [id number], [place] [address]Cqu: GROUPPolicy Number: Repository [id number] (HP) Date: [address] [address]FN: 01/24/2018 Secondary NOT GIVENUNK [place] Insurance:SELF PAY [facility] Number: Effective Repository Date:2018-01-24 01/17/2018 RAYA I [id number] Primary RAYA I YODERDOB: [place] Insurance:TEMPLE [id number], [place] [address]Svk: GROUPPolicy Number: Repository [id number] () Date: [address] [address]XQ: 01/17/2018 Secondary NOT GIVENUNK [place] Insurance:SELF PAY [facility] Number: Effective Repository Date:2018-01-17 12/14/2017 RAYA YODERDOB: Primary RAYA YODERDOB: [facility] Insurance:SELF [id number] [facility] Number: [address] Repository [place], [place] [address]Tcc: Date:2017-12-14 [place] [address]Uks: [id number] Name: (HP) (HP) () 12/10/2017 RAYA I [id number] Primary RAYA I YODERDOB: [place] Insurance:TEMPLE [id number] Memorial [facility] Hospital , [place] [address]Dwg: GROUPPolicy Number: Repository [id number] (HP) Date: [address] [address]CL: 12/10/2017 Secondary NOT GIVENUNK [place] Insurance:SELF PAY [facility] Number: Effective Repository Date:2017-12-10 11/29/2017 RAYA I [id number] Primary [facility] RAYA I YODERDOB: [place] [facility]ACKAGE [facility] [id number] [facility] Number: Effective [place], [place] [address]Hxa: Date:2017-11-26 Repository (HP) 11/29/2017 Secondary NOT GIVENUNK [place] Insurance:SELF PAY [facility] Number: Effective Repository Date:2017-11-26 11/24/2017 RAYA I [id number] Primary RAYA I YODERDOB: [place] Insurance:TEMPLE [id number], [place] [address]Sgv: GROUPPolicy Number: Repository [phone] [id number] (HP) Date: [address] [address]IM: 11/24/2017 Secondary NOT GIVENUNK [place] Insurance:SELF PAY [facility] Number: Effective Repository Date:2017-11-24 10/26/2017 RAYA I [id number] Primary RAYA I YODERDOB: [place] Insurance:TEMPLE [id number], [place] [address]Jbz: GROUPPolicy Number: Repository [id number] (HP) Date: [address] [address]WN: 10/26/2017 Secondary NOT GIVENUNK [place] Insurance:SELF PAY [facility] Number: Effective Repository Date:2017-10-26
== END ==
PROVIDERS: Referring Provider Internal Medicine Cardiovascular Disease; Visit Provider Internal Medicine Cardiovascular Disease
DX: R06.09 Other forms of dyspnea (principal)
CPT/HCPCS: 36415; 83880; 84436; 84443

== ENCOUNTER → 2018-07-25 12:17 | Outpatient (CLI) | payer SELFPAY ==
[2018-06-24 13:41] VITALS: BMI 37.8
--- NOTE | 2018-07-25 12:22 | ECHOCS_ITS ---
Reason For Study: DYSPNEA/SOB Procedure This was a 2D Doppler, Color Flow transthoracic echocardiogram. The study was technically difficult. Due to body habitus. Contrast injection was performed. Exam performed in department. Left Ventricle Normal LV size. Left ventricular systolic function is normal. The estimated ejection fraction is 55 %. Stage 1 diastolic dysfunction. No regional wall motion abnormalities noted. Right Ventricle Normal RV size. Normal systolic function. Atria Normal left atrium. Normal right atrium. Mitral Valve Mitral valve not well visualized. Tricuspid Valve The tricuspid valve is not well visualized. Mild tricuspid valve insufficiency. Pulmonary artery systolic pressure is 25 mmHg. Aortic Valve The aortic valve is not well visualized. Pulmonic Valve The pulmonic valve is not well visualized. Great Vessels Normal aortic root. The pulmonary artery is normal size. Normal inferior vena cava. Pericardium/Pleural No pericardial effusion. Medication 22 gauge I.V. with prn adaptor inserted into right arm. Diluted definity 0.2ml given slow IV push to enhance endocardial definition. MMode/2D Measurements & Calculations LVIDd: 5.0 cm IVSd: 0.91 cm Ao root diam: 2.7 cm LVIDs: 3.3 cm LVPWd: 1.1 cm RVDd: 3.1 cm FS: 35.1 % LAV(MOD-bp): 57.5 ml LA A4 area: 19.0 cm2 LA dimension(2D): 3.4 cm LAV(MOD-bp) Indexed: 29.3 ml/m2 LAV(MOD-sp2): 54.0 ml LAV(MOD-sp4): 54.8 ml RA A4 area: 13.5 cm2 Doppler Measurements & Calculations MV E max raudel: 67.2 cm/sec Lat Peak E' Raudel: 10.6 cm/sec Med Peak E' Raudel: 9.1 cm/sec MV A max raudel: 78.2 cm/sec E/E' lat: 6.3 E/E' med: 7.4 MV E/A: 0.86 Ao V2 max: 132.2 cm/sec LV V1 max: 86.2 cm/sec PA V2 max: 88.3 cm/sec Ao max P.0 mmHg LV V1 max P.0 mmHg TR max raudel: 233.8 cm/sec TR max P.9 mmHg Interpretation Summary Normal LV size. Left ventricular systolic function is normal. The estimated ejection fraction is 55 %. Stage 1 diastolic dysfunction. The study was technically difficult. Contrast injection was performed. Ordering Physician: Dennis Chamorro Referring Physician: Scott Kurtz Performed By: Alma Villalobos, RUBINCS, RVT
== END ==
PROVIDERS: Referring Provider Internal Medicine Cardiovascular Disease; Visit Provider Internal Medicine Cardiovascular Disease
DX: R06.09 Other forms of dyspnea (principal)
CPT/HCPCS: 93306; Q9957; A4216; C8929

== ENCOUNTER → 2018-08-01 13:40 | Outpatient (CLI) | payer SELFPAY ==
[2018-06-24 13:41] VITALS: BMI 37.8
[2018-08-01 16:17] LABS: hCG Titer Quant., Serum 1 mIU/mL (<9 non-preg)
--- OUTSIDE RECORDS SUMMARY | 2018-10-04 01:40 | XMS RPT_ITS ---
:1975 Author Organization OHIP Support Name Relationship Address Phone UE Unavailable Unavailable Unavailable GOODTONI BETANCOURTE Unavailable [address] + [place] [address] UE Unavailable Unavailable Unavailable GOODPATRIA BETANCOURT Unavailable [address] + [place] [address] UE Unavailable Unavailable Unavailable GOODTONI BETANCOURTE Unavailable [address] + [place] [address] UE Unavailable Unavailable Unavailable GOODTONIE Unavailable [address] + [place] [address] UE Unavailable Unavailable Unavailable GOODTONI BETANCOURTE Unavailable [address] + [place] [address] UE Unavailable Unavailable Unavailable GOODTONI BETANCOURTE Unavailable [address] + [place] [address] UE Unavailable Unavailable Unavailable GOODTONI BETANCOURTE Unavailable [address] + [place] [address] UE Unavailable Unavailable Unavailable GOOD PATRIA Unavailable [address] + [place] [address] UE Unavailable Unavailable Unavailable GOODTONIE Unavailable [address] + [place] [address] UE Unavailable Unavailable Unavailable GOOD PATRIA Unavailable [address] + [place] [address] UE Unavailable Unavailable Unavailable GOOD PATRIA Unavailable [address] + [place] [address] UE Unavailable Unavailable Unavailable GOOD PATRIA Unavailable [address] + [place] [address] UE Unavailable Unavailable Unavailable GOOD, PATRIA Unavailable [address] + [place] [address] UE Unavailable Unavailable Unavailable GOOD, PATRIA Unavailable [address] + [place] [address] UE Unavailable Unavailable Unavailable GOOD, PATRIA Unavailable [address] [phone] [place] [address] UE Unavailable Unavailable Unavailable GOOD, PATRIA Unavailable [address] [phone] [place] [address] UE Unavailable Unavailable Unavailable GOOD, PATRIA Unavailable [address] [phone] [place] [address] Care Team Providers Name Role Phone MARV LOUIE, DR. GEORGES Attending Unavailable MARV LOUIE, DR. GEORGES Primary Care Unavailable FANNINGCONCEPCION Referring Unavailable FANNING, CONCEPCION Oconnor Referring Unavailable FANNING, CONCEPCION Oconnor Attending Unavailable BERESESCOTT MATTANEY Referring Unavailable FANNING, CONCEPCION Oconnor Referring Unavailable FANNING, CONCEPCION Oconnor Attending Unavailable FANNING, CONCEPCION Oconnor Referring Unavailable Connie Haque Attending Unavailable Dennis Chamorro Attending Unavailable SCOTT KURTZ Referring Unavailable Lindsey Whaley Attending Unavailable Skip Sahu Primary Care Unavailable Lindsey Whaley Referring Unavailable Dennis Chamorro Attending Unavailable Dennis Chamorro Referring Unavailable SCOTT KURTZ Primary Care Unavailable Denzel Huddleston Attending Unavailable Denzel Huddleston Referring Unavailable SCOTT KURTZ Primary Care Unavailable Lindsey Whaley Attending Unavailable SCOTT KURTZ Primary Care Unavailable Skip Sahu Primary Care Unavailable SCOTT KURTZ Attending Unavailable SCOTT KURTZ Referring Unavailable SCOTT KURTZ Attending Unavailable SCOTT KURTZ Referring Unavailable Skip Sahu Primary Care Unavailable Sanjuana Branch Attending Unavailable SCOTT KURTZ Primary Care Unavailable Lindsey Whaley Attending Unavailable Lindsey Whaley Attending Unavailable SCOTT KURTZ Primary Care Unavailable SCOTT KURTZ Attending Unavailable SCOTT KURTZ Primary Care Unavailable SCOTT KURTZ Referring Unavailable SCOTT KURTZ Attending Unavailable SCOTT KURTZ Primary Care Unavailable SCOTT KURTZ Referring Unavailable SHAHEEN ELIAS Attending Unavailable SHAHEEN ELIAS Referring Unavailable RESPAXTON, SCOTT Primary Care Unavailable RESELENI, SCOTT Consulting Unavailable SHAHEEN ELIAS Attending Unavailable RESSEPAXTON, SCOTT Primary Care Unavailable SHAHEEN ELIAS Referring Unavailable RESSEPAXTON, SCOTT Attending Unavailable RESSEPAXTON, SCOTT Primary Care Unavailable RESSEGER, SCOTT Referring Unavailable RESSEGER, SCOTT Attending Unavailable RESSEGER, SCOTT Referring Unavailable RESSEGER, SCOTT Primary Care Unavailable PROBLEMS PROBLEMS DATE TYPE CONDITION / CODE ATTENDING STATUS SOURCE 07/25/2018 Unknown R06.09 - Other Denzel Huddleston Active [place] forms of dyspnea / Community R06.09(ICD-10) Hospital Repository 06/16/2018 Unknown E03.9 - RESSEGER, Active [place] Hypothyroidism, 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, [facility] unspecified / Hospital E55.9(ICD-10) Repository 01/17/2018 Unknown O20.0 - Threatened Lindsey Whaley Active [place] / Community O20.0(ICD-10) Hospital Repository 01/17/2018 Unknown N91.2 - Lindsey Whaley Active [place] Amenorrhea, Community unspecified / Hospital N91.2(ICD-10) Repository 12/15/2017 Active Other pancytopenia NA Active [facility] / D61.818(ICD-10) Main [place] Repository 04/18/2018 Unknown Z03.89 - Encounter Luli Branchus Active [place] for observation Community for other Hospital suspected diseases Repository and conditions ruled out / Z03.89(ICD-10) 10/27/2017 Unknown Z12.4 - Encounter Lindsey Whaley Active [place] for screening for Community malignant neoplasm [facility] / Repository Z12.4(ICD-10) PROCEDURES PROCEDURES No Procedure Records FoundRESULTS RESULTS HCG TITER QUANT., Collected: 2018 Status: F Source: [place] SERUM 1:42 PM [facility] REPOSITORY TYPE CODE TESTS RESULT OUT OF RANGE REFERENCE UNITS LAB L700.8000 <9 non-preg mIU/mL Normal HCG 1 QUANT. Performed By: #### L700.8000 #### [facility] [address] [place], [address] ECHO, COMPLETE W/ Observed: 07/25/2018 Status: F Source: [place] CONTRAST 5:42 PM [facility] REPOSITORY [facility] [address] [place] [address] Echo Complete W/ Contrast 07/25/18 1257 MR#: [id number] Acct: [id number] Name: RAYA GOOD I Rep #: [id number] : 1975 42 From: Dennis Chamorro MD [...] Date Dictated: 07/25/18 1257 Date Transcribed: 07/25/181740 Operator Maintainer: Signed T4 TOTAL, THYROXIN Collected: 06/24/2018 Status: F Source: [place] 3:04 PM [facility] REPOSITORY TYPE CODE TESTS RESULT OUT OF RANGE REFERENCE UNITS LAB L501.9310 4.8-13.9 ug/dL T4 Normal THYROXIN 11.6 Performed By: #### L501.9310, L501.9520 #### [facility] [address] [place], [address] THYROID STIM HORMONE Collected: 06/24/2018 Status: F Source: [place] (TSH) 3:04 PM [facility] REPOSITORY TYPE CODE TESTS RESULT OUT OF RANGE REFERENCE UNITS LAB L501.9520 0.358-3.74 uIU/mL Low TSH 0.01 Performed By: #### L501.9310, L501.9520 #### [facility] [address] [place], [address] BNP,B-TYPE NATRIURETIC Collected: 06/24/2018 Status: F Source: [place] PEPTIDE 3:04 PM [facility] REPOSITORY TYPE CODE TESTS RESULT OUT OF RANGE REFERENCE UNITS LAB L503.6620 0-100 pg/mL Normal B-TYPE 3.4 STORMY PEP Performed By: #### L503.6620 #### [facility] [address] [place], [address] CARDIOLOGY VISIT Observed: 06/24/2018 Status: F Source: [place] REPORT 2:08 PM [facility] REPOSITORY [facility] [address] [place] [address] OFFICE VISIT Date of Service: 06/24/18 MR#: [id number] Acct: [id number] Name: RAYA GOOD I Rep #: [id number] : 1975 Provider: Dennis Chamorro MD Age/Sex: 42/F Location: [facility] Status: Signed HPI HPI Chief Complaint: [...] used to be before. She is on [place] Thyroid at this time. Her physical exam demonstrates clear lung vargas regular rate and rhythm no pedal edema is noted. Her blood pressure is under good control. Intake Vital Signs06/24/18 Height 5 ft 2 in Intake Visit Reasons: pcp referred Allergies amitriptyline Adverse Reaction (Verified 06/24/18 13:26) Unknown liothyronine [From Cytomel] Adverse Reaction (Verified 06/24/18 13:26) Unknown Medications Thyroid,Pork [[place] Thyroid] 180 mg PO DAILY 06/09/17 [History [...] MD Cosigner Signature: Date (if applicable) CC: SCTOT KURTZ 12 LEAD EKG PERFORMED Observed: 06/24/2018 Status: F Source: [place] BY [facility] 2:07 PM [facility] REPOSITORY [address] [address] 12 Lead EKG performed by [facility] 06/24/18 140 MR#: [id number] Acct: [id number] Name: RAYA GOOD I Rep #: [id number] : 1975 42 From: Dennis Chamorro MD Attending Dr: Dennis Chamorro MD Status: DEP AMB Ordering Dr: Dennis Chamorro MD Date: 06/24/18 Location: [facility] Sex: F C Admitted: [facility]/12 Lead EKG performed by [facility] ECG Report Interpretation Sinus Rhythm WITHIN NORMAL LIMITSElectronically signed on 08/02/2018 at 16:35 by Dennis Chamorro [email or web address] Software Version [id number] 08/02/18 1645 Date Dennis Chamorro MD CC: SCOTT KURTZ Date Dictated: 06/24/181403 Date Transcribed: 12/14/18 1404 Operator Maintainer: CO Signed URINALYSIS, ROUTINE Collected: 06/14/2018 Status: F Source: RE[place] (DIPSTICK) 10:04 AM [facility] REPOSITORY Order Comment: How was Urine Obtained? [...] ESTERASE Negative Performed By: #### L400.2010 #### [facility] [address] [place], [address] CBC W/DIFF, AUTOMATED Collected: 06/14/2018 Status: F Source: [place] 10:04 AM [facility] REPOSITORY TYPE CODE TESTS RESULT OUT OF [...] Lymph 2.08 Performed By: #### L100.0100 #### [facility] [address] [facility] [place], [address] HEMOGLOBIN A1C Collected: 06/14/2018 Status: F Source: [place] 10:04 [facility] REPOSITORY TYPE CODE TESTS RESULT OUT OF RANGE REFERENCE UNITS LAB L501.9985 4.2-6.3 % Normal HGB A1C 5.3 Performed By: #### L501.9985 #### [facility] [address] [facility] [place], [address] SERUM CREATININE AND Collected: 06/14/2018 Status: F Source: [place] GFR 10:04 [facility] REPOSITORY TYPE CODE TESTS RESULT OUT OF [...] Calc Performed By: #### L501.1105, L501.5200, L501.5294, L501.78976 #### [facility] [address] [place], [address] MAGNESIUM Collected: 06/14/2018 Status: F Source: [place] 10:04 AM [facility] REPOSITORY TYPE CODE TESTS RESULT OUT OF RANGE REFERENCE UNITS LAB L501.5200 1.6-2.6 mg/dL Normal MG 1.9 Performed By: #### L501.1105, L501.5200, L501.5294, L501.25199 #### [facility] [address] [place], [address] ELECTROLYTE PANEL Collected: 06/14/2018 Status: F Source: [place] 10:04 AM [facility] REPOSITORY TYPE CODE TESTS RESULT OUT OF RANGE REFERENCE UNITS LAB L501.5300 136-145 mmol/L Normal NA 140 LAB L501.5600 3.5-5.1 mmol/L Normal K 4.0 LAB L501.5900 98-107 mmol/L Normal CL 106 LAB L501.6100 21.0-32.0 mmol/L Normal CO2 23.0 LAB L501.6200 5-15 Normal GAP 11 Performed By: #### L501.1105, L501.5200, L501.5294, L501.90377 #### [facility] [address] [place], [address] FREE T3 Collected: 06/14/2018 Status: F Source: [place] 10:04 AM [facility] REPOSITORY TYPE CODE TESTS RESULT OUT OF RANGE REFERENCE UNITS LAB L501.21786 2.18-3.98 pg/mL Normal FREE T3 3.8 Performed By: #### L501.1105, L501.5200, L501.5294, L501.48068 #### [facility] [address] [place], [address] CALCIUM,TOTAL Collected: 06/08/2018 Status: F Source: RE[place] 9:32 AM [facility] REPOSITORY Order Comment: Comments: [id number] IODINE ROYAL BLUE RT PLASMA TYPE CODE TESTS RESULT OUT OF RANGE REFERENCE UNITS LAB L501.2200 8.5-10.1 mg/dL Normal CA 9.2 Performed By: #### L501.2200, L501.61266 #### [facility] [address] [place], [address] FREE T3 Collected: 06/08/2018 Status: F Source: RE[place]O 9:32 AM [facility] REPOSITORY Order Comment: Comments: [id number] IODINE ROYAL BLUE RT PLASMA TYPE CODE TESTS RESULT OUT OF RANGE REFERENCE UNITS LAB L501.22599 2.18-3.98 pg/mL High FREE T3 5.2 Performed By: #### L501.2200, L501.89824 #### [facility] [address] [place], [address] VITAMIN D,25 HYDROXY Collected: 06/08/2018 Status: F Source: [place] 9:32 AM [facility] REPOSITORY TYPE CODE TESTS RESULT OUT OF RANGE REFERENCE UNITS LAB L506.1000 29.95-100.01 ng/mL Normal Vitamin D 38.1 25-OH Result Comment: Vitamin D 25(OH) Status Range Deficiency <20 ng/mL (50nmol/L) Insuffciency 20 - 30 ng/mL (50 - 75 nmol/L) Sufficiency 30 - 100 ng/mL (75 - 250 nmol/L) Toxicity >100 ng/mL (>250 nmol/L) Performed By: #### L506.1000 #### [facility] [address] [place], [address] MISCELLANEOUS LAB Collected: 06/08/2018 Status: F Source: [place] PROCEDURE 9:32 AM [facility] REPOSITORY Order Comment: Comments: [id number] IODINE ROYAL BLUE RT PLASMA Test(s) Ordered: [id number] IODINE ROYAL BLUE RT PLASMA TYPE CODE TESTS RESULT OUT OF RANGE REFERENCE UNITS LAB L801.1541 Normal [facility] LAB TEST Result Comment: TEST RESULT UNITS REFERENCE INTERVAL IODINE, SERUM OR PLASMA 47.3 ug/L 40.0 - 92.0 limit of quantitation = 20 TESTING PERFORMED AT [facility]. ORIGINAL REPORT ON FILE IN LAB CONTAINS ADDITIONAL TEST SITE INFORMATION. Performed By: #### L801.1541 #### [facility] [address] [place], [address] CALCIUM,TOTAL Collected: 04/22/2018 Status: F Source: RE[place] 12:39 PM [facility] REPOSITORY TYPE CODE TESTS RESULT OUT OF RANGE REFERENCE UNITS LAB L501.2200 8.5-10.1 mg/dL Normal CA 8.6 Performed By: #### L501.2200 #### [facility] [address] [place], [address] PTHIN Collected: 04/22/2018 Status: F Source: [place] 12:39 PM [facility] REPOSITORY TYPE CODE TESTS RESULT OUT OF RANGE REFERENCE UNITS LAB L509.1000 18.4-80.1 pg/mL High PTHIN 165.3 Performed By: #### L509.1000 #### [facility] [address] [place], [address] CALCIUM IONIZED Collected: 04/22/2018 Status: F Source: [place] 12:39 PM [facility] REPOSITORY TYPE CODE TESTS RESULT OUT OF RANGE REFERENCE UNITS LAB L3100.9600 4.5-5.6 mg/dL Normal IONIZED CA 5.2 Result Comment: Performed at: - [facility] [id number] Cook Manager: Jose Harrell PhD, Phone: [phone] Performed By: #### L3100.9600 #### [facility] (refer to report for specific site) refer to report for address and phone number CALCIUM,TOTAL Collected: 04/12/2018 Status: F Source: [place] 3:33 PM [facility] REPOSITORY Order Comment: WANTS THE CA WANTS THE CA VITD PTH IONIZED CA TYPE CODE TESTS RESULT OUT OF RANGE REFERENCE UNITS LAB L501.2200 8.5-10.1 mg/dL Normal CA 9.1 Performed By: #### L501.2200 #### [facility] [address] [facility] [place], [place], [address] PTHIN Collected: 04/12/2018 Status: F Source: [place] 3:33 PM [facility] REPOSITORY Order Comment: WANTS THE CA WANTS THE CA VITD PTH IONIZED CA TYPE CODE TESTS RESULT OUT OF RANGE REFERENCE UNITS LAB L509.1000 18.4-80.1 pg/mL Normal PTHIN 63.9 Performed By: #### L509.1000 #### [facility] [place], [place], [id number] VITAMIN D,25 HYDROXY Collected: 04/12/2018 Status: F Source: [place] 3:33 PM [facility] REPOSITORY Order Comment: WANTS THE CA WANTS [...] (>250 nmol/L) Performed By: #### L506.1000 #### [facility] [place], [place], [address] CALCIUM IONIZED Collected: 04/12/2018 Status: F Source: [place] 3:33 PM [facility] REPOSITORY Order Comment: WANTS THE CA WANTS THE CA VITD PTH IONIZED CA TYPE CODE TESTS RESULT OUT OF RANGE REFERENCE UNITS LAB L3100.9600 4.5-5.6 mg/dL Normal IONIZED CA 5.4 Result Comment: Performed at: [address] [id number] Cook Manager: Jose Harrell PhD, Phone: [phone] Performed By: #### L3100.9600 #### [facility] (refer to report for specific site) refer to report for address and phone number PTHIN Collected: 03/24/2018 Status: F Source: [place] 9:16 AM [facility] REPOSITORY Order Comment: NO VRO CHARGE REDRAW TYPE CODE TESTS RESULT OUT OF RANGE REFERENCE UNITS LAB L509.1000 18.4-80.1 pg/mL High PTHIN 86.8 Performed By: #### L509.1000 #### [facility] [address] [place], [place], [address] THYROID PEROXIDASE AB Collected: 03/24/2018 Status: F Source: RE[place] 9:16 AM [facility] REPOSITORY Order Comment: NO VRO CHARGE REDRAW TYPE CODE TESTS RESULT OUT OF RANGE REFERENCE UNITS LAB L3300.6900 0-34 IU/mL Normal TPO AB 9 6676 Result Comment: Performed at: [facility] [id number] Cook Manager: Jose Harrell PhD, Phone: [phone] Performed By: #### L3300.6900 #### [facility] (refer to report for specific site) refer to report for address and phone number URINALYSIS, COMPLETE Collected: 03/22/2018 Status: F Source: [place] 3:17 PM [facility] REPOSITORY Order Comment: Comments: REFLEX CULTURE How [...] URINE RARE Performed By: #### L400.0001 #### [facility] [address] [place], [place], [address] ELECTROLYTE PANEL Collected: 03/22/2018 Status: F Source: SN[place] 3:17 PM [facility] REPOSITORY Order Comment: Comments: REFLEX CULTURE TYPE CODE TESTS RESULT OUT OF RANGE REFERENCE UNITS LAB L501.5300 136-145 mmol/L Normal NA 139 LAB L501.5600 3.5-5.1 mmol/L Normal K 3.9 LAB L501.5900 98-107 mmol/L Normal CL 105 LAB L501.6100 21.0-32.0 mmol/L Normal CO2 24.0 LAB L501.6200 5-15 Normal GAP 10 Performed By: #### L501.5294, L501.42289, L501.9520 #### [facility] [address] [facility] [place], [place], [address] FREE T3 Collected: 03/22/2018 Status: F Source: [place] 3:17 PM [facility] REPOSITORY Order Comment: Comments: REFLEX CULTURE TYPE CODE TESTS RESULT OUT OF RANGE REFERENCE UNITS LAB L501.48991 2.18-3.98 pg/mL High FREE T3 4.0 Performed By: #### L501.5294, L501.82913, L501.9520 #### [facility] [address] [facility] [place], [place], [address] THYROID STIM HORMONE Collected: 03/22/2018 Status: F Source: [place] (TSH) 3:17 PM [facility] REPOSITORY Order Comment: Comments: REFLEX CULTURE TYPE CODE TESTS RESULT OUT OF RANGE REFERENCE UNITS LAB L501.9520 0.358-3.74 uIU/mL Low TSH 0.08 Performed By: #### L501.5294, L501.43493, L501.9520 #### [facility] [address] [facility] [place], [place], [address] CBC-COMPLETE BLOOD CNT Collected: 01/24/2018 Status: F Source: [place] NO DIFF 2:34 PM [facility] REPOSITORY TYPE CODE TESTS RESULT OUT OF [...] MPV 10.4 Performed By: #### L100.0500 #### [facility] [address] [facility] [place], [place], [address] HCG TITER QUANT., Collected: 01/17/2018 Status: F Source: [place] SERUM 1:09 PM [facility] REPOSITORY TYPE CODE TESTS RESULT OUT OF RANGE REFERENCE UNITS LAB L700.8000 <9 non-preg mIU/mL High HCG 14 QUANT. Performed By: #### L700.8000 #### [facility] [address] [place], [place], [address] PROGRESS Observed: 12/29/2017 Status: COMPLETED Source: PAB[place] 2:46 PM [facility] REPOSITORY HNO ID: [id number] Author: Concepcion Diaz Service: (none) Author Type: [...] 2 units of packed red cells at [facility]. Liver function tests and chemistries were [...] MD CNOVSP Observed: 12/29/2017 Status: COMPLETED Source: [place] 2:30 PM [facility] REPOSITORY Visit (SP) Office ([place]) RAYA GOOD I ([id number]) 1975 F Date Time Provider Department 12/29/17 2:30 PM CONCEPCION DIAZ During your visit today, we recorded the following information about you: Temperature Pulse Respiration Blood pressure 97.4 degrees 78/minute 18/minute 155/89 Weight Height 92.6 kg 1.562 m Concepcion Diaz MD 12/29/2017 2:48 PM Signed [facility] Raya Guillory Latisha is a 42 year [...] 2 units of packed red cells at [facility]. Liver function tests and chemistries were [...] Concepcion Diaz MD Referring Provider: CONCEPCION DIAZ [[id number]] Allergies As of Date: 12/29/2017 (No Known [...] 12/29/17 PROGRESS Observed: 12/15/2017 Status: COMPLETED Source: [place] 3:53 PM [facility] REPOSITORY [facility] ID: [id number] Author: Concepcion Diaz Service: (none) Author Type: [...] 2 units of packed red cells at [facility]. Liver function tests and chemistries were [...] MD CNOVSP Observed: 12/15/2017 Status: COMPLETED Source: [place] 3:30 PM [facility] REPOSITORY Visit (SP) Office ([place]) RAYA GOOD I ([id number]) 1975 F Date Time Provider Department 12/15/17 [...] 2 units of packed red cells at [facility]. Liver function tests and chemistries were [...] Concepcion Diaz MD Referring Provider: SCOTT KURTZ [[id number]] Allergies As of Date: 12/15/2017 (No Known [...] RATE WESTERGREN Collected: 12/15/2017 Status: F Source: P[place] 3:21 PM [facility] REPOSITORY TYPE CODE TESTS RESULT OUT OF REFERENCE UNITS RANGE LAB WSR 0-20 mm/hr Sed Rate Westergren 13 Performed By: #### WSR, LD6, IRON, BMP, HFP, FERR, B12, SERFOL, SEPG, MMA #### [facility] [address] [place], [place] [address] LD Collected: 12/15/2017 Status: F Source: [facility] 3:21 PM [facility] REPOSITORY TYPE CODE TESTS RESULT OUT OF RANGE REFERENCE UNITS LAB LD 135-214 U/L LD 159 Performed By: #### WSR, LD6, IRON, BMP, HFP, FERR, B12, SERFOL, SEPG, MMA #### [facility] [address] [place], [place] [address] IRON AND TIBC Collected: 12/15/2017 Status: F Source: [place] 3:21 PM [facility] REPOSITORY TYPE CODE TESTS RESULT OUT OF REFERENCE UNITS RANGE LAB IRN 41-186 ug/dL Iron 65 LAB TIBC 232-386 ug/dL TIBC 291 LAB SAT 15-57 % Transferrin Saturatn 22 Performed By: #### WSR, LD6, IRON, BMP, HFP, FERR, B12, SERFOL, SEPG, MMA #### [facility] [address] [place], [place] [address] BASIC METABOLIC PANL Collected: 12/15/2017 Status: F Source: [place] 3:21 PM [facility] REPOSITORY TYPE CODE TESTS RESULT OUT OF REFERENCE UNITS RANGE LAB GLU 74-99 mg/dL Glucose 81 Result Comment: The [place] [employer] (ADA) provides guidance for cutoff [...] Standards of Medical Care in Diabetes 2016, [place] [employer]. Diabetes Care. 2016.39(Suppl 1). LAB [...] HFP, FERR, B12, SERFOL, SEPG, MMA #### [facility] [address] [place] [address] HEPATIC FUNCTN PANEL Collected: 12/15/2017 Status: F Source: P[place] 3:21 PM [facility] REPOSITORY TYPE CODE TESTS [...] HFP, FERR, B12, SERFOL, SEPG, MMA #### [facility] [address] [place] [address] FERRITIN Collected: 12/15/2017 Status: F Source: P[place] 3:21 PM [facility] REPOSITORY TYPE CODE TESTS RESULT OUT OF REFERENCE UNITS RANGE LAB FERR 14.7-205.1 ng/mL Ferritin 57.3 Performed By: #### WSR, LD6, IRON, BMP, HFP, FERR, B12, SERFOL, SEPG, MMA #### [place] [address] VITAMIN B12 Collected: 12/15/2017 Status: F Source: PABLO 3:21 [facility] REPOSITORY TYPE CODE TESTS RESULT OUT OF REFERENCE UNITS RANGE LAB B12 232-1245 pg/mL Vitamin B12 449 Performed By: #### WSR, LD6, IRON, BMP, HFP, FERR, B12, SERFOL, SEPG, MMA #### [place] [address] FOLATE, SERUM Collected: 12/15/2017 Status: F Source: PABLO 3:21 PM [facility] REPOSITORY TYPE CODE TESTS RESULT OUT OF REFERENCE UNITS RANGE LAB SERFOL >4.7 ng/mL Folate, 14.9 Serum Performed By: #### WSR, LD6, IRON, BMP, HFP, FERR, B12, SERFOL, SEPG, MMA #### [place] [address] PROTEIN ELECTROPHOR. Collected: 12/15/2017 Status: F Source: PABLO 3:21 PM [facility] REPOSITORY TYPE CODE TESTS RESULT OUT [...] Staff Review Reviewed by Deandra Pearce MD ([id number]) Performed By: #### WSR, LD6, IRON, BMP, HFP, FERR, B12, SERFOL, SEPG, MMA #### [facility] [address] [place], [place] [id number] METHYLMALONIC ACID Collected: 12/15/2017 Status: F Source: PABLO 3:21 PM [facility] REPOSITORY TYPE CODE TESTS RESULT OUT OF REFERENCE UNITS RANGE LAB MMA 79-376 nmol/L Methylmalonic Acid 188 Result Comment: This test was developed and its performance characteristics determined by [facility]'s [facility] Pathology and Laboratory Medicine [facility] (-PLMI). It has not been cleared or approved by the FDA. -[facility] is regulated under CLIA as qualified to perform high-complexity testing. This test is used for clinical purposes. It should not be regarded as investigational or for research. Performed By: #### WSR, LD6, IRON, BMP, HFP, FERR, B12, SERFOL, SEPG, MMA #### [facility] [employer] [address] [place], [place] [id number] REMOTE ABS GRAN + Collected: 12/15/2017 Status: F Source: PABLO CBC (FOR [facility] USE 3:20 PM [facility] ONLY) REPOSITORY TYPE CODE TESTS RESULT [...] 7.84 CBC Collected: 12/14/2017 Status: C Source: [facility] 11:42 AM [facility] REPOSITORY TYPE CODE TESTS RESULT OUT OF [...] to Platelete clump. Recollect specimen. Called result @[phone] LAB MPV(LOINC) 7.4-10.4 fL MPV 8.1 Performed By: #### CBC, ADRAYMOND, ANEU, FE #### [place] [id number] .AUTO DIFF Collected: 12/14/2017 Status: F Source: [facility] 11:42 AM [facility] REPOSITORY TYPE CODE TESTS RESULT OUT OF [...] By: #### CBC, ADIFF, ANEU, FE #### [place] [address] .NEUABS Collected: 12/14/2017 Status: F Source: [facility] 11:42 [facility] REPOSITORY TYPE CODE TESTS RESULT OUT OF REFERENCE UNITS RANGE LAB ANEU(LOINC) 2.85-6.16 10 3/mcL Neutrophil, 5.90 Absolute Performed By: #### CBC, ADIFF, ANEU, FE #### [address] [address] FE Collected: 12/14/2017 Status: F Source: [facility] 11:42 [facility] REPOSITORY TYPE CODE TESTS RESULT OUT OF RANGE REFERENCE UNITS LAB FE(LOINC) 65-170 mcg/dL Iron 90 Performed By: #### CBC, ADIFF, ANEU, FE #### [place] [address] UA Collected: 12/14/2017 Status: F Source: [facility] 11:42 [facility] REPOSITORY TYPE CODE TESTS RESULT OUT [...] Performed By: #### UA, UAMICAO #### [place] [address] [place], [place] [address] .URINALYSIS MICROSCOPIC Collected: 12/14/2017 Status: F Source: TIARA (FROILAN) 11:42 AM [facility] REPOSITORY TYPE CODE TESTS RESULT OUT OF RANGE REFERENCE UNITS LAB WBCUA(LOIN None Seen /hpf C) Unknown UA WBC 0-5 LAB RBCUA(LOIN None Seen /hpf C) Unknown UA RBC 0-5 LAB EPIUA(LOIN None Seen /hpf C) Unknown UA Squam Epithelial 0-5 Performed By: #### UA, UAMICAO #### [place] [address] [address] EMERGENCY DEPARTMENT Observed: 12/10/2017 Status: F Source: [place] SUMMARY 4:44 PM [facility] REPOSITORY [facility] Medical Records Department [address] [place] [address] Emergency Department Summary 12/10/17 1617 MR#: [id number] Acct: [id number] Name: RAYA GOOD I Rep #: [id number] : 1975 42 From: Sanjuana Branch DO [...] abnormal labs] This note was generated with [employer] dictation software. It may contain incorrect words, [...] problems, contact your Primary Care Provider. Call [facility] ([phone]) or report to the closest Emergency Room. Call 911 if necessary. 12/10/17 1623 <Electronically signed by Sanjuana Branch DO> Date Sanjuana Branch DO Cosigner Signature (If Indicated): Date CC: SCOTT KURTZ DISCHARGE INSTRUCTION Observed: 12/10/2017 Status: F Source: [place] 4:24 PM [facility] REPOSITORY [facility] Medical Records Department [address] [place] [address] Discharge Instruction 12/10/17 1623 MR#: [id number] Acct: [id number] Name: RAYA GOOD I Rep #: [id number] : 1975 42 From: Sanjuana Branch DO [...] problems, contact your Primary Care Provider. Call [facility] ([phone]) or report to the closest Emergency Room. Call 911 if necessary. 12/10/17 1624 <Electronically signed by Sanjuana Branch DO> Date Sanjuana Branch DO Cosigner Signature (If Indicated): Date CC: SCOTT KURTZ URINALYSIS, COMPLETE Collected: 12/10/2017 Status: F Source: [place] 3:15 PM [facility] REPOSITORY Order Comment: Order Date: 12/10/17 Has pt arrived? Y How was Urine Obtained? HEEL PACKER TO SPECIFY TYPE CODE TESTS RESULT OUT [...] URINE SEEN Performed By: #### L400.0001 #### [facility] [address] [place], [place], [address] BASIC METABOLIC Collected: 12/10/2017 Status: F Source: [place] PROFILE (BMP) 2:04 PM [facility] REPOSITORY TYPE CODE TESTS RESULT OUT OF [...] Normal 7 Performed By: #### L500.2500 #### [facility] [address] [facility] [place], [address] TYPE AND SCREEN Collected: 12/10/2017 Status: F Source: [place] 2:04 PM [facility] REPOSITORY Order Comment: Reason for Type AND Screen/Red Cells: ANEMIA TYPE CODE TESTS RESULT OUT OF RANGE REFERENCE UNITS LAB B10.0800 A Normal BLOOD TYPE GEL POSITIVE LAB B100.4000 Normal Antibody NEGATIVE Screen Performed By: #### B101.7450 #### [facility] [address] [facility] [place], [place], [address] PLATELET COUNT Collected: 12/10/2017 Status: F Source: [place] 2:04 PM [facility] REPOSITORY Order Comment: RAN ON NA CITRATE TUBE PER DR SEGURA TYPE CODE TESTS RESULT OUT OF RANGE REFERENCE UNITS LAB L100.1900 150-450 K/mm3 Normal PLT 207 Performed By: #### L100.1900 #### [place] [facility] [address] [place], [address] CBC W/DIFF, AUTOMATED Collected: 12/10/2017 Status: F Source: [place] 1:58 PM [facility] REPOSITORY TYPE CODE TESTS RESULT OUT OF [...] Lymph 2.28 Performed By: #### L100.0100 #### [facility] [address] [place], [address] ABDOMEN SINGLE VIEW Observed: 11/29/2017 Status: F Source: [place] 10:29 AM [facility] REPOSITORY [facility] Imaging Services [address] [place] [address] Abdomen Single View MR#: [id number] Acct: [id number] Name: RAYA GOOD I Rep #: [id number] : 1975 F 42 From: Michael Alejandro MD PCP: Skip Sahu MD Status: REG CLI Study: Abdomen Single View Date of Exam: 11/29/17 Exam# [id number] Ordering Dr: Scott Kurtz STUDY: X-RAY - ABDOMEN/PELVIS REASON FOR EXAM: Female, 42 years old. Hematuria times several months TECHNIQUE: Two AP supine views of the abdomen and pelvis. COMPARISON: None. FINDINGS: The lung bases are not included in the hknir-hf-teqp of the study. There is an unremarkable [...] , CC: SCOTT KURTZ; Skip Sahu MD Operator Maintainer: Signed KIDNEY AND BLADDER Observed: 11/29/2017 Status: F Source: [place] 9:44 AM [facility] REPOSITORY [facility] Imaging Services [address] [place] [address] Kidney and Bladder MR#: [id number] Acct: [id number] Name: RAYA GOOD I Rep #: [id number] : 1975 F 42 From: Michael Alejandro MD PCP: Skip Sahu MD Status: REG CLI Study: Kidney and Bladder Date of Exam: 11/29/17 Exam# [id number] Ordering Dr: Scott Kurtz STUDY: RENAL ULTRASOUND [...] , CC: SCOTT KURTZ; Skip Sahu MD Operator Maintainer: Signed URINALYSIS, COMPLETE Collected: 11/24/2017 Status: F Source: SNOVER 2:48 PM [facility] REPOSITORY Order Comment: How was Urine Obtained? [...] MUCUS, URINE Performed By: #### L400.0001 #### [facility] [address] [place], [address] Observed: 11/24/2017 Status: F Source: [place] CULTURE, URINE 2:48 PM [facility] REPOSITORY Urine Culture Below infection level. ORGANISM 1: Mixed Gram Positive Organisms [place] Count 1000-10,000 MIX CULTURE Mixed contaminants. Submit a new specimen if indicated. Performed By: #### M100.0650 #### [facility] [place], [address] PAP I-G W/RFX HRHPV Collected: 10/26/2017 Status: F Source: [place] 2:30 PM [facility] REPOSITORY Order Comment: CYTOLOGY INFORMATION: - CLINICAL INFORMATION: - DATE LMP/MENOPAUSE: LMP not given - COLLECTION VIAL: Thin Prep Vial - IRRIGATION EQUIPMENT MECHANIC SOURCE: CERVICAL/ENDOCERVICAL - COLLECTION TECHNIQUE: BRUSH/SPATULA Specimen Comment: [id number] Specimen Comment: No. of containers..01 ThinPrep Vial TYPE CODE TESTS RESULT OUT OF RANGE REFERENCE UNITS LAB L7400.0800 . Normal DIAGN Comment Result Comment: NEGATIVE FOR INTRAEPITHELIAL LESION AND MALIGNANCY. LAB L7400.0900 . Normal ADEQ Comment Result Comment: Satisfactory for evaluation. Endocervical and/or squamous metaplastic cells (endocervical component) are present. LAB L7400.1400 . Normal PERFORM Comment Result Comment: Demetrice Soares, Paralegal Internship (ASCP) LAB L7400.2575 . Normal TEST METHOD [...] no HPV testing was performed. Performed at: [address] [id number] Cook Manager: Lisa Mabry MD, Phone: [phone] Performed By: #### L7400.0350 #### [facility] (refer to report for specific site) refer to report for address and phone number ALLERGIES ALLERGIES DATE TYPE / CODE NAME / CODE REACTION SEVERITY SOURCE 06/24/2018 Drug amitriptyline/F0 Unknown Unknown [facility] All[facility]/416 [id number](RXNORM) [facility] 862944(SNOM Repository ED CT) 06/24/2018 Drug liothyronine/F00 Unknown Unknown [place] [facility] Allergy/095 6574700(RXNORM) Hospital 804030(SNOM Repository ED CT) 12/10/2017 Drug No Known Unknown [facility] Allergy/416 Allergies/H56764 Hospital 204758(SNOM 0388(RXNORM) Repository ED CT) Drug NO KNOWN [facility] Class/28396 ALLERGIES [facility] [place] 1003(SNOMED Repository CT) ENCOUNTERS ENCOUNTERS ADMIT/DISCHARGE ACCOUNT NUMBER ADMITTING ENCOUNTER LOCATION SOURCE CLASS 2018 [id number] Ambulatory [facility] ding:WOBLAB Repository 07/25/2018 [id number] [facility] ding:[facility] Repository 06/24/2018 [id number] [facility] ding:LAB Repository 06/24/2018/06/24/20 [id number] Ambulatory BMSBuilding: [place] [facility] BMS.[facility] Repository 06/24/2018 [id number] Ambulatory BMSBuilding: [place] BMS.[facility] Repository 06/14/2018 [id number] Ambulatory [facility] ding:LAB Repository 06/08/2018 [id number] [facility] ding:LAB.FUT Repository URE 04/22/2018 [id number] [facility] ding:LAB.FUT Repository URE 04/12/2018 [id number] Ambulatory [facility] ding:LAB Repository 03/24/2018 [id number] Ambulatory [facility] ding:LAB.FUT Repository URE 03/22/2018 [id number] [facility] ding:LAB.FUT Repository URE 01/24/2018 [id number] [facility] ding:LAB.FUT Repository URE 01/17/2018 [id number] [facility] ding:WOBLAB Repository 12/29/2017/12/31/19 [id number] Ambulatory [address] Repository 12/29/2017/12/30/19 [id number] Ambulatory [address] Repository 12/15/2017/12/16/19 [id number] Ambulatory [address] Repository 12/15/2017/12/16/19 [id number] Ambulatory [address] Repository 12/15/2017/12/17/19 [id number] Ambulatory [address] Repository 12/14/2017/12/15/19 [id number] Ambulatory [address] ding:OLAB [facility] Repository 12/10/2017/12/11/19 [id number] Emergency [address] ding:ED Repository 11/29/2017 [id number] Ambulatory [facility] ding:US Repository 11/24/2017 [id number] Ambulatory [facility] ding:LAB Repository 10/26/2017 [id number] Ambulatory [facility] ding:LABSPEC Repository PAYERS PAYERS ENCOUNTER GUARANTOR PAYER SUBSCRIBER SOURCE 2018 RAYA I [id number] Primary NOT GIVENUNK [place] Insurance:SELF PAY [place], [place] [address]Jow: Number: Effective Repository Date:2018 () 07/25/2018 RAYA I [id number] Primary Insurance:[facility] RAYA I YODERDOB: [place] PACKAGE [id number] Number: [place], [place] [address]Bun: [id number] Repository Date:2018-06-24 () 07/25/2018 Secondary NOT GIVENUNK [place] Insurance:SELF PAY [facility] Number: Effective Repository Date:2018-06-24 06/24/2018 RAYA I [id number] Primary RAYA I YODERDOB: [place] Insurance:[place] [id number] [place], [place] [address]Fnv: GROUPPolicy Number: Repository [id number] () Date: TW [address] [place] [address]UV: 06/24/2018 Secondary NOT GIVENUNK [place] Insurance:SELF PAY [facility] Number: Effective Repository Date:2018-06-24 06/24/2018 RAYA I [id number] Primary NOT GIVENUNK [place] Insurance:SELF PAY [place], [place] [address]Uxq: Number: Effective Repository Date:2018-06-24 () 06/24/2018 RAYA I [id number] Primary RAYA I YODERDOB: [place] Insurance:ZOROASTRIAN [id number] Number: [place], [place] [address]Ami: [id number] Repository Date:2018-06-24 () 06/24/2018 Secondary NOT GIVENUNK [place] Insurance:SELF PAY [facility] Number: Effective Repository Date:2018-06-24 06/14/2018 RAYA I [id number] Primary RAYA I YODERDOB: [place] Insurance:ZOROASTRIAN [id number] [facility] Number: [place], [place] [address]Oaz: [id number] Repository Date:2018-06-14 () 06/14/2018 Secondary NOT GIVENUNK [place] Insurance:SELF PAY [facility] Number: Effective Repository Date:2018-06-14 06/08/2018 RAYA I [id number] Primary RAYA I YODERDOB: [place] Insurance:[place]AN [id number] [place], [place] [address]Rpc: GROUPPolicy Number: Repository [id number] () Date: [address] [address]OO: 06/08/2018 Secondary NOT GIVENUNK [place] Insurance:SELF PAY [facility] Number: Effective Repository Date:2018-05-31 04/22/2018 RAYA I [id number] Primary RAYA I YODERDOB: [place] Insurance:ZOROASTRIAN [id number] Mental Health [facility] [place] , [place] [address]Axc: GROUPPolicy Number: Repository [id number] (HP) Date: [address] [address]PC: 04/22/2018 Secondary NOT GIVENUNK [place] Insurance:SELF PAY [facility] Number: Effective Repository Date:2018-04-21 04/12/2018 RAYA I [id number] Primary RAYA I YODERDOB: [place] Insurance:[place]RIAN [id number] Mental Health [facility] [place] , [place] [address]Fqq: GROUPPolicy Number: Repository [id number] (HP) Date: [address] [address]NZ: 04/12/2018 Secondary NOT GIVENUNK [place] Insurance:SELF PAY [facility] Number: Effective Repository Date:2018-04-12 03/24/2018 RAYA I [id number] Primary RAYA I YODERDOB: [place] Insurance:[place]ORO[place]RIAN [id number] [place] , [place] [address]Pvv: GROUPPolicy Number: Repository [id number] (HP) Date: [address] [address]ZS: 03/24/2018 Secondary NOT GIVENUNK [place] Insurance:SELF PAY [facility] Number: Effective Repository Date:2018-03-23 03/22/2018 RAYA I [id number] Primary RAYA I YODERDOB: [place] Insurance:[place] [id number], [place] [address]Kcn: GROUPPolicy Number: Repository [id number] (HP) Date: [address] [address]FK: 03/22/2018 Secondary NOT GIVENUNK [place] Insurance:SELF PAY [facility]: Effective Repository Date:2018-03-21 01/24/2018 RAYA I [id number] Primary RAYA I YODERDOB: [place] Insurance:[place]AN [id number], [place] [address]Ydb: GROUPPolicy Number: Repository [id number] (HP) Date: [address] [address]HT: 01/24/2018 Secondary NOT GIVENUNK [place] Insurance:SELF PAY [facility] Number: Effective Repository Date:2018-01-24 01/17/2018 RAYA I [id number] Primary RAYA I YODERDOB: [place] Insurance:[place]AN [id number], [place] [address]Qmh: GROUPPolicy Number: Repository [id number] () Date: [address] [address]IR: 01/17/2018 Secondary NOT GIVENUNK [place] Insurance:SELF PAY [facility] Number: Effective Repository Date:2018-01-17 12/14/2017 RAYA YODERDOB: Primary RAYA YODERDOB: [facility] Insurance:SELF [id number] [facility] [facility] Number: 5 [address] Repository [place], [place] [address]Krk: Date:2017-12-14 [place] [address]Rpn: [id number] Name: (HP) (HP) () 12/10/2017 RAYA I [id number] Primary RAYA I YODERDOB: [place] Insurance:ZOROASTRIAN [id number] Mental Health [facility] [place] , [place] [address]Cix: GROUPPolicy Number: Repository [id number] (HP) Date: T[address] [address]GR: 12/10/2017 Secondary NOT GIVENUNK [place] Insurance:SELF PAY [facility] Number: Effective Repository Date:2017-12-10 11/29/2017 RAYA I [id number] Primary Insurance:[facility] RAYA I YODERDOB: [place] [facility]AGE [facility] [id number]. [facility] Number: Effective [place], [place] [address]Vco: Date:2017-11-26 Repository (HP) 11/29/2017 Secondary NOT GIVENUNK [place] Insurance:SELF PAY [facility] Number: Effective Repository Date:2017-11-26 11/24/2017 RAYA I [id number] Primary RAYA I YODERDOB: [place] Insurance:ZOR[place]RIAN [id number], [place] [address]Sxm: GROUPPolicy Number: Repository [id number] (HP) Date: [address] [address]DI: 11/24/2017 Secondary NOT GIVENUNK [place] Insurance:SELF PAY [facility] Number: Effective Repository Date:2017-11-24 10/26/2017 RAYA I [id number] Primary RAYA I YODERDOB: [place] Insurance:ZOROASTRIAN [id number], [place] [address]Mfe: GROUPPolicy Number: Repository [id number] (HP) Date: [address] [address]LD: 10/26/2017 Secondary NOT GIVENUNK [place] Insurance:SELF PAY [facility] Number: Effective Repository Date:2017-10-26
== END ==
PROVIDERS: Visit Provider Obstetrics & Gynecology
DX: O20.0 Threatened abortion (principal); Z3A.00 Weeks of gestation of pregnancy not specified
CPT/HCPCS: 36415; 84702

== ENCOUNTER → 2018-10-06 14:28 | Outpatient (CLI) | payer OTHER, SELFPAY ==
[2018-10-06 13:18] VITALS: BMI 38.4
== END ==
PROVIDERS: Referring Provider Physician Assistant; Visit Provider Physician Assistant
DX: J02.9 Acute pharyngitis, unspecified (principal)
CPT/HCPCS: 87081

== ENCOUNTER 2018-10-07 13:38 | Emergency (ER) | payer OTHER, SELFPAY ==
[2018-10-06 13:18] VITALS: BMI 38.4
[2018-10-07 13:39] VITALS: BP 127/84; PULSE 133; RESP 16; TEMP 36.8; O2SAT 95; BMI 34.2
--- NOTE | 2018-10-07 14:49 | EKG12_ITS ---
Test Reason : DYSRHYTHMIA Blood Pressure : / mmHG Vent. Rate : 103 BPM Atrial Rate : 103 BPM P-R Int : 142 ms QRS Dur : 080 ms QT Int : 344 ms P-R-T Axes : 056 057 057 degrees QTc Int : 450 ms Sinus tachycardia Otherwise normal ECG Confirmed by URI RODRÍGUEZ, JEANNA ([id number]), newspaper managing editor GUILLAUME NIEVES ([id number]) on 10/10/2018 1:45:14 PM Referred By: Darren Max Confirmed By:JEANNA GREWAL MD
--- NOTE | 2018-10-07 14:49 | RAD_ITS ---
STUDY: X-RAY CHEST REASON FOR EXAM: Female, 43 years old. 3 day history of flulike symptoms. TECHNIQUE: Single AP portable view of the chest. COMPARISON: None. FINDINGS: There is evidence of focal infiltration in the right infrahilar region of the right lung. Follow-up is recommended. There is no demonstrated pleural abnormality. Normal size heart. Normal mediastinum and conrad. Normal visualized pulmonary arteries. Normal visualized aortic arch and descending thoracic aorta. Normal visualized thoracic spine. Normal visualized ribs, clavicles, and shoulders. There is no demonstrated abnormality of the visualized soft tissue structures of the upper abdomen. RAD/Chest 1 View (Portable) IMPRESSION: Focal right infrahilar infiltrate. Follow-up is recommended. Electronically Signed: Bubba Yin, at 15:19 EDT , Service support ,
[2018-10-07 15:25] LABS: Absolute Lymphocyte Count 1.13 X10^3/ul (0.83-4.51); Absolute Neutrophil Count 8.5 X10^3/uL (2.0-7.7); Basophil# 0.01 X10^3/uL; Basophil% 0.1 % (0-1); Hematocrit 42.9 % (37-47); Hemoglobin 14.4 g/dl (12.0-15.0); Lymphocyte # 1.13 X10^3/ul (4.0); Lymphocyte % 10.9 % (19-41); Mean Corp Hgb Conc 33.6 g/gl (32-36); Mean Corpuscular Hgb 29.8 pg (27.0-32.0); Mean Corpuscular Volume 88.6 fL (81-99); Mean Platelet Vol. 10.8 fl (6.2-12.0); Monocyte# 0.71 X10^3/uL; Monocyte% 6.9 % (0-10); Neutrophil # 8.47 X10^3/uL (2.7-7.7); Platelet Count 193 K/mm3 (150-450); RBC Distribution Width CV 12.7 % (11.6-14.6); RBC Distribution Width SD 41.2 fl (35.1-43.9); Red Blood Count 4.84 M/mm3 (4.2-5.4); White Blood Count 10.3 K/mm3 (4.4-11.0)
[2018-10-07] MEDS: Ketorolac 30 MG/ML Syringe IV (15:25)
[2018-10-07] MEDS: Ondansetron 4 MG/2 ML Vial IV (15:25)
[2018-10-07] MEDS: 0.9% Normal Saline 1,000 ML 1000 ML IV (15:25)
[2018-10-07 15:31] LABS: POSITIVE COUNT NO; POSITIVE DIFFERENTIAL NO; POSITIVE MORPHOLOGY NO
[2018-10-07 15:36] LABS: Anion Gap 9 (5-15); BUN 13 mg/dL (7-18); Calcium,Total 9.1 mg/dL (8.5-10.1); Chloride 103 mmol/L (98-107); Creatinine, Serum 0.76 mg/dL (0.55-1.02); EST Glomerular Filtration Rate 88 mL/min (>60); Est Glom Filt Rate - Afr Amer 106 mL/min (>60); Estimated Creatinine Clearance 83.27 ml/min; Glucose 95 mg/dL (74-106); Potassium 3.5 mmol/L (3.5-5.1); Sodium Level 136 mmol/L (136-145)
[2018-10-07 15:48] VITALS: BP 124/80; PULSE 105; RESP 20; O2SAT 92
[2018-10-07 15:58] LABS: Pregnancy, Serum, hCG Quali. NEGATIVE Negative (0-9 Nonpreg)
--- NOTE | 2018-10-07 16:33 | ED.DCSUM_ITS ---
- ER Visit Summary Date of Service: 10/07/18 Chief Complaint: Shortness of breath, fever, chills History of Present Illness: The patient is a 43 F who yesterday developed generalized body aches, fever to 103, mild cough, sore throat. She has not been wanting to eat or drink much. She was seen at the [facility] yesterday and had a rapid strep that was negative. Physical Examination: Blood pressure is 127/84, temperature 98.3, heart rate 133, respiratory rate 16, pulse ox 95% on room air. Patient sitting upright in bed. She appears ill but not toxic. Head neck examination reveals mildly dry mucous membranes. Heart is regular rhythm but slightly tachycardic. Lungs sounds are clear. Abdomen is soft nontender. Skin examination was no rash or lesions. Test Results: CBC was normal white count with a left shift. Chemistry studies normal. test negative. Influenza swab negative. EKG is sinus tach at 103 with no acute ischemia. Portable chest x-ray shows a focal right infrahilar infiltrate. Emergency Department Course and Treatment: Patient is given a liter IV fluids along with Toradol and Zofran. On repeat evaluation she is resting comfortably. Test results are discussed with patient and at bedside and they are showed a copy of her x-ray. Should be treated with a course of Levaquin, first dose given here. Treatment Plan: [] Disposition: Discharge Impression: Pneumonia This note was generated with [employer] dictation software. It may contain incorrect words, spelling, and punctuation that were not noted in review of the chart prior to signing ED Disposition - Plan for ED Patient: Referrals: Scott Kurtz [Primary Care Provider] -
--- NOTE | 2018-10-07 16:33 | ED.DEP ---
ED Disposition - Plan for ED Patient: Disposition: Home or Assisted Living Instructions: ED Pneumonia Adult Prescriptions: Levofloxacin [Levaquin] 750 mg PO DAILY #4 tablet Referrals: Skip Sahu DO [NON-STAFF] - 1 Week
[2018-10-07 16:34] VITALS: BP 143/92; PULSE 106; RESP 16; O2SAT 97
[2018-10-07] MEDS: 0.9% Normal Saline 1,000 ML 250 ML IV (16:52)
[2018-10-07] MEDS: levoFLOXacin 750 MG Tablet PO (16:52)
== END 2018-10-07 17:46 | disposition home or self-care (01) ==
PROVIDERS: Emergency Provider Emergency Medicine
DX: J18.9 Pneumonia, unspecified organism (principal)
CPT/HCPCS: 71045; 80048; 84703; 85025; 87804; 93005; 96361; 96374; 96375; 99285; J7030; A4216; J2405

== ENCOUNTER → 2018-12-09 | Outpatient (CLI) | payer OTHER, SELFPAY ==
[2018-12-09 08:14] LABS: Bacteria 0 SEEN /hpf (None Seen); Mucous, Urine 0 SEEN /hpf (<or=2+); Squamous Epithelial Cells - UA 0 SEEN /hpf (5-10); White Blood Cells 0 SEEN /hpf (0-5)
[2018-12-09 08:48] LABS: Color, Urine Straw (Yellow); Glucose, Dipstick Normal (Normal); Ketone-Dipstick Negative (Negative); Leukocyte Esterase-Dipstick Negative /ul (Negative); Nitrite-Dipstick Negative (Negative); Occult Blood-Urine Negative /ul (Negative); Protein-Dipstick Negative (Negative); Specific Gravity, Urine 1.005 (1.002-1.030); Urine Bilirubin Dipstick Negative (Negative); Urine Clarity Clear (Clear); Urine Urobilinogen Normal (Normal); Urine pH 6.5 (5.0 - 8.0)
[2018-12-09 08:55] LABS: Erythrocyte Sedimentation Rate 49 mm/hr (0-20)
[2018-12-09 08:57] LABS: Absolute Lymphocyte Count 2.03 X10^3/ul (0.83-4.51); Absolute Neutrophil Count 5.8 X10^3/uL (2.0-7.7); Basophil# 0.02 X10^3/uL; Basophil% 0.2 % (0-1); Eosinophil# 0.04 X10^3/uL; Eosinophils% 0.5 % (0-5); Hemoglobin 14.8 g/dl (12.0-15.0); Lymphocyte # 2.03 X10^3/ul (4.0); Lymphocyte % 24.4 % (19-41); Mean Corp Hgb Conc 33.6 g/gl (32-36); Mean Corpuscular Volume 89.1 fL (81-99); Mean Platelet Vol. 11.5 fl (6.2-12.0); Monocyte# 0.43 X10^3/uL; Monocyte% 5.2 % (0-10); Neutrophil % 69.7 % (47-70); POSITIVE COUNT NO; POSITIVE DIFFERENTIAL NO; POSITIVE MORPHOLOGY NO; Platelet Count 92 K/mm3 (150-450); RBC Distribution Width CV 12.7 % (11.6-14.6); RBC Distribution Width SD 40.1 fl (35.1-43.9); Red Blood Count 4.94 M/mm3 (4.2-5.4); White Blood Count 8.3 K/mm3 (4.4-11.0)
[2018-12-09 09:20] LABS: Red Blood Cells-Urine 0-5 SEEN /hpf (0-5)
[2018-12-09 09:36] LABS: ALB/GLOB Ratio 0.8 RATIO (0.9-2.4); AST(SGOT) 11 U/L (15-37); Alanine Aminotransfer ALT/SGPT 22 U/L (13-56); Albumin, Serum 3.8 g/dL (3.2-5.0); Alkaline Phosphatase 75 U/L (45-117); Anion Gap 7 (5-15); BUN 20 mg/dL (7-18); BUN/Creat Ratio 26.1 RATIO (10-20); Calcium,Total 9.2 mg/dL (8.5-10.1); Chloride 105 mmol/L (98-107); Cholesterol 199 mg/dL (200); Creatinine, Serum 0.77 mg/dL (0.55-1.02); EST Glomerular Filtration Rate 88 mL/min (>60); Est Glom Filt Rate - Afr Amer 106 mL/min (>60); Ferritin 73 ng/mL (8-252); Globulin 4.9 g/dL (2.2-4.2); Glucose 98 mg/dL (74-106); High Density Lipoprotein 55 mg/dL; Iron 60 ug/dL (50-170); Iron Binding Capacity,Total 289 ug/dL (250-450); Protein, Total 8.7 g/dL (6.4-8.2); Rheumatoid Factor < 10.0 IU/mL (<15); Sodium Level 139 mmol/L (136-145); T4 Free Direct 1.37 ng/dL (0.76-1.46); Thyroid Stim Hormone (TSH) < 0.01 uIU/mL (0.358-3.74); Triglycerides 85 mg/dL; Very Low Density Lipoprotein 17 mg/dL (5-40)
[2018-12-09 13:20] LABS: Insulin 10.6 mU/L (2.6-37.6); Vitamin D,25 Hydroxy 87.4 ng/mL (29.95-100.01)
[2018-12-13 12:05] LABS: ANTINUCLEAR ANTIBODIES DIRECT Negative (Negative)
== END | disposition home or self-care (01) ==
LOC: LAB 08:09
PROVIDERS: Referring Provider Internal Medicine Endocrinology, Diabetes & Metabolism; Visit Provider Internal Medicine Endocrinology, Diabetes & Metabolism
DX: E03.9 Hypothyroidism, unspecified (principal); R53.83 Other fatigue; R31.9 Hematuria, unspecified
CPT/HCPCS: 36415; 80053; 80061; 81001; 82306; 82728; 83525; 83540; 83550; 84439; 84443; 84481; 85025; 85652; 86038; 86431

== ENCOUNTER → 2019-09-25 | Outpatient (CLI) | payer OTHER, SELFPAY ==
[2019-03-23 10:51] VITALS: BMI 34.1
== END | disposition home or self-care (01) ==
LOC: LABSPEC 14:14
PROVIDERS: Visit Provider Obstetrics & Gynecology
DX: N39.0 Urinary tract infection, site not specified (principal)
CPT/HCPCS: 87086; 87088

== ENCOUNTER → 2020-03-11 08:37 | Outpatient (CLI) | payer OTHER, SELFPAY ==
[2019-03-23 10:51] VITALS: BMI 34.1
[2020-03-11 09:30] LABS: Vitamin D,25 Hydroxy 38.5 ng/mL
[2020-03-11 09:37] LABS: ALB/GLOB Ratio 0.9 RATIO (0.9-2.4); AST(SGOT) 12 U/L (15-37); Alanine Aminotransfer ALT/SGPT 21 U/L (13-56); Albumin, Serum 3.6 g/dL (3.2-5.0); Alkaline Phosphatase 60 U/L (45-117); Anion Gap 3 (5-15); BUN 12 mg/dL (7-18); BUN/Creat Ratio 18.8 RATIO (10-20); Calcium,Total 8.5 mg/dL (8.5-10.1); Chloride 107 mmol/L (98-107); Cholesterol 217 mg/dL (200); Creatinine, Serum 0.64 mg/dL (0.55-1.02); EST Glomerular Filtration Rate 107 mL/min (>60); Est Glom Filt Rate - Afr Amer 130 mL/min (>60); Globulin 4.2 g/dL (2.2-4.2); Glucose 89 mg/dL (74-106); High Density Lipoprotein 45 mg/dL; Protein, Total 7.8 g/dL (6.4-8.2); Sodium Level 137 mmol/L (136-145); T4 Free Direct 1.07 ng/dL (0.76-1.46); Thyroid Stim Hormone (TSH) 2.28 uIU/mL (0.358-3.74); Triglycerides 142 mg/dL; Very Low Density Lipoprotein 28 mg/dL (5-40)
== END ==
PROVIDERS: PCP Nurse Practitioner Family; Visit Provider Nurse Practitioner Family
DX: E03.9 Hypothyroidism, unspecified (principal); I10 Essential (primary) hypertension; Z13.220 Encounter for screening for lipoid disorders; E55.9 Vitamin D deficiency, unspecified
CPT/HCPCS: 36415; 80053; 80061; 82306; 84439; 84443

== ENCOUNTER → 2021-01-01 10:29 | Outpatient (CLI) | payer OTHER, SELFPAY ==
[2019-03-23 10:51] VITALS: BMI 34.1
[2021-01-01 13:14] LABS: Hemoglobin 15.8 g/dL (12.0-15.0); Mean Corp Hgb Conc 32.2 g/dL (32-36); Mean Corpuscular Volume 93.2 fL (81-99); POSITIVE COUNT YES; RBC Distribution Width CV 12.3 % (11.6-14.6); RBC Distribution Width SD 42.1 fl (35.1-43.9); Red Blood Count 5.26 M/mm3 (4.2-5.4); White Blood Count 8.7 K/mm3 (4.4-11.0)
[2021-01-01 13:36] LABS: Differential Comment SCANNED; Scan Indicated on CBC? Y/N YES- FLAGS NOTED
[2021-01-01 13:47] LABS: T3 Total - Triiodothyronine 1.23 ng/mL (0.6-1.81)
[2021-01-01 13:55] LABS: ALB/GLOB Ratio 0.9 RATIO (0.9-2.4); AST(SGOT) 16 U/L (15-37); Alanine Aminotransfer ALT/SGPT 27 U/L (13-56); Albumin, Serum 4.2 g/dL (3.2-5.0); Alkaline Phosphatase 81 U/L (45-117); Anion Gap 11 (5-15); BUN 15 mg/dL (7-18); BUN/Creat Ratio 20.6 RATIO (10-20); Calcium,Total 8.8 mg/dL (8.5-10.1); Chloride 101 mmol/L (98-107); Creatinine, Serum 0.73 mg/dL (0.55-1.02); EST Glomerular Filtration Rate 92 mL/min (>60); Est Glom Filt Rate - Afr Amer 112 mL/min (>60); Ferritin 37 ng/mL (8-252); Free T3 2.9 pg/mL (2.18-3.98); Globulin 4.5 g/dL (2.2-4.2); Glucose 80 mg/dL (74-106); Iron 135 ug/dL (50-170); Iron Binding Capacity,Total 348 ug/dL (250-450); PERCENT IRON SATURATION 38.8 % (15.0-55.0); Protein, Total 8.7 g/dL (6.4-8.2); Sodium Level 138 mmol/L (136-145); T4 Free Direct 1.12 ng/dL (0.76-1.46); Thyroid Stim Hormone (TSH) 1.68 uIU/mL (0.358-3.74)
[2021-01-05 08:18] LABS: T3 Reverse 20.8 ng/dL (9.2-24.1)
[2021-01-05 10:26] LABS: HPV APTIMA, High Risk Negative (Negative)
== END ==
PROVIDERS: PCP Nurse Practitioner Family; Visit Provider Obstetrics & Gynecology
DX: R53.83 Other fatigue (principal); N92.0 Excessive and frequent menstruation with regular cycle; E03.9 Hypothyroidism, unspecified; R73.09 Other abnormal glucose; Z12.4 Encounter for screening for malignant neoplasm of cervix
CPT/HCPCS: 36415; 80053; 82728; 83540; 83550; 84439; 84443; 84480; 84481; 84482; 85027; 87624; 88175; G0145

== ENCOUNTER → 2021-01-08 14:50 | Outpatient (CLI) | payer OTHER, SELFPAY ==
[2019-03-23 10:51] VITALS: BMI 34.1
[2021-01-08 15:09] LABS: Hematocrit 42.5 % (37-47); Mean Corp Hgb Conc 32.9 g/dL (32-36); Mean Corpuscular Hgb 30.1 pg (27.0-32.0); Mean Corpuscular Volume 91.4 fL (81-99); Mean Platelet Vol. 9.8 fl (6.2-12.0); Platelet Count 259 K/mm3 (150-450); RBC Distribution Width CV 12.2 % (11.6-14.6); RBC Distribution Width SD 40.7 fl (35.1-43.9); Red Blood Count 4.65 M/mm3 (4.2-5.4); White Blood Count 9.7 K/mm3 (4.4-11.0)
== END ==
PROVIDERS: PCP Nurse Practitioner Family; Visit Provider Obstetrics & Gynecology
DX: N92.4 Excessive bleeding in the premenopausal period (principal)
CPT/HCPCS: 36415; 85027

== ENCOUNTER → 2021-02-05 15:11 | Outpatient (CLI) | payer SELFPAY, OTHER ==
[2019-03-23 10:51] VITALS: BMI 34.1
--- NOTE | 2021-02-05 15:14 | BI_ITS ---
MAMMOGRAPHY - BILATERAL SCREENING REASON FOR EXAM: Female, 45 years old. Routine annual screening examination. PERTINENT HISTORY: Non-contributory. TECHNIQUE: Digital bilateral breast he (3D mammographic acquisition) in the CC and MLO projections. 2-D mediolateral oblique (MLO) and craniocaudad (CC) views of both breasts were obtained. CAD: Full Field Digital Mammography with Computer Added Detection was performed. COMPARISON: None. Baseline examination. FINDINGS: Breast Composition: There are scattered areas of fibroglandular density. There are no dominant masses or suspicious calcifications. No other significant abnormalities are identified. BI/SCRN MAMM (CAD)W/HE BILAT IMPRESSION: Negative screening mammogram. Yearly followup mammogram recommended. (A) ASSESSMENT CATEGORY: BIRADS Category 1: Negative. A letter regarding these results will be sent to the patient by the facility within 30 days. Approximately 10% of breast cancers are not detected by mammography. A normal mammogram should not delay biopsy of a clinically suspicious abnormality. [id number] Electronically Signed: Bubab Yin MD at 8:09 EDT , Service support ,
== END ==
PROVIDERS: PCP Nurse Practitioner Family; Referring Provider Obstetrics & Gynecology; Visit Provider Obstetrics & Gynecology
DX: Z12.31 Encounter for screening mammogram for malignant neoplasm of breast (principal)
CPT/HCPCS: 77063; 77067

== ENCOUNTER → 2021-03-19 16:18 | Outpatient (CLI) | payer OTHER, SELFPAY ==
[2021-03-19 17:01] LABS: Amphetamine Urine VISTA NEGATIVE (<1000 ng/mL); Barbiturate Urine VISTA NEGATIVE (< 200 ng/mL); Benzodiazepine Urine VISTA NEGATIVE (< 200 ng/mL); Cocaine Urine VISTA NEGATIVE (< 300 ng/mL); Ecstacy Urine VISTA NEGATIVE (< 500 ng/mL); Methadone Urine VISTA NEGATIVE (< 300 ng/mL); PCP Urine VISTA NEGATIVE (< 25 ng/mL); THC Urine VISTA NEGATIVE (< 50 ng/mL); Vista UDS pH Range 5
== END ==
PROVIDERS: PCP Nurse Practitioner Family; Visit Provider Internal Medicine Pulmonary Disease
DX: G47.10 Hypersomnia, unspecified (principal)
CPT/HCPCS: 80307

== ENCOUNTER → 2021-04-03 15:46 | Outpatient (CLI) | payer SELFPAY ==
[2021-04-03 16:05] LABS: Bacteria 0 SEEN /hpf (None Seen); Mucous, Urine 0 SEEN /hpf (<or=2+); Red Blood Cells-Urine 0 SEEN /hpf (0-5); White Blood Cells 0 SEEN /hpf (0-5)
[2021-04-03 17:42] LABS: Color, Urine Yellow (Yellow); Glucose, Dipstick Normal (Normal); Ketone-Dipstick Negative (Negative); Leukocyte Esterase-Dipstick Negative /ul (Negative); Nitrite-Dipstick Negative (Negative); Occult Blood-Urine Negative /ul (Negative); Protein-Dipstick 100 mg/dl (Negative); Specific Gravity, Urine 1.025 (1.002-1.030); Urine Bilirubin Dipstick Negative (Negative); Urine Clarity Clear (Clear); Urine Urobilinogen Normal (Normal)
[2021-04-03 17:42] LABS: Absolute Neutrophil Count 6.5 X10^3/uL (2.0-7.7); Basophil# 0.03 X10^3/uL; Basophil% 0.3 % (0-1); Eosinophil# 0.06 X10^3/uL; Eosinophils% 0.6 % (0-5); Hematocrit 43.4 % (37-47); Hemoglobin 13.9 g/dL (12.0-15.0); Lymphocyte % 23.7 % (19-41); Mean Corpuscular Hgb 29.9 pg (27.0-32.0); Mean Corpuscular Volume 93.3 fL (81-99); Mean Platelet Vol. 10.7 fl (6.2-12.0); Monocyte# 0.47 X10^3/uL; Monocyte% 5.1 % (0-10); NRBC Flagged by Analyzer 0 % (0-5); Neutrophil % 70.2 % (47-70); POSITIVE COUNT YES; RBC Distribution Width CV 12.5 % (11.6-14.6); RBC Distribution Width SD 42.9 fl (35.1-43.9); Red Blood Count 4.65 M/mm3 (4.2-5.4); White Blood Count 9.3 K/mm3 (4.4-11.0)
[2021-04-03 17:45] LABS: Differential Indicated SCAN CRITERIA MET
[2021-04-03 17:54] LABS: Squamous Epithelial Cells - UA 0-5 SEEN /hpf (5-10)
[2021-04-03 18:05] LABS: ALB/GLOB Ratio 0.8 RATIO (0.9-2.4); AST(SGOT) 11 U/L (15-37); Alanine Aminotransfer ALT/SGPT 22 U/L (13-56); Albumin, Serum 3.5 g/dL (3.2-5.0); Alkaline Phosphatase 60 U/L (45-117); Anion Gap 6 (5-15); BUN 13 mg/dL (7-18); BUN/Creat Ratio 18.2 RATIO (10-20); Calcium,Total 8.9 mg/dL (8.5-10.1); Chloride 106 mmol/L (98-107); Cholesterol 219 mg/dL (200); Creatinine, Serum 0.71 mg/dL (0.55-1.02); EST Glomerular Filtration Rate 94 mL/min (>60); Est Glom Filt Rate - Afr Amer 114 mL/min (>60); Globulin 4.6 g/dL (2.2-4.2); Glucose 111 mg/dL (74-106); High Density Lipoprotein 44 mg/dL; Potassium 3.4 mmol/L (3.5-5.1); Protein, Total 8.1 g/dL (6.4-8.2); Rheumatoid Factor < 10.0 IU/mL (<15); Sodium Level 138 mmol/L (136-145); T4 Free Direct 0.95 ng/dL (0.76-1.46); Thyroid Stim Hormone (TSH) 1.59 uIU/mL (0.358-3.74); Triglycerides 161 mg/dL; Very Low Density Lipoprotein 32 mg/dL (5-40)
[2021-04-03 18:16] LABS: Vitamin D,25 Hydroxy 72.7 ng/mL
[2021-04-03 18:24] LABS: Anisocytosis RARE; Platelet Estimate ADEQUATE (ADEQ); Red Cell Morphology N CHROM NORMAL (NORM C&C)
[2021-04-03 18:25] LABS: Erythrocyte Sedimentation Rate 29 mm/hr (0-30); Macrocytosis RARE
[2021-04-07 16:56] LABS: ANTINUCLEAR ANTIBODIES DIRECT Negative (Negative)
[2021-04-07 18:08] LABS: Anti-Thyroglobulin AB < 1.0 IU/mL (0.0-0.9); Thyroid Peroxidase AB < 8 IU/mL (0-34)
== END ==
PROVIDERS: PCP Family Medicine; Referring Provider Family Medicine; Visit Provider Family Medicine
DX: E55.9 Vitamin D deficiency, unspecified (principal); Z86.39 Personal history of other endocrine, nutritional and metabolic disease; E66.01 Morbid (severe) obesity due to excess calories; M25.50 Pain in unspecified joint
CPT/HCPCS: 80053; 80061; 81001; 82306; 84432; 84439; 84443; 85025; 85652; 86038; 86376; 86431; 86800

== ENCOUNTER → 2021-04-16 11:18 | Outpatient (CLI) | payer SELFPAY, OTHER ==
--- NOTE | 2021-04-16 11:21 | US_ITS ---
INDICATION: NODULE EXAMINATION: Ultrasound US Thyroid (eg thyroid, parathyroid, parotid) TECHNIQUE: Hazel scale and color doppler imaging was performed of the thyroid gland. COMPARISON: None. FINDINGS: RIGHT THYROID LOBE: The right lobe of the thyroid gland is unremarkable in size measuring 4.5 x 1.5 x 1.0 cm. Homogeneous echotexture with normal vascularity. [No thyroid nodules are present. LEFT THYROID LOBE: The left lobe of the thyroid gland is unremarkable in size measuring 4.2 x 1.4 x 1.0 cm. . Homogeneous echotexture with normal vascularity. [No thyroid nodules are present. ISTHMUS: The isthmus demonstrates unremarkable homogenous echogenicity measuring 0.2 cm in AP diameter.. No thyroid nodules are present. There is an ovoid right neck lymph node demonstrating unremarkable contours and a fatty hilum measuring 1.2 x 0.6 x 0.5 cm. US/Thyroid IMPRESSION: Unremarkable thyroid ultrasound examination. Electronically Signed: Parker Taylor MD at 13:29 EDT Tel , Service support ,
== END ==
PROVIDERS: PCP Family Medicine; Referring Provider Family Medicine; Visit Provider Family Medicine
DX: E04.1 Nontoxic single thyroid nodule (principal)
CPT/HCPCS: 76536

== ENCOUNTER → 2021-05-02 14:00 | Outpatient (CLI) | payer SELFPAY, OTHER ==
--- NOTE | 2021-05-02 14:06 | RAD_ITS ---
STUDY: X-RAY - LEFT KNEE REASON FOR EXAM: Female, 45 years old. PAIN TECHNIQUE: 4 view(s) of the knee. COMPARISON: None. FINDINGS: Normal visualized distal femur. Normal visualized proximal tibia and fibula. Normal proximal tibiofibular articulation. There is moderate degenerative arthrosis of the medial femorotibial compartment with moderate joint space narrowing. There is mild degenerative arthrosis of the lateral femorotibial compartment. There is mild degenerative arthrosis of the patellofemoral articulation. The soft tissue structures are unremarkable. RAD/Knee 4 or More Views IMPRESSION: Degenerative arthrosis. Electronically Signed: Saige Hancock MD at 14:49 EDT Tel , Service support ,
--- NOTE | 2021-05-02 14:06 | RAD_ITS ---
STUDY: X-RAY - RIGHT KNEE REASON FOR EXAM: Female, 45 years old. PAIN TECHNIQUE: 4 view(s) of the knee. COMPARISON: None. FINDINGS: Normal visualized distal femur. Normal visualized proximal tibia and fibula. Normal proximal tibiofibular articulation. There is moderate degenerative arthrosis of the medial femorotibial compartment with moderate joint space narrowing. There is mild degenerative arthrosis of the lateral femorotibial compartment. There is moderate degenerative arthrosis of the patellofemoral articulation. The soft tissue structures are unremarkable. RAD/Knee 4 or More Views IMPRESSION: Degenerative arthrosis. Electronically Signed: Saige Hancock MD at 14:31 EDT Tel , Service support ,
== END ==
PROVIDERS: PCP Family Medicine; Referring Provider Family Medicine; Visit Provider Family Medicine
DX: M25.561 Pain in right knee (principal); M25.562 Pain in left knee
CPT/HCPCS: 73564

== ENCOUNTER 2021-10-23 11:19 | Outpatient (CLI) | payer SELFPAY ==
[2021-10-23 11:27] LABS: Bacteria 0 SEEN /hpf (None Seen); Mucous, Urine 0 SEEN /hpf (<or=2+); Red Blood Cells-Urine 0 SEEN /hpf (0-5); White Blood Cells 0 SEEN /hpf (0-5)
[2021-10-23 15:11] LABS: Color, Urine Yellow (Yellow); Glucose, Dipstick Normal (Normal); Ketone-Dipstick Negative (Negative); Leukocyte Esterase-Dipstick Negative /ul (Negative); Nitrite-Dipstick Negative (Negative); Occult Blood-Urine Negative /ul (Negative); Protein-Dipstick 30 mg/dl (Negative); Urine Bilirubin Dipstick Negative (Negative); Urine Clarity Clear (Clear); Urine Urobilinogen Normal (Normal)
[2021-10-23 15:12] LABS: Absolute Lymphocyte Count 2.39 X10^3/uL (0.83-4.51); Basophil# 0.02 X10^3/uL; Basophil% 0.2 % (0-1); Eosinophil# 0.03 X10^3/uL; Eosinophils% 0.3 % (0-5); Hematocrit 39.8 % (37-47); Hemoglobin 13.1 g/dL (12.0-15.0); Lymphocyte # 2.39 X10^3/ul (0.83-4.51); Lymphocyte % 26.5 % (19-41); Mean Corp Hgb Conc 32.9 g/dL (32-36); Mean Corpuscular Hgb 30.8 pg (27.0-32.0); Mean Corpuscular Volume 93.4 fL (81-99); Mean Platelet Vol. 12.6 fl (6.2-12.0); Monocyte# 0.53 X10^3/uL; Monocyte% 5.9 % (0-10); NRBC Flagged by Analyzer 0 % (0-5); Neutrophil # 6.03 X10^3/uL (2.7-7.7); Neutrophil % 66.9 % (47-70); POSITIVE COUNT YES; RBC Distribution Width SD 41.5 fl (35.1-43.9); Red Blood Count 4.26 M/mm3 (4.2-5.4)
[2021-10-23 15:14] LABS: Differential Indicated SCAN CRITERIA MET
[2021-10-23 15:16] LABS: Squamous Epithelial Cells - UA 0-5 SEEN /hpf (5-10)
[2021-10-23 15:26] LABS: Vitamin D,25 Hydroxy 57.3 ng/mL
[2021-10-23 15:39] LABS: AST(SGOT) 12 U/L (15-37); Alanine Aminotransfer ALT/SGPT 26 U/L (13-56); Albumin, Serum 3.8 g/dL (3.2-5.0); Alkaline Phosphatase 62 U/L (45-117); Anion Gap 6 (5-15); BUN 13 mg/dL (7-18); BUN/Creat Ratio 21.7 RATIO (10-20); Calcium,Total 8.5 mg/dL (8.5-10.1); Chloride 104 mmol/L (98-107); Cholesterol 235 mg/dL (200); EST Glomerular Filtration Rate 115 mL/min (>60); Est Glom Filt Rate - Afr Amer 139 mL/min (>60); Globulin 3.8 g/dL (2.2-4.2); Glucose 87 mg/dL (74-106); High Density Lipoprotein 52 mg/dL; Potassium 3.5 mmol/L (3.5-5.1); Protein, Total 7.6 g/dL (6.4-8.2); Sodium Level 137 mmol/L (136-145); Thyroid Stim Hormone (TSH) 1.52 uIU/mL (0.358-3.74); Triglycerides 119 mg/dL; Very Low Density Lipoprotein 24 mg/dL (5-40)
[2021-10-23 15:54] LABS: Platelet Estimate ADEQUATE (ADEQ); Red Cell Morphology NORM C+C NORMAL (NORM C&C)
== END 2021-10-23 23:59 | disposition home or self-care (01) ==
PROVIDERS: PCP Family Medicine; Referring Provider Family Medicine; Visit Provider Family Medicine
DX: I10 Essential (primary) hypertension (principal); Z86.39 Personal history of other endocrine, nutritional and metabolic disease; E55.9 Vitamin D deficiency, unspecified
CPT/HCPCS: 36415; 80053; 80061; 81001; 82306; 84439; 84443; 85025

== ENCOUNTER → 2022-04-28 | Outpatient (CLI) | payer SELFPAY ==
[2022-04-28 12:40] LABS: Absolute Lymphocyte Count 1.89 X10^3/uL (0.83-4.51); Absolute Neutrophil Count 5.6 X10^3/uL (2.0-7.7); Basophil# 0.03 X10^3/uL; Basophil% 0.4 % (0-1); Eosinophil# 0.03 X10^3/uL; Eosinophils% 0.4 % (0-5); Hematocrit 40.9 % (37-47); Lymphocyte # 1.89 X10^3/ul (0.83-4.51); Lymphocyte % 23.5 % (19-41); Mean Corp Hgb Conc 31.8 g/dL (32-36); Mean Corpuscular Volume 97.4 fL (81-99); Mean Platelet Vol. 12.5 fl (6.2-12.0); Monocyte# 0.48 X10^3/uL; NRBC Flagged by Analyzer 0 % (0-5); Neutrophil # 5.59 X10^3/uL (2.7-7.7); Neutrophil % 69.6 % (47-70); POSITIVE COUNT YES; RBC Distribution Width CV 12.3 % (11.6-14.6); RBC Distribution Width SD 43.8 fl (35.1-43.9)
[2022-04-28 12:41] LABS: Differential Indicated SCAN CRITERIA MET
[2022-04-28 12:48] LABS: Vitamin D,25 Hydroxy 78.6 ng/mL
[2022-04-28 12:59] LABS: ALB/GLOB Ratio 0.9 RATIO (0.9-2.4); AST(SGOT) 11 U/L (15-37); Alanine Aminotransfer ALT/SGPT 27 U/L (13-56); Albumin, Serum 3.6 g/dL (3.2-5.0); Alkaline Phosphatase 62 U/L (45-117); Anion Gap 6 (5-15); BUN 12 mg/dL (7-18); Calcium,Total 8.9 mg/dL (8.5-10.1); Chloride 107 mmol/L (98-107); Cholesterol 223 mg/dL (200); EST Glomerular Filtration Rate 115 mL/min (>60); Est Glom Filt Rate - Afr Amer 139 mL/min (>60); Globulin 3.9 g/dL (2.2-4.2); Glucose 94 mg/dL (74-106); High Density Lipoprotein 51 mg/dL; Protein, Total 7.5 g/dL (6.4-8.2); Sodium Level 139 mmol/L (136-145); Triglycerides 126 mg/dL; Very Low Density Lipoprotein 25 mg/dL (5-40)
[2022-04-28 13:18] LABS: Platelet Estimate SLT DEC (ADEQ)
== END | disposition home or self-care (01) ==
PROVIDERS: PCP Family Medicine; Referring Provider Family Medicine; Visit Provider Family Medicine
DX: I10 Essential (primary) hypertension (principal); E55.9 Vitamin D deficiency, unspecified
CPT/HCPCS: 36415; 80053; 80061; 82306; 85025

== ENCOUNTER → 2022-10-27 | Outpatient (CLI) | payer SELFPAY ==
[2022-10-27 09:17] LABS: Bacteria 0 SEEN /hpf (None Seen); Mucous, Urine 0 SEEN /hpf (<or=2+); Red Blood Cells-Urine 0 SEEN /hpf (0-5); Squamous Epithelial Cells - UA 0 SEEN /hpf (5-10); White Blood Cells 0 SEEN /hpf (0-5)
[2022-10-27 10:17] LABS: Absolute Lymphocyte Count 2.25 X10^3/uL (0.83-4.51); Absolute Neutrophil Count 5.6 X10^3/uL (2.0-7.7); Basophil# 0.04 X10^3/uL; Basophil% 0.5 % (0-1); Eosinophil# 0.06 X10^3/uL; Eosinophils% 0.7 % (0-5); Hematocrit 43.3 % (37-47); Lymphocyte # 2.25 X10^3/ul (0.83-4.51); Lymphocyte % 26.4 % (19-41); Mean Corp Hgb Conc 32.3 g/dL (32-36); Mean Corpuscular Volume 95.8 fL (81-99); Monocyte# 0.53 X10^3/uL; Monocyte% 6.2 % (0-10); NRBC Flagged by Analyzer 0 % (0-5); Neutrophil # 5.61 X10^3/uL (2.7-7.7); Neutrophil % 65.8 % (47-70); POSITIVE COUNT YES; RBC Distribution Width CV 12.1 % (11.6-14.6); RBC Distribution Width SD 42.3 fl (35.1-43.9); Red Blood Count 4.52 M/mm3 (4.2-5.4); White Blood Count 8.5 K/mm3 (4.4-11.0)
[2022-10-27 10:21] LABS: Color, Urine Yellow (Yellow); Glucose, Dipstick Normal (Normal); Ketone-Dipstick Negative (Negative); Leukocyte Esterase-Dipstick Negative /ul (Negative); Nitrite-Dipstick Negative (Negative); Occult Blood-Urine Negative /ul (Negative); Protein-Dipstick Negative (Negative); Urine Bilirubin Dipstick Negative (Negative); Urine Clarity Clear (Clear); Urine Urobilinogen Normal (Normal)
[2022-10-27 10:47] LABS: Vitamin D,25 Hydroxy 58.4 ng/mL
[2022-10-27 10:49] LABS: Differential Indicated SCAN CRITERIA MET
[2022-10-27 10:50] LABS: Differential Comment SCANNED; Platelet Estimate ADEQUATE (ADEQ)
[2022-10-27 11:13] LABS: ALB/GLOB Ratio 0.9 RATIO (0.9-2.4); AST(SGOT) 12 U/L (15-37); Alanine Aminotransfer ALT/SGPT 27 U/L (13-56); Albumin, Serum 3.7 g/dL (3.2-5.0); Alkaline Phosphatase 66 U/L (45-117); Anion Gap 5 (5-15); BUN 15 mg/dL (7-18); BUN/Creat Ratio 26.9 RATIO (10-20); Calcium,Total 8.7 mg/dL (8.5-10.1); Chloride 105 mmol/L (98-107); Cholesterol 229 mg/dL (200); Creatinine, Serum 0.56 mg/dL (0.55-1.02); EST Glomerular Filtration Rate 124 mL/min (>60); Est Glom Filt Rate - Afr Amer 150 mL/min (>60); Globulin 3.9 g/dL (2.2-4.2); Glucose 90 mg/dL (74-106); High Density Lipoprotein 54 mg/dL; Potassium 3.8 mmol/L (3.5-5.1); Protein, Total 7.6 g/dL (6.4-8.2); Sodium Level 134 mmol/L (136-145); Thyroid Stim Hormone (TSH) 2.16 uIU/mL (0.358-3.74); Triglycerides 128 mg/dL; Very Low Density Lipoprotein 26 mg/dL (5-40)
== END | disposition home or self-care (01) ==
PROVIDERS: PCP Family Medicine; Referring Provider Family Medicine; Visit Provider Family Medicine
DX: I10 Essential (primary) hypertension (principal); E78.5 Hyperlipidemia, unspecified; E55.9 Vitamin D deficiency, unspecified
CPT/HCPCS: 36415; 80053; 80061; 81001; 82306; 84443; 85025

== ENCOUNTER 2023-04-13 13:00 | Outpatient (RCR) | payer SELFPAY, OTHER ==
--- NOTE | 2023-03-08 14:08 | HP.PTEVAL_ITS ---
Patient's Visit Information Visit Information Visit Information: LONA ALBRECHT is a 47 year old F referred to Physical Therapy by Dr. Obey Griffith MD with a diagnosis of B knee OA. Date of Evaluation: 03/08/23 Physical Therapist: Brett Leblanc, DPT, OCS, CSCS Visit Plan Frequency: 2x /Week Duration: 4-6 Weeks Plan: 2x/week for 2-4 weeks in quatic therapy to teach strength of LE/core, quad stretch, knee ROM encouraging endrange flexion. Tedach calorie burning e, PT to go to [facility] in 2 week and to continue there until f/u after trip with PT. Give SLR HEP also to tolerance. Subjective Subjective: I have both knees bone on bone adn OA. Too you for TKAs so managing it by doing the bare minimum. Had gel shots. Barely can do stairs. Has done vibration and stretches. I have steps but avoids them due to pain. They buckle on steps sometimes, can go one at a time with pain fairly safely. Pain to 4/10 on good day adn 8-9/10 on bad day. Not sure why some days are bad. menstrual cycle may make her worse. Many varicose veins in knees. Basic ADLs are getting done. Staying tidy at home but not deep cleaning. Avoids hard pedalling. Has family of 7 and everybody chips in. Cannot walk to [employer] at end of [place]. Hobbies when knees feel good are sewing abd mustafa but outdoor work is minimized. Sleep is OK. No regular exercises: stretches, quad stretch, stadning HS stretch, Pain B knees anterior: Pain Intensity (Out of 10): 0 Pain Intensity Range: 0 and 8 Comment: R>L Objective Objective: Walk avoiding much knee flexion but safe and I. Transfers slow adn labored but I chair and bed. Steps preferring L and requires rail but I. R kne eAROM -2 to 110 and L knee 0-115. Both limited by pain if pushed passively. Hip and ankle AROM WFL. has tightness obvious in B quads, gastroc to 2 DF. strength hips 3+ abd, ext 3+, no pain. knee fkexion adn ext strength 3 ext with pain and 4- flexion with pain L only. ankle strength 4+ B. - varus and valgus B. + bounce home R. + scour B. Balance/Special Test Scores Lower Extremity Functional Score: 31 Goals Goal 1:: I apporpirate pool based program for pool in [place] Goal Time Frame: 2 Weeks Goal 2:: Pain 2/10 at worst adn 75% improved. Goal Time Frame: 4-6 Weeks Goal 3:: Pt able to walk down to shop without increased pain Goal Time Frame: 4-6 Weeks Goal 4:: steps reciprocal with one rail wihtout pain Goal Time Frame: 4-6 Weeks Goal 5:: 118 aROM B knees to make steps tolerable Goal Time Frame: 4-6 Weeks Rehabilitation Potential Physical Therapy Diagnosis: B knee OA adn pain limiting function Rehabilitation Potential: Fair Anticipated Interventions Patient/Client Instruction: Educate patient on: Condition and Plan of Care For the Purpose of:: To decrease pain, To increase ROM, To improve nutrient delivery to tissue, To improve muscle performance and motor function, To increase tolerance to activity/condition/position and To improve ability of physical actions for home/community/work/leisure Therapeutic Exercise to Include: Strength training, In an aquatic setting, Passive ROM and Active ROM For the Purpose of:: To decrease pain, To increase ROM, To improve nutrient delivery to tissue, To improve muscle performance and motor function, To decrease level of supervision to perform tasks and To improve ability of physical actions for home/community/work/leisure Text: Thank you for the opportunity to evaluate your patient. For Medicare and Medicare HMO plans, please review the plan of care and approve it. It will need to be FAXED BACK to us at [phone] for Medicare purposes. For Medicare only, by signing this I certify the plan of care. Please let me know if there are questions or concerns regarding this plan of care. Physician Signature: Date:
--- NOTE | 2023-04-13 13:35 | HP.PTDCSUM ---
Discharge Summary D/C summary: It has been my pleasure to treat LONA ALBRECHT referred by Dr. Obey Griffith MD, with the diagnosis of B knee OA for a total of 5 visit(s). Discharge Date: 04/13/23 Please see the following information for a summary of their discharge status. Subjective Subjective: Was on feet last week and back to square one after running a benefit. 6/10 R knee today and was 9/10 last week after benefit and hard to walk. Was doing better for a couple hours after pool. did exercises in the pool in [facility] which felt good. To doctor next week, Dr. Griffith. TKA might be next step. Sleeping is OK most of the time. Pain B knees anterior: Pain Intensity (Out of 10): 6 Overall Improvement % Improvement: 0 Objective Objective/Function: 0-115 arom B knees walking well today without antalgia, steps reciprocal with one rail. subjective lack of improvement is biggest complaint, limiting her life. Goals Goal 1:: I apporpirate pool based program for pool in [facility] Goal Progress: Goal Met Goal 2:: Pain 2/10 at worst adn 75% improved. Goal Progress: Not Progressing Goal 3:: Pt able to walk down to shop without increased pain Goal Progress: Not Progressing Goal 4:: steps reciprocal with one rail wihtout pain Goal Progress: Progressing Goal 5:: 118 aROM B knees to make steps tolerable Goal Progress: 115 Plan Plan: d/c, pt to see doctor next week for next step D/C Information Discharge Comments: back to doctor. d/c sentence: If there are questions or concerns regarding this patient's physical therapy, please feel free to call me at [phone]. Thank you for the referral of this patient. Sincerely, Brett Leblanc, DPT, OCS, CSCS Balance/Gait/Functional tests Balance/Special Test Scores Lower Extremity Functional Score: 38 Improvement % Improvement: 0
== END 2023-04-13 19:00 | disposition home or self-care (01) ==
LOC: PT 13:00
PROVIDERS: PCP Family Medicine; Referring Provider Orthopaedic Surgery; Visit Provider Orthopaedic Surgery
DX: M17.0 Bilateral primary osteoarthritis of knee (principal)
CPT/HCPCS: 97110; 97113; 97161; 97164

== ENCOUNTER 2023-08-02 09:30 | Outpatient (RCR) | payer SELFPAY, OTHER ==
--- NOTE | 2023-06-21 10:37 | HP.PTEVAL_ITS ---
Patient's Visit Information Visit Information Visit Information: LONA ALBRECHT is a 47 year old F referred to Physical Therapy by Dr. Charla Mariscal DO with a diagnosis of knee OA pain. Date of Evaluation: 06/21/23 Physical Therapist: Brett Leblanc, DPT, OCS, CSCS Visit Plan Frequency: 2-3x /Week Duration: 4-6 Weeks Plan: 2-3x/week for 4-6 week around [place] vacation for pool based knee strength and progressive WB ex HEP for strength of hips, core, knees. Also work on B knee flexion ROM and R knee ext ROM trying to get to 120 for stair comfort. Also stretch quads work all to I pool program for d/c and complement with home based strength and strethcing Pt doing knee flexion ROM B 10x 2x/day as HEP. Subjective Subjective: Bone on bone B knees. Had aquatic therapy earlier in the year which helped short term. had stem cells from Dr. Mariscal which really helped, just feels tight.Feels weak on L leg to do steps. Can sit comfortably. Not doing exercises other than stretches. Pain is up to 3/10 at times but only if overdoes it. Limps on R knee. Had injections in B knees. Sleep is Ok. Activities are OK, avoids stairs, 5 children help her here. Feels like limp due to tightness on R and habit. Weak in legs. Pain B knees: Pain Intensity (Out of 10): 1 Pain Intensity Range: 0 and 3 Objective Objective: Walks with slight R antalgia but I, steps are reciprocal but weakness apparent and some R knee tightness more than pain with bending. Transfers are I with UE bed and chair. Tightness present in quads B AROM R knee -2 to 109 and L knee 0-114 hips and ankle aROM WFL. 2/3 patella and achilles reflexes sensation LE WNL to gross light touch. strength is 4/5 in quadand HS without pain today, hips are 4-/5 abd and flexiona nd ext no pain. ankles are 4+/5 without pain. Balance/Special Test Scores Lower Extremity Functional Score: 40 Goals Goal 1:: knee AORM 0-120 B knees without tightness to help on steps Goal Time Frame: 4-6 Weeks Goal 2:: I appropr pool based ex 2-3x/week then membvership for maintenance. Goal Time Frame: 4-6 Weeks Goal 3:: Pt feel 80% bettter in overall knee pain and function Goal Time Frame: 4-6 Weeks Goal 4:: LEFS 50 Goal Time Frame: 4-6 Weeks Rehabilitation Potential Physical Therapy Diagnosis: knee stiffness and weakness limiting comfort and funciton Rehabilitation Potential: Fair Anticipated Interventions Patient/Client Instruction: Educate patient on: Condition and Plan of Care For the Purpose of:: To decrease pain, To increase ROM, To improve nutrient delivery to tissue, To improve muscle performance and motor function, To increase tolerance to activity/condition/position and To improve ability of physical actions for home/community/work/leisure Therapeutic Exercise to Include: Strength training, Flexibilty training, In an aquatic setting, Passive ROM and Active ROM For the Purpose of:: To decrease pain, To increase ROM, To improve nutrient delivery to tissue, To improve muscle performance and motor function, To increase tolerance to activity/condition/position and To improve gait and locomotor functions Text: Thank you for the opportunity to evaluate your patient. For Medicare and Medicare HMO plans, please review the plan of care and approve it. It will need to be FAXED BACK to us at [phone] for Medicare purposes. For Medicare only, by signing this I certify the plan of care. Please let me know if there are questions or concerns regarding this plan of care. Physician Signature: Date:
--- NOTE | 2023-08-02 09:51 | HP.PTDCSUM ---
Discharge Summary D/C summary: It has been my pleasure to treat LONA Kahlil ALBRECHT referred by Dr. Charla Mariscal DO, with the diagnosis of knee OA pain for a total of 5 visit(s). Discharge Date: 08/02/23 Please see the following information for a summary of their discharge status. Subjective Subjective: Better. Doesn't hurt hardly at all. Could make it hurt if I walk too much. Limps at times but doesn't hurt. Activities are normal, I do not run. Walked miles in [facility] without a problem but was tired. HEP: OK at home adn in pool. Going back to [facility] in August Pain B knees: Pain Intensity (Out of 10): 2 Overall Improvement % Improvement: 98 Objective Objective/Function: 0-120 AROM B knees with just stiffness. Walking without antalgia today. Weakness descneding steps gives poor confidence and is noticeable but functional. Doing well overall and happy with progress. Goals Goal 1:: knee AORM 0-120 B knees without tightness to help on steps Goal Progress: Goal Met Goal 2:: I appropr pool based ex 2-3x/week then membvership for maintenance. Goal Progress: Goal Met Goal 3:: Pt feel 80% bettter in overall knee pain and function Goal Progress: 98% Goal 4:: LEFS 50 Goal Progress: Goal Met Plan Plan: d/c to HEP D/C Information Discharge Comments: Pt to do HEP on own and pool when in [facility] in a few weeks. d/c sentence: If there are questions or concerns regarding this patient's physical therapy, please feel free to call me at [phone]. Thank you for the referral of this patient. Sincerely, Brett Leblanc, DPT, OCS, CSCS Balance/Gait/Functional tests Balance/Special Test Scores Lower Extremity Functional Score: 55 Improvement % Improvement: 98
== END 2023-08-02 19:00 | disposition home or self-care (01) ==
LOC: PT 09:30
PROVIDERS: PCP Family Medicine; Referring Provider Internal Medicine; Visit Provider Internal Medicine
DX: M17.10 Unilateral primary osteoarthritis, unspecified knee (principal); M25.569 Pain in unspecified knee
CPT/HCPCS: 97113; 97161; 97164

== ENCOUNTER → 2024-03-27 | Outpatient (CLI) | payer SELFPAY, OTHER ==
--- NOTE | 2024-03-27 13:38 | US_ITS ---
STUDY: ULTRASOUND OF THE FEMALE PELVIS - COMPLETE REASON FOR EXAM: Female, 48 years old. vaginal bleeding, abnormal LMP: TECHNIQUE: Transabdominal and transvaginal TECHNICAL QUALITY: Adequate. COMPARISON: None. FINDINGS: The uterus is anteverted and is in a midline position. The uterus measures 9.4 x 6.8 x 4.9 cm. Normal uterine cervix. The endometrium measures 10-11 mm in thickness, and is hyperechoic. There is no demonstrated endometrial mass. There is no demonstrated myometrial mass. I.U.D. - The patient does not have an I.U.D. The right ovary is visualized. The right ovary measures 2.2 x 2.2 x 1.1 cm. There is no right ovarian cyst or ovarian mass. There is no visualized right adnexal mass or complex lesion. There is normal arterial and normal venous vascularity. The left ovary is visualized. The left ovary measures 2.7 x 3 x 1.4 cm. There is a cyst measuring 1.5 x 1.7 x ,7 cm. There is no visualized left adnexal mass or complex lesion. There is normal arterial and normal venous vascularity. There is no fluid in the cul-de-sac. The pre void volume of the bladder was 71.06 ml. US/Pelvic w/ Transvaginal IMPRESSION: Thickened endometrial lining of uncertain clinical significance. If patient is postmenopausal some consideration should be given to excluding possibility of endometrial hyperplasia or neoplasia.. Small left ovarian cyst measuring 1.5 x 1.7 x .7 Electronically Signed: aJsbir Martinez MD at 22:47 EDT ,
== END | disposition home or self-care (01) ==
PROVIDERS: PCP Internal Medicine; Referring Provider Internal Medicine; Visit Provider Internal Medicine
DX: N93.9 Abnormal uterine and vaginal bleeding, unspecified (principal)
CPT/HCPCS: 76830; 76856

== ENCOUNTER → 2025-04-23 | Outpatient (CLI) | payer OTHER, SELFPAY ==
[2025-04-23 10:48] LABS: Hematocrit 39.8 % (37-47); Hemoglobin 12.9 g/dL (12.0-15.0); Immature Granulocytes Count 0.010 X10^3/uL (0.0-0.0); Mean Corp Hgb Conc 32.4 g/dL (32-36); Mean Corpuscular Volume 95.9 fL (81-99); Mean Platelet Vol. 9.9 fl (6.2-12.0); NRBC Flagged by Analyzer 0 % (0-5); Platelet Count 155 K/mm3 (150-450); RBC Distribution Width CV 13.2 % (11.6-14.6); RBC Distribution Width SD 46.9 fl (35.1-43.9); Red Blood Count 4.15 M/mm3 (4.2-5.4); White Blood Count 6.3 K/mm3 (4.4-11.0)
== END | disposition home or self-care (01) ==
LOC: LAB 09:32
PROVIDERS: PCP Internal Medicine
DX: Z01.818 Encounter for other preprocedural examination (principal)
CPT/HCPCS: 36415; 85025

== ENCOUNTER 2025-06-20 13:30 | Outpatient (RCR) | payer SELFPAY, OTHER ==
--- NOTE | 2025-05-08 13:40 | HP.PTEVAL_ITS ---
Patient's Visit Information Visit Information Visit Information: LONA ALBRECHT is a 49 year old F referred to Physical Therapy by SEAN KIM with a diagnosis of L TKA, DOS: 05/03/25. Date of Evaluation: 05/04/25 Physical Therapist: Kirk Sandoval DPT Visit Plan Frequency: 3x /Week Duration: 6 Weeks Plan: L knee ROM progressing to 0-0-120deg. quad iso progressing to functional strengthening gait progression to No AD May use vaso/ice as needed for edema control. Subjective Subjective: Pt. is here today for her initial evaluation with diagnosis of L knee OA with arthroplasty on 05/03/25. Pt. arrives using FWW with good tolerance. Pt. reports no N/T. no difficulty breathing, no signs of infection. Pt. is having some pain with walking, sleeping. She has been doing some stretching with decent tolerance. Pt. had her R knee replaced 6 weeks ago. Pt. is hopeful to get back to all household activities without limitations. Pain L knee: Pain Intensity (Out of 10): 5 Pain Intensity Range: 2 and 8 Objective Objective: POSTURE: Pt. has increased wt. shift to R side. Pt. lacks TKE during stance on L side. PALPATION: Pt. has negative homans sign. Pt. dumont increased edema in L LLE. NEURO: normal throughout. ROM: L Knee 0-3-73deg. Pt. has tightness in her HS as well. MMT: L knee: ext 3#, flexion 8#; hip: flexion 0#, abd 5#. GAIT: Pt. ambulates with FWW. PT. lacks TKE during stance phase, slight knee flexion during swing phase. STAIRS: step to pattern with 2 HR. TU.9sec with FWW 30sec sit to stand test: 7 with use of UEs. Balance/Special Test Scores Lower Extremity Functional Score: 4 Goals Goal 1:: LTG: Pt. to have increased L knee ROM to 0-0-120deg. Goal Time Frame: 4-6 Weeks Goal 2:: LTG: Pt. to ambulate without AD with normal gait pattern. Goal Time Frame: 4-6 Weeks Goal 3:: LTG: Pt. to sleep throughout the night without increase in L knee pain. Goal Time Frame: 4-6 Weeks Goal 4:: LTG: Pt. to negotiate stairs with reciprocal pattern with 1 HR allowing access throughout her home. Goal Time Frame: 4-6 Weeks Goal 5:: LTG: Pt to complete 30sec sit to stand test with at least 15 reps. Goal Time Frame: 4-6 Weeks Goal 6:: LTG: Pt. to have symmetrical strength between BLEs. Goal Time Frame: 4-6 Weeks Rehabilitation Potential Physical Therapy Diagnosis: Pt. has signs and symptoms consistent with L TKA, DOS: 05/03/25. Pt. has marked hypomobility, weakness, difficulty with walking. Pt. would benefit from PT to address the above limitations progressing back all ADLs and recreational activities with good tolerance. Rehabilitation Potential: Excellent Anticipated Interventions Patient/Client Instruction: Educate patient on: Condition, Plan of Care, Risk Factors and Benefits of Fitness Program For the Purpose of:: To foster healthy habits, To improve decision making, To facilitate caregiver knowledge, To improve self management, To prevent re-injury and To improve ability to perform tasks related to life management Therapeutic Exercise to Include: Strength training, Power training, Balance training, Coordination, Body mechanics, Postural training, Flexibilty training, Gait and locomotor training, Passive ROM and Active ROM For the Purpose of:: To decrease pain, To decrease swelling/inflammation, To increase ROM, To improve nutrient delivery to tissue, To increase oxygenation perfusion, To improve muscle performance and motor function, To improve ability to perform ADL's, To increase tolerance to activity/condition/position, To improve performance and independence with ADL's, To decrease level of supervision to perform tasks, To improve ability of physical actions for home/community/work/leisure, To improve gait and locomotor functions, To decrease soft tissue restriction, To increase flexibility/ROM and To improve endurance Text: Thank you for the opportunity to evaluate your patient. For Medicare and Medicare HMO plans, please review the plan of care and approve it. It will need to be FAXED BACK to us at [phone] for Medicare purposes. For Medicare only, by signing this I certify the plan of care. Please let me know if there are questions or concerns regarding this plan of care. Physician Signature:__ Date:
--- NOTE | 2025-06-21 08:35 | HP.PTDCSUM_ITS ---
Discharge Summary D/C summary: It has been my pleasure to treat LONA ALBRECHT referred by SEAN KIM, with the diagnosis of L TKA, DOS: 05/03/25 for a total of 11 visit(s). Discharge Date: 06/21/25 Please see the following information for a summary of their discharge status. Subjective Subjective: Pt. just got back from [place] and is doing well. Pt. arrives without AD and is walking well. Pt. very pleased. Pt. to see physician next week then is going back to [place]. Pain L knee: Pain Intensity (Out of 10): 0 Overall Improvement % Improvement: 75 Objective Objective/Function: ROM: 0-0-121deg. MMT: Pt. has symmetrical strength between BLEs 30sec sit to stand 16 without use of UEs TUG 8.2 sec no AD STAIRS: reciprocal pattern with 1 HR both ascending and descending GAIT: Pt. has normal gait mechanics, no marked antalgic pattern noted. Pt.'s incision does have some slight abrasions on it. Not open. Pt. reports her dress rubs on it at times. I talked to her about bringing this up with physician Pt. consents. Pt. is overall doing great. She will be DC from PT at this point in time. Goals Goal 1:: LTG: Pt. to have increased L knee ROM to 0-0-120deg allowing for increased ability to negotiate steps. Goal Progress: Goal Met Goal 2:: LTG: Pt. to ambulate without AD with normal gait pattern allowing for safe community mobility. Goal Progress: Goal Met Goal 3:: LTG: Pt. to sleep throughout the night without increase in L knee pain. Goal Progress: Goal Met Goal 4:: LTG: Pt. to negotiate stairs with reciprocal pattern with 1 HR allowing access throughout her home. Goal Progress: Goal Met Goal 5:: LTG: Pt to complete 30sec sit to stand test with at least 15 reps indicating increased functional strength Goal Progress: Goal Met Goal 6:: LTG: Pt. to have symmetrical strength between BLEs. Goal Progress: Goal Met Plan Plan: Pt. D/C Information d/c sentence: If there are questions or concerns regarding this patient's physical therapy, please feel free to call me at [phone]. Thank you for the referral of this patient. Sincerely, Kirk L Sipos, DPT Balance/Gait/Functional tests Balance/Special Test Scores Lower Extremity Functional Score: 63 TUG Test Time Seconds: 8.2 Tug Test: <10 sec.=free mobile 30 Second Chair Rise Test Seconds: 16 Improvement % Improvement: 75
== END 2025-06-20 19:00 | disposition home or self-care (01) ==
LOC: PT 13:30
PROVIDERS: PCP Internal Medicine
DX: M17.0 Bilateral primary osteoarthritis of knee (principal); M25.561 Pain in right knee; M25.562 Pain in left knee
CPT/HCPCS: 97110; 97140; 97161; 97530